=== PATIENT | male | born 1975 | race Caucasian/White ===

== ENCOUNTER 2025-01-28 15:33 | Outpatient (AMB) | payer MEDICAID, SELFPAY ==
--- NOTE | 2025-01-28 15:44 | MHC.OFFVIS ---
Intake Visit Reasons: MEMORY/GAIT ISSUES Allergies venom-honey bee Allergy (Unknown, Verified 01/27/25 10:24) Unknown Medication List - Last Reconciled 01/28/25 by Carmelita Capone MD atorvastatin (Lipitor) 20 mg PO DAILY ergocalciferol (vitamin D2) 1,250 mcg PO QWEEK gabapentin 300 mg PO TID lactulose 30 mL PO BID venlafaxine ER 75 mg PO BEDTIME HPI Comments Details: This is a 49-year-old man with a history of hyperlipidemia pancreatitis and chronic alcohol abuse with heavy drinking for more than 10 years who quit alcohol about a year ago. Since then he has noted significant memory problems that short-term memory. He is also treated for depression and has chronic neck and shoulder pain from arthritis. [facility] Medical History (Updated 01/28/25 @ 15:55 by Carmelita Capone MD) Impaired memory Review of Systems Const Reports headache(s) and Reports weight loss Eyes Reports diplopia ENT Details: Decreased hearing Reports dizziness, Reports headache(s) and Reports sinus pressure Card Reports dyspnea Resp Reports dyspnea Details: Urinary frequency Reports erectile dysfunction Musc Reports numbness and Reports tingling Neuro Reports dizziness, Reports headache(s), Reports memory loss, Reports numbness, Reports tingling and Reports tremor(s) Psych Reports anxiety, Reports depression and Reports memory loss Physical Exam Neuro Other: ?Mini Mental Status Exam Level of Consciousness:?Alert.? Orientation:?Knows correct year, month, date, day and season.?Knows correct city, county and state. Knows correct location and floor.? Registration:?Able to register 3 objects.? Attention:?Serial 7's performed accurately.? Recall:?Able to recall 3 out of 3 objects.? Language:?Normal spontaneous speech, fluency, repetition, naming, comprehension, reading, and writing.? Total Score:?30/30.? Neurological Abnormal neurological findings:??Hyperreflexia 3+ in the upper and lower extremities except for diminished ankle reflexes. Mental Status:?Alert and oriented X 3.?Normal attention, orientation, memory, and affect.? Cranial Nerves:?Pupils are equal, round and reactive to light. Fundoscopy shows normal disc bilaterally. External occular muscles are intact. Visual guevara are full, no ptosis. Face is symmetrical, no facial weakness or droop. Facial sensations are normal. Tongue protrudes in midline. Palate elevates symmetrically. Shoulder shrugging is normal.? Motor Examination:?Normal muscle tone, bulk and strength.?No atrophy or fasciculations.?No drift of the extended upper extremities.?Deep tendon reflexes are 3+ right more than left with diminished ankle reflexes.?Plantars are equivocal.? Motor Strength:? Proximal Muscles (out of 5):?5 Distal Muscles (out of 5):?5 Neck Flexors (out of 5):?5 Neck Extensors (out of 5):?5 Deltoid (out of 5):?5 Biceps (out of 5):?5 Triceps (out of 5):?5 Serratus Anterior (out of 5):?5 Wrist Extensors (out of 5):?5 APB (out of 5):?5 Finger Spread (out of 5):?5 Ileopsoas (out of 5):?5 Quadriceps (out of 5):?5 Hamstrings (out of 5):?5 Tibialis Anterior (out of 5):?5 Peronei (out of 5):?5 EDB (out of 5):?5 Gastrocnemius (out of 5):?5 Straight Leg Raising:?90 degrees.? Sensory Exam:?Normal light touch, temperature, pinprick, vibration and joint-position sensations.?Rhomberg sign is absent.? Coordination:?No ataxia,?no titubation,?puiees-qo-qrxt, cgru-klen-cahd test, and rapid alternating movements were normal.? Gait Exam:?Within normal limits.? Cerebellar Signs:?Xuiwag-lb-nedj and rkbx-yg-hymz is normal.?No dysdiadochokinesia.? Extrapyramidal System:?No tremor or?rigidity, normal facial expressions.?No bradykinesia. No bradyphrenia. Normal arm swing and posture. No propulsion or retropulsion.? Speech:?Normal,?no dysphasia or dysarthria.? General Examination GENERAL APPEARANCE:??normal,?in no acute distress?,?normal,?in no acute distress.? HEAD:??normocephalic,?atraumatic.? EYES:??sclera non-icteric,?conjunctiva clear.? EARS:??auditory canal clear,?tympanic membrane intact, clear.? NOSE:??no lesions.? ORAL CAVITY:??gums normal,?mucosa moist,?no lesions.? THROAT:??clear.? NECK/THYROID:??no cervical lymphadenopathy,?thyroid normal,?neck supple, full range of motion,?no carotid bruit.? SKIN:??no rashes,?no significant birthmarks.? HEART:??S1, S2 normal,?no murmurs?,?S1, S2 normal,?no murmurs.? LUNGS:??clear anteriorly and posteriorly?,?clear anteriorly and posteriorly.? CHEST:??no gross rib deformity,?clear to auscultation.? BACK:??normal exam of spine.? MUSCULOSKELETAL:??normal.? EXTREMITIES:??no edema?,?no edema.? PERIPHERAL PULSES:??normal.? PSYCH:??alert, oriented,?cognitive function intact,?cooperative with exam?,?alert, oriented,?cognitive function intact,?cooperative with exam.? Assessment & Plan Assessment & Plan (1) Memory loss: Code(s): R41.3 - Other amnesia Category: Medical (2) Cervical myelopathy: Code(s): G95.9 - Disease of spinal cord, unspecified Category: Medical (3) Peripheral neuropathy: Code(s): G62.9 - Polyneuropathy, unspecified Category: Medical Plan Labs for treatable causes of memory loss. MRI brain and EEG for evaluation of memory loss. MRI cervical spine for evaluation of cervical myelopathy rule out cord compression. Nerve conduction EMG study lower extremities for pain and numbness in the feet to rule out peripheral neuropathy Orders: Orders TSH reflex Free T4 Today R41.3 - Other amnesia Vitamin B12 and Folate Today G62.9 - Polyneuropathy, unspecified, R41.3 - Other amnesia Vitamin B1 Today R41.3 - Other amnesia NE nerve conduction velocity Today G62.9 - Polyneuropathy, unspecified EEG Routine Today R41.3 - Other amnesia MR head/brain wo con 6 Weeks R41.3 - Other amnesia MR cervical spine wo con Today G95.9 - Disease of spinal cord, unspecified NE electromyogram (EMG) Today G62.9 - Polyneuropathy, unspecified Coding Level of Care Code New Pt Level 5 (16277) Diagnoses Memory loss R41.3 Cervical myelopathy G95.9 Peripheral neuropathy G62.9
--- OUTSIDE RECORDS SUMMARY | 2025-01-29 04:07 | XMS_ITS | Encounter Summary ---
Author Organization [facility] Address [address] [place] [id number] Phone Care Team Providers Care Endoscopy Rn Name Role Phone Rajesh Phillips NP Primary Care Provide r Encounter Details Date Type Department Care Team (Late st Contact Info) Description 10/22/2024 Procedure Pass [facility], Ct Scan - [address] [id number] Social History Tobacco Use Types Packs/Day Years Used Date Smoking Tobacco: Every Day Cigarettes 1 26 Started: 01/31/1999 Smokeless Tobacco: Never Alcohol Use Standard Drinks/Week Comments Not Currently 21 (1 standard drink = 0.6 oz pure alcohol) 3 per day - stopped 02/19/24 Education Answer Date Recorded Are you interested in more education? Not on yocasta e 07/07/2022 Are you concerned about learning? Not on file 07/07/2022 No 07/07/2022 No 07/07/2022 Food Answer Date Recorded Within the past 6 months we worried whether our food would run out before we got money to buy more. Never True 10/22/2024 Within the past 6 months the food we bought just didn't last and we didn't have enough money to get more. Never True Residential Stability Answer Date Recor ded What is your housing situation today? I have lonny sing 10/22/2024 How many times have you move d in the past 12 months? Zero (I did not move) 10/22/2024 Paying for Meds Answer Date Recorded Do you have trouble paying for medicines? No 10/22/2024 Paying Utility Bills Answer Date Record ed Do you have trouble paying your heating or elect ricity bill? No 10/22/2024 Transportation Answer Date Recorded Has the lack of transportati on kept you from medical appointments or from getting medications? Yes 10/22/2024 Digital Access Answer Date Recorded No 10/22/2024 Yes 10/22/2024 Do you have reliable internet access at home? Ye s 10/22/2024 Do you have a device (e.g., phone, tablet, computer) with a working camera? Yes 10/22/2024 Intimate Partner Violence Answer Date R ecorded Are you denied basic needs s uch as food, clothing, or medical care? No 10/22/2024 In the past 12 months have y ou been in a relationship with a person who hurts, threatens, or tries to control you? No 10/22/2024 Are you denied basic needs s uch as food, clothing, or medical care? No 10/22/2024 In the past 12 months have y ou been in a relationship with a person who hurts, threatens, or tries to control you? No 10/22/2024 Sex and Gender Information Value Date Recorded Sex Assigned at Male 10/07/2019 7:57 AM EDT Legal Sex Male 9:27 PM EDT Gender Identity Male 10/07/2019 7:57 AM EDT Sexual Orientation Straight 10/07/2019 7: 57 AM EDT documented as of this encounter Functional Status * Calculated C-SSRS Risk Score (Lifetime/Recent) Answer Date of Assessment Author No Risk Indicated 10/22/2024 10:44 AM EDT Tyra Richard RN * Mineral Suicide Severity Rating Scale (Screener/Recent Self-Report) Question Answer Date of Assessment Author 1. Wish to be (Past 1 Month) No 025 10:44 AM KATIET Tyra Rebolledo, RN 2. Non-Specific Active Suici casey Thoughts (Past 1 Month) No 10/22/2024 10:44 AM KATIET Cuauhtemoc Rebolledo RN 6. Suicidal Behavior (Lifetime) No 10:44 AM KATIET Tyra Rebolledo, RN documented as of this encounter Plan of Treatment Not on file documented as of this encounter Visit Diagnoses Not on filedocumented in this encounter Care Teams Endoscopy Rn Relationship Specialty Start Date End Date Rajesh Phillips NP PCP - General Nurse Practitioner 02/27/23 documented as of this encounter Additional Source Comments The information contained in this document represents components of the legal health record. It is not the complete legal health record.[facility]
--- OUTSIDE RECORDS SUMMARY | 2025-01-29 04:07 | XMS_ITS | Encounter Summary ---
Author Organization [facility] Address [address] [place] [address] Phone Care Team Providers Care Milk Truck Driver Name Role Phone Rajesh Phillips POLE MAKER Primary Care Provide r Encounter Details Date Type Department Care Team (Latest Contact Info) Description 10/25/2023 Transcribe Orders Virtual Department [address] [place] [address] Rajesh Phillips, DRE [address] [place] [address] Back pain with radiculopathy (Primary Dx) Social History Tobacco Use Types Packs/Day Years Used Date Smoking Tobacco: Every Day Cigarettes 1 26 Started: 01/31/1999 Smokeless Tobacco: Never Alcohol Use Standard Drinks/Week Comments Not Currently 21 (1 standard drink = 0.6 oz pu re alcohol) 3 per day Education Answer Date Recorded Are you interested in more education? Not on yocasta e 07/07/2022 Are you concerned about learning? Not on file 07/07/2022 No 07/07/2022 No 07/07/2022 Digital Access Answer Date Recorded No 08/04/2022 No 08/04/2022 Reliable internet access at home? Not on file 08/04/2022 Device with a working camera? Not on file Intimate Partner Violence Answer Date R ecorded Are you denied basic needs s uch as food, clothing, or medical care? No 02/27/2023 In the past 12 months have y ou been in a relationship with a person who hurts, threatens, or tries to control you? No 02/27/2023 Are you denied basic needs s uch as food, clothing, or medical care? No 02/27/2023 In the past 12 months have y ou been in a relationship with a person who hurts, threatens, or tries to control you? No 02/27/2023 Sex and Gender Information Value Date Recorded Sex Assigned at Male 10/07/2019 7:57 AM EDT Legal Sex Male 9:27 PM EDT Gender Identity Male 10/07/2019 7:57 AM EDT Sexual Orientation Straight 10/07/2019 7: 57 AM EDT documented as of this encounter Plan of Treatment Not on file documented as of this encounter Results * XR LUMBOSACRAL SPINE 2-3 VIEWS (10/27/2023 8:47 AM EDT) Anatomical Region Laterality Modality L-spine Computed Radiogr aphy 10/29/2023 12:1 2 PM EDT Impressions 10/29/2023 12:14 PM EDT No evidence of acute fracture or malalignment. Lower lumbar facet arthropathy. Narrative 10/29/2023 12:14 PM EDT XR LUMBOSACRAL SPINE 2-3 VIEWS 10/27/2023 8:31 AM Referring clinician's provided indication for this examination in Epic: Outside Radiology Order; back pain COMPARISON: CT abdomen and pelvis 09/16/2021 FINDINGS: There is no evidence of acute fracture, subluxation, or dislocation. Vertebral body height and sagittal alignment are preserved. There is no significant anterior degenerative endplate marginal osteophytosis or loss of disc space height. There is mild degenerative change of the lower lumbar facet joints. The sacroiliac joints are congruent. Procedure Note Hannah Pittman MD - 10/29/2023 XR LUMBOSACRAL SPINE 2-3 VIEWS 10/27/2023 8:31 AM Referring clinician's provided indication for this examination in Epic:Outside Radiology Order; back pain COMPARISON: CT abdomen and pelvis 09/16/2021 FINDINGS: There is no evidence of acute fracture, subluxation, or dislocation.Vertebral body height and sagittal alignment are preserved. There is nosignificant anterior degenerative endplate marginal osteophytosis or lossof disc space height. There is mild degenerative change of the lowerlumbar facet joints. The sacroiliac joints are congruent. IMPRESSION: No evidence of acute fracture or malalignment. Lower lumbar facetarthropathy. Rajesh Phillips NP IMG XR SPINE Final Result documented in this encounter Visit Diagnoses Diagnosis Back pain with radiculopathy- Primary Back pain with radiculopathy documented in this encounter Care Teams Milk Truck Driver Relationship Specialty Start Date End Date Rajesh Phillips, DRE PCP - General Nurse Practitioner 02/27/23 documented as of this encounter Additional Source Comments The information contained in this document represents components of the legal health record. It is not the complete legal health record.[facility]
--- OUTSIDE RECORDS SUMMARY | 2025-01-29 04:07 | XMS_ITS | Clinical Summary ---
Author Organization [facility] Address [address] [place] [phone] Phone Care Team Providers Care Multimedia Producer Name Role Phone Rajesh Phillips NP Primary Care Provide r Allergies Active Allergy Reactions Criticality Noted Date Comments Allergen Usn-Mksfg-Yjncy Bee 025 Hornet Venom 10/07/2019 Mushroom 12/01/2024 From testing Venom-Yellow Jacket 10/07/2019 Wasp Venom 12/01/2024 Medications * This document contains information received from the source organization and may not represent a complete record from that organization. diphenhydrAMINE (BENADRYL) 25 mg capsule Take 25 mg by mouth 2 (two) times a day as needed. Active atorvastatin (LIPITOR) 20 MG tablet Take 20 mg by mouth daily. 2 Active escitalopram oxalate (LEXAPRO) 5 MG tablet Take 5 mg by mouth daily. 2 Active bisacodyl (GENTLE LAXATIVE, BISACODYL,) 5 mg EC tablet TAKE 4 TABLETS BY MOUTH NEEDED 3 Active venlafaxine (EFFEXOR-XR) 75 MG 24 hr capsule TAKE 1 CAPSULE BY MOUTH IN THE MORNING WITH FOOD 3 Active ergocalciferol (DRISDOL) 50,000 unit capsule Take 50,000 Units by mouth once a week. Active acetaminophen (TYLENOL) 650 MG CR tablet Take 650 mg by mouth every 8 (eight) hours as needed. Active betamethasone dipropionate 0.05 % cream Active EPINEPHrine 0.3 mg/0.3 mL auto-injector Active gabapentin (NEURONTIN) 300 MG capsule Take 300 mg by mouth 3 (three) times a day. Active sildenafiL (VIAGRA) 100 mg tablet Take 100 mg by mouth as needed. 4 Active polycarbophil (FIBERCON) 625 mg tablet Take 625 mg by mouth. 5 Active celecoxib (CELEBREX) 200 MG capsule Take 200 mg by mouth 2 (two) times a day. Active lactulose (CONSTULOSE) 10 gram/15 mL solution TAKE 15 ML BY MOUTH ONCE DAILY Active docusate sodium (COLACE) 100 MG capsule Take 1 capsule (100 mg total) by mouth 2 (two) times a day. 60 capsule 6 5 Active oxyCODONE 5 MG immediate release tablet Take 1 tablet (5 mg total) by mouth every 4 (four) hours as needed for pain (specific location in comments). Partial fill ok 20 tablet 5 01/03/20 25 Discontinu ed(No longer taking) Active Problems Problem Noted Date Diagnosed Date S/P bilateral inguinal hernia repair 01/02/2025 Acute pancreatitis 09/16/2021 Assessment & Plan (09/19/2021 1:04 PM EDT): Probably due to alcohol use-states he drinks 4 beers per day. Triglycerides were normal. Lipase peaked at 1600, down to 480 today. Abdominal pain essentially resolved. CT of the abdomen shows acute interstitial pancreatitis, no enhancing area at the uncinate process that could represent developing necrosis without abscess, tiny hypodensity at the posterior wall of the gallbladder representing a micro calculus or polyp. MRCP revealed findings consistent with acute pancreatitis. Small amount of fluid signal intensity intimately associated with the posterior uncinate process-head of the pancreas may correlate with CT finding. No definite mass or pancreatic necrosis. The finding can be followed by CT. No evidence of biliary ductal dilatation. Probable tiny calculus in the dependent portion of gallbladder. Fatty infiltration of the liver. Appreciate GI and surgical consults -No need to pursue ERCP -advance diet today -DC LR -repeat labs in the morning -if donavan regular diet, home in am 12 -has follow up with new pcp at [facility] -alcohol abstinence counseled Alcohol abuse 09/16/2021 Assessment & Plan (09/19/2021 1:04 PM EDT): Patient admits to 4 drinks per day, states he has never had DTs seizures or shakiness from alcohol withdrawal. No evidence of YOANA. Continue multivitamin thiamine folate while hospitalized [place] [facility] Acute alcoholic pancreatitis 09/16/2021 Resolved Problems Problem Noted Date Diagnosed Date Resolved Date Non-recurrent bilateral ingu inal hernia without obstruction or gangrene 11/18/2024 01/03/20 25 Assessment & Plan (11/18/2024 2:35 PM EDT): This is a 48-year-old gentleman who had 1 episode of suprapubic pain and was seen in the emergency department and diagnosed with bilateral inguinal hernias that were small fat-containing. The patient is interested in having these hernias repaired although he has not had any further evidence of pain in his groin. There is no palpable inguinal hernia on physical examination. I have discussed laparoscopic and open approach of bilateral inguinal hernia with mesh. The patient has opted for the laparoscopic approach. Patient is a smoker and does have a cough so his risk of infection and recurrence are increased and the patient understands this risk. He was told he must avoid all heavy lifting greater than 5 to 10 pounds for the first 2 weeks after surgery and greater than 15 pounds for another 2 weeks to equal 4 weeks of lifting restrictions. I have answered all the patient's questions to his satisfaction. We will schedule this for sometime in the near future. The patient was told he must hold his Celebrex for 1 week prior to surgery to decrease risk of bleeding. Encounters Date Type Department Care Team Description 01/02/2025 1:00 PM EDT Office Visit [facility] [address] [place] [address] [place] [address] Brandon Joe CNP Post-operative state (Primary Dx); S/P bilateral inguinal hernia repair 12/12/2024 Telephone [facility] [address] [place] [address] Mae Casey MD Post-op 12/11/2024 1:12 PM EDT - 12/11/2024 2:59 PM EDT Surgery OR Admitting Dept - Virtual Department [address] [place] [id number] Mae Casey MD LAPAROSCOPIC REPAIR BILATERAL HERNIA INGUINAL with mesh 12/11/2024 12:29 PM EDT Anesthesia Event OR Admitting Dept - Virtual Department [address] [place] [phone] Rei Irving MD 12/11/2024 11:18 AM EDT - 12/11/2024 4:29 PM EDT Hospital Encounter OR Admitting Dept - Virtual Department [address] [place] [id number] Mae Casey MD Discharge Disposition: Home or Self Care 12/11/2024 Procedure Pass OR Admitting Dept - Virtual Department [address] [place] [phone] 12/10/2024 8:30 AM EDT Pre-Admission Testing Pre Procedure Evaluation [address] [place] [phone] Mae Casey MD 12/01/2024 Telephone [facility] [address] [place] [address] [place] [address] Mae Casey MD Post-op 11/18/2024 2:15 PM EDT Office Visit [facility] [address] [place] [phone] Mae Casey MD Non-recurrent bilateral inguinal hernia without obstruction or gangrene (Primary Dx) from Last 3 Months Family History Medical History Relation Comments Diabetes Brother 1 Heart attack Father Diabetes Maternal Grandfather Diabetes type II Maternal Uncle COPD Mother Alzheimer's disease Paternal Grandmother Relation Status Comments Brother 1 Alive Brother 2 Alive Father Maternal Grandfather Maternal Uncle Alive Mother Alive Paternal Grandmother Sister Alive Social History Tobacco Use Types Packs/Day Years Used Date Smoking Tobacco: Every Day Cigarettes 1 Started: 01/31/1999 Smokeless Tobacco: Never Tobacco Cessation:Ready to Q uit: Not Asked; Counseling Given: Not Answered Comments:Quit 11/14/2024 Alcohol Use Standard Drinks/Week Comments Never 0 (1 standard drink = 0.6 oz pur e alcohol) sober 2023 Education Answer Date Recorded Are you interested [...] as food, clothing, or medical care? No 12/11/2024 In the past 12 months have y ou been in a relationship with a person who hurts, threatens, or tries to control you? No 12/11/2024 Are you denied basic needs s uch as food, clothing, or medical care? No 12/11/2024 In the past 12 months have y ou been in a relationship with a person who hurts, threatens, or tries to control you? No 12/11/2024 Sex and Gender Information Value Date Recorded Sex Assigned at Male 10/07/2019 7:57 AM EDT Legal Sex Male 9:27 PM EDT Gender Identity Male 10/07/2019 7:57 AM EDT Sexual Orientation Straight 10/07/2019 7: 57 AM EDT Occupation Industry Job Start Date Job End Date unemployed Not on file Not on file Not on file Last Filed Vital Signs Vital Sign Reading Time Taken Comments Blood Pressure 104/76 01/02/2025 12:55 PM EDT Pulse 106 01/02/2025 12:55 PM EDT Temperature 36.3 C (97.3 F) 01/02/2025 12:55 PM EDT Respiratory Rate 17 12/11/2024 1:50 PM EDT Oxygen Saturation 98% 01/02/2025 12:55 PM EDT Inhaled Oxygen Concentration - - Weight 83.5 kg (184 lb) 12/11/2024 11:32 AM EDT Height 167.6 cm (5' 6 ) 12/11/2024 11:32 AM EDT Body Mass Index 29.7 12/11/2024 11:32 AM EDT Plan of Treatment Health Maintenance Due Date Last Done Comments DEPRESSION SCREENING 1987 HIV ONE-TIME SCREENING (18-6 5 YEARS) 12/02/1993 PNEUMOCOCCAL VACCINES (0-49 years) (1 of 2 - PCV) 12/02/1994 COLOGUARD 12/02/2020 FIT TEST 12/02/2020 FOBT 12/02/2020 SIGMOIDOSCOPY 12/02/2020 VIRTUAL COLONOSCOPY 12/02/2020 INFLUENZA VACCINE (#1) 2024 , 12/30/2021 COVID-19 VACCINE (4 - 2024-2 6 season) 2024 01/05/2023, 09/30/2020, 09/06/2020 SMOKING Hx and SMOKELESS TOBACCO SCREENING 01/02/2026 01/02/2025 SCREENING FOR DIABETES 10/23/2027 10/22/2024 LIPID PANEL 01/11/2028 01/10/2023, 09/17/2021 COLONOSCOPY 02/28/2029 02/28/2024, 12/16/2021 COLORECTAL CANCER SCREENING 02/28/2029 Adult Td,Tdap Booster 10/22/2031 10/21/2021 , 01/01/2004 HEPATITIS C SCREENING Completed 09/16/2021 , 09/16/2021 HEPATITIS A VACCINES Aged Out 06/02/2024, 10/25/2023 No longer eligible based on patient's age to complete this topic HIB VACCINES Aged Out No longer eligi ble based on patient's age to complete this topic MENINGOCOCCAL VACCINES (ACWY) Aged Out No longer eligible based on patient's age to complete this topic MENINGOCOCCAL VACCINES (B) Aged Out N o longer eligible based on patient's age to complete this topic Medical Devices Implanted Type Area Sawmill Worker Device Identifier Shelf Expiration Date Model / Serial / Lot Graft Mesh 10.5cm 16cm 3dmax Polypropylene Monofilament Patch Laparoscopy Hernia Repair Right Cs/1ea - [id number] Implanted:Qty: 1 on 12/11/2024 by Mae Casey MD at [facility] STANDARD Right: Groin [employer] 03/08/2029 [id number] / / [id number] Left Wrist Graft Mesh 10.5cm 16cm 3dmax Polypropylene Monofilament Patch Laparoscopy Hernia Repair Left Cs/1ea - [id number] Implanted:Qty: 1 on 12/11/2024 by Mae Casey MD at [facility] Left: Groin [employer] 03/08/2029 [id number] / / [id number] Procedures Procedure Name Priority Date/Time Associated Diagnosis Comments AIRWAY PLACEMENT Routine 12/11/2024 12:3 3 PM EDT PA LAP,INGUINAL HERNIA REPR,INITIAL 12/11/2024 12:28 PM EDT Non-recurrent bilateral inguinal hernia without obstruction or gangrene ENDOSCOPY, COLON 02/28/2024 11:0 3 AM EST LIPID PANEL Routine 09/17/2021 6:26 AM EDT HEPATITIS C ANTIBODY, QUALITATIVE Routine 09/16/2021 7:41 PM EDT from Last 3 Months or Most Recently Relevant to Health Maintenance Results * ANES ETT DOUBLE LUMEN - AIRWAY LDA (12/11/2024 12:33 PM EDT) Narrative Sloane Muhammad CRNA - 12/11/2024 12:33 PM EDT Sloane Muhammad CRNA 12/11/2024 12:52 PM Airway Placement Procedure Note: Patient was not difficult to intubate. Procedure performed by: fellow/resident/HARDBOARD PANEL PRINTER Anesthesiologist: Rei Irving MD Fellow/Resident/HARDBOARD PANEL PRINTER: Sloane Muhammad CRNA Airway procedure initiated at:12/11/2024 12:33 PM and ended at. Personal Protective Equipment: Mask: surgical mask Eye Protection: eye shield Gloves: gloves Gown: no gown Mask Ventilation: Quality: easy Airway Placement: Technique: direct laryngoscopy Rapid sequence induction: no Details: Blade type: Mac Blade size: 3 Direct view: grade 1 Number of attempts: 1 ETT type: cuffed ETT size: 7.0 ETT depth at teeth: 20 ETT cuff inflation volume: 8 Tube position confirmed by: bilateral breath sounds and EtCO2 Outcomes: Evidence of dental injury? yes Complications observed? no us Rei Irving MD PA ANESTHESIA Final Result * ENDOSCOPY, COLON (02/28/2024 11:03 AM EST) Narrative Transcriptions Dave Clay MD - 02/28/2024 11:03 AM EST [facility] Patient Name: Bryson Henry Attending MD:: DAVE CLAY MD, Procedure Date: 02/28/2024 11:03AM Date of : 1975 Age: 48 Admit Type: Outpatient Gender: Male Room: [place] [address] Referring MD: Rajesh Tillman Exam Type: Colonoscopy Indications: Last colonoscopy: December 2021, Anal bleeding, Personal history of colonic polyps Medications: Propofol per Anesthesia Procedure: Informed consent was obtained from the patientafter discussion of the indications, limitations, alternatives, benefits, and risks of the procedure. Risks specifically discussed include but are not limited to medication reactions, missed lesions, bleeding, perforation, or the need for emergent surgery. Throughout the procedure, the patient's blood pressure, pulse, end-tidal CO2, and oxygensaturations were monitored continuously. The Olympus adult variable colonoscope [id number] #5 was introduced through the anus and advanced to the cecum, identified by appendiceal orifice andileocecal valve. The ileocecal valve, appendiceal orifice,and rectum were photographed. The colonoscopy was performed without difficulty. The patient tolerated the procedure well. The quality of the bowel preparation was excellent. The bowel preparationused was GoLYTELY via split dose instruction. Complications: No immediate complications. Estimated blood loss:None. Findings: The digital rectal exam was normal. Pertinent negatives include normal prostate (size, shape, and consistency). Thrombosed external and internal hemorrhoids were found during retroflexion and during perianal exam. The hemorrhoids were small. Not obvious on initial perianal exam, but prominant hemorrhoid with thrombosis just below dentate line. Very small internal ones. A few small-mouthed diverticula were found in the sigmoid colon. The exam was otherwise without abnormality. Retroflexion in the right colon was performed. Two sessile polyps were found in the recto-sigmoid colon. The polyps were small in size. These polyps were removed with a cold snare. Resection and retrieval were complete. A 6 mm polyp was found in the mid rectum. The polyp was sessile. The polyp was removed with a coldsnare. Resection and retrieval were complete. Impression: - Thrombosed external and internal hemorrhoids. - Diverticulosis in the sigmoid colon. - The examination was otherwise normal. - No specimens collected. small polyps, rectum and rectosigmoid, removed Recommendation: - Repeat colonoscopy in 5 years for surveillance. DAVE CLAY MD 02/28/2024 11:49:40 AM This report has been signed electronically. Number of Addenda: 0 Note Initiated On: 02/28/2024 11:03 AM Procedure Code(s): --- Professional --- 57669, Colonoscopy, flexible; with removal of tumor(s), polyp(s), or other lesion(s) by snare technique --- Technical --- 68272, Colonoscopy, flexible; with removal of tumor(s), polyp(s), or other lesion(s) by snare technique Diagnosis Code(s): --- Professional --- K64.5, Perianal venous thrombosis K62.5, Hemorrhage of anus and rectum Z86.010, Personal history of colonic polyps K57.30, Diverticulosis of large intestine without perforation or abscess without bleeding --- Technical --- K64.5, Perianal venous thrombosis K62.5, Hemorrhage of anus and rectum Z86.010, Personal history of colonic polyps K57.30, Diverticulosis of large intestine without perforation or abscess without bleeding CPT copyright 2021 [employer]. All rights reserved. The codes documented in this report are preliminary and upon performing arts road manager reviewmay be revised to meet current compliance requirements. Procedure Date: 02/28/2024 11:03:[address] [place] [id number] Rajesh Tillman MD GI PROCEDURE ORDERA BLES Final Result * (ABNORMAL) Lipid panel (09/17/2021 6:26 AM EDT) HDL 28 mg/dL [facility] Comment: Interpretation <40 mg/dL: Low HDL cholesterol (major risk factor for CHD) Greater than or equal to 60 mg/dL: High HDL cholesterol ( negative risk factor for CHD) HDL - cholesterol is affected by a number of factors, e.g. smoking, excerise, hormones, sex and age. CHOLESTEROL 191 0 - 240 mg/dL [facility] TRIGLYCERIDES 135 30 - 160 mg/dL [facility] LDL 136(H) 50 - 129 mg/dL [facility] Comment: LDL levels in terms of risk for coronary heart disease: <100 mg/dL: Optimal 100-129 mg/dL: Near or above optimal 130-159 mg/dL: Borderline high 160-189 mg/dL: High >190 mg/dL: Very High CARDIAC RISK RATIO 6.8(H) 3.4 - 5.0 C [facility] Blood 09/17/2021 6:26 AM EDT 09/17/2021 7:48 AM EDT us Kimmy Zimmerance [employer] LAB BLOOD BKR ORDERABLE S Final Result [address] [id number] * Hepatitis C antibody, qualitative (09/16/2021 7:41 PM EDT) HCV NON-REACTIV E NON-REACTI VE [facility] Blood 09/16/2021 7:41 PM EDT 09/16/2021 7:51 PM EDT us Kimmy Pandyaperance [employer] LAB BLOOD BKR ORDERABLE S Final Result Performing Organization Address City/[facility]/ZIP Co de Phone Number [address] [address] from Last 3 Months or Most Recently Relevant to Health Maintenance Insurance C3 ACO C3 ACO C3 ACO C3 ACO C3 ACO C3 ACO C3 ACO C3 ACO [facility] C3 ACO Advance Directives For more information, please contact: [phone] (9AM - 5PM [facility], Sunday-Sunday) Documents on File Type Date Recorded 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 Healthcare Proxy 09/21/2021 3:14 PM * Full Code (Latest Code Status on File) Date Activated Date Inactivated Comments 12/11/2024 11:28 AM Question Answer Comments Code Status Confirmed With: Patient * Full Code Date Activated Date Inactivated Comments 09/16/2021 7:23 PM 12/11/2024 11:28 AM Question Answer Comments Code Status Confirmed With: Patient Care Teams Multimedia Producer Relationship Specialty Start Date End Date Rajesh Phillips NP PCP - General Nurse Practitioner 02/27/23 Additional Source Comments The information contained in this document represents components of the legal health record. It is not the complete legal health record.[facility]
--- OUTSIDE RECORDS SUMMARY | 2025-01-29 04:07 | XMS_ITS | Encounter Summary ---
Author Organization [facility] Address [address] [place] [phone] Phone Care Team Providers Care Derrick Barge Operator Name Role Phone Pcp, Unknown Primary Care Provider Rajesh Butterfield LEAD PRESSMAN [employer]OTO GRAVURE PRINTING Primary Care Provide r Rajesh Phillips LEAD PRESSMAN [employer] GRAVURE PRINTING Primary Care Provide r Encounter Details Date Type Department Care Team (Late st Contact Info) Description 11/30/2022 Transcribe Orders Virtual Department [address] [place] [address] Rajesh Phillips, DRE [address] [place] [address] Injury of shoulder, right, sequela (Primary Dx) Social History Tobacco Use Types [...] with a working camera? Not on file Sex and Gender Information Value Date Recorded Sex Assigned at Male 10/07/2019 7:57 AM EDT Legal Sex Male 9:27 PM EDT Gender Identity Male 10/07/2019 7:57 AM EDT Sexual Orientation Straight 10/07/2019 7: 57 AM EDT documented as of this encounter Plan of Treatment Not on file documented as of this encounter Results * XR SHOULDER 2 VIEWS (RIGHT) (12/15/2022 11:31 AM EDT) Anatomical Region Laterality Modality Shoulder Right Computed Radiogr aphy 12/20/2022 11:0 2 AM EDT Impressions 12/20/2022 11:03 AM EDT No acute osseous abnormality. Eccentrically positioned sclerotic lesion in the humeral metadiaphysis, likely a healed fibro-osseous lesion. Narrative 12/20/2022 11:03 AM EDT XR SHOULDER 2 OR MORE VIEWS (RIGHT) COMPARISON: None FINDINGS: Normal glenohumeral joint space. Moderate to severe acromioclavicular degenerative changes. No acute fracture or dislocation. There is an eccentrically positioned sclerotic lesion in the humeral metadiaphysis. Procedure Note Mary Ann Hernandez MD - 12/20/2022 XR SHOULDER 2 OR MORE VIEWS (RIGHT) COMPARISON: None FINDINGS: Normal glenohumeral joint space. Moderate to severe acromioclaviculardegenerative changes. No acute fracture or dislocation. There is aneccentrically positioned sclerotic lesion in the humeral metadiaphysis. IMPRESSION: No acute osseous abnormality. Eccentrically positioned sclerotic lesion in the humeral metadiaphysis,likely a healed fibro-osseous lesion. Rajesh Phillips NP IMG XR UPPER EXTREMIT Y Final Result documented in this encounter Visit Diagnoses Diagnosis Injury of shoulder, right, sequela- Primary Injury of shoulder, right, sequela documented in this encounter Care Teams Derrick Barge Operator Relationship Specialty Start Date End Date Pcp, Unknown PCP - General 09/16/21 12/14/22 Rajesh Phillips NP PCP - General Nurse Practitioner 12/15/22 02/26/23 Rajesh Phillips NP PCP - General Nurse Practitioner 02/27/23 documented as of this encounter Additional Source Comments The information contained in this document represents components of the legal health record. It is not the complete legal health record.[facility]
--- OUTSIDE RECORDS SUMMARY | 2025-01-29 04:07 | XMS_ITS | Encounter Summary ---
Author Organization [facility] Address [address] [place] [phone] Phone Care Team Providers Care Client Associate Name Role Phone Pcp, Unknown Primary Care Provider Rajesh Butterfield HARDWOOD FLOOR INSTALLER Primary Care Provide r Rajesh Phillips HARDWOOD FLOOR INSTALLER Primary Care Provide r Encounter Details Date Type Department Care Team (Late st Contact Info) Description 12/16/2021 Procedure Pass [facility] Endoscopy Admitting Dept Virtual Department [address] [place] [address] Social History Tobacco Use Types Packs/Day Years Used Date Smoking Tobacco: Every Day Cigarettes 1 26 Started: 01/31/1999 Smokeless Tobacco: Never Alcohol Use Standard Drinks/Week Comments Not Currently 21 (1 standard drink = 0.6 oz pu re alcohol) 3 per day Sex and Gender Information Value Date Recorded Sex Assigned at Male 10/07/2019 7:57 AM EDT Legal Sex Male 9:27 PM EDT Gender Identity Male 10/07/2019 7:57 AM EDT Sexual Orientation Straight 10/07/2019 7: 57 AM EDT documented as of this encounter Plan of Treatment Not on file documented as of this encounter Visit Diagnoses Not on filedocumented in this encounter Care Teams Client Associate Relationship Specialty Start Date End Date Pcp, Unknown PCP - General 09/16/21 12/14/22 Rajesh Phillips NP PCP - General Nurse Practitioner 12/15/22 02/26/23 Rajesh Phillips NP PCP - General Nurse Practitioner 02/27/23 documented as of this encounter Additional Source Comments The information contained in this document represents components of the legal health record. It is not the complete legal health record.[facility]
--- OUTSIDE RECORDS SUMMARY | 2025-01-29 04:07 | XMS_ITS | Encounter Summary ---
Author Organization [employer] [facility] Address [address] [place] [address] [address] [address] Care Team Providers Care Parking Enforcement Technician Name Role Phone Kelby Mcconnell Unavailable Unavailable Rajesh Phillips NP Primary Care Provider [phone] Reason for Visit * Reason Comments Med Refill Encounter Details Date Type Department Care Team (Late st Contact Info) Description 07/20/2022 Refill [facility] MEDICAL [address] [place] [address] Josy Alejo PA-C Social History Tobacco Use Types Packs/Day Years Used Date Smoking Tobacco: Every Day Cigarettes 1 15 Alcohol Use Standard Drinks/Week Comments Yes 8 (1 standard drink = 0.6 oz pur e alcohol) Sex and Gender Information Value Date Recorded Sex Assigned at Male 03/16/2022 8:45 AM EST Legal Sex Male 8:39 PM EDT Gender Identity Male 03/16/2022 8:45 AM EST Sexual Orientation Don't know 04/26/2022 8: 31 AM EST documented as of this encounter Plan of Treatment Upcoming Encounters Date Type Department Care Team (Late st Contact Info) Description 02/09/2025 2:00 PM EST Office Visit [facility] MEDICAL [address] [place] [address] Rajesh Phillips NP [address] [place] [address] documented as of this encounter Visit Diagnoses Not on filedocumented in this encounter Care Teams Parking Enforcement Technician Relationship Specialty Start Date End Date Rajesh Phillips NP [address] [place] [address] PCP - General Internal Medicine 11/30/22 Kelby Mcconnell Community Health Worker Case Management 10/19/22 documented as of this encounter
--- OUTSIDE RECORDS SUMMARY | 2025-01-29 04:07 | XMS_ITS | Encounter Summary ---
Author Organization [employer] Address [address] [facility] 7t [place] [address] Care Team Providers Care Reed Fixer Name Role Phone Kelby Mcconnell Unavailable Unavailable Rajesh Phillips NP Primary Care Provider [phone] Encounter Details Date Type Department Care Team (Late st Contact Info) Description 03/03/2024 Orders Only [facility] [address] [place] [address] Rajesh Phillips NP [address] [place] [address] Social History Tobacco Use Types Packs/Day Years Used Date Smoking Tobacco: Every Day Cigarettes 1 15 Smokeless Tobacco: Never Alcohol Use Standard Drinks/Week Comments Yes 8 (1 standard drink = 0.6 oz pur e alcohol) Depression Answer Date Recorded Patient Health Questionnaire-9 Score 8 02/14/2023 Patient Health Questionnaire-9 Score 8 02/14/2023 Last PHQ-9: Questionnaire Data Not on file 1 04/17/2022 Housing Stability Answer Date Recorded What is your housing situation today? I have lonny sibley 10/25/[address] you li ve. Do you have problems with any of the following? None of the above 10/25/2023 Food Insecurity Answer Date Recorded Within the past 12 months, y ou worried that your food would run out before you got money to buy more: Never True 10/25/2023 Within the past 12 months,th e food you bought just didn't last and you didn't have enough money to get more: Never True Transportation Answer Date Recorded In the past 12 months, has l ack of transportation kept you from medical appts, meetings, work or from getting things needed for daily living? No 10/25/2023 Utilities Answer Date Recorded In the past 12 months, has t he electric, gas, oil or water company threatened to shut off services in your home? No 10/25/2023 Depression Answer Date Recorded Patient Health Questionnaire-2 Score 2 10/25/2023 Internet Access Answer Date Recorded Internet Access Q1 Yes 11/09/2023 Internet Access Q2 Not on file 11/09/2023 Sex and Gender Information Value Date Recorded Sex Assigned at Male 03/16/2022 8:45 AM EST Legal Sex Male 8:39 PM EDT Gender Identity Male 03/16/2022 8:45 AM EST Sexual Orientation Don't know 04/26/2022 8: 31 AM EST documented as of this encounter Plan of Treatment Upcoming Encounters Date Type Department Care Team (Late st Contact Info) Description 02/09/2025 2:00 PM EST Office Visit [facility] MEDICAL [address] [place] [address] Rajesh Phillips NP [address] [place] [address] documented as of this encounter Procedures Procedure Name Priority Date/Time Associated Diagnosis Comments PATHOLOGY REPORT (HISTOPATHOLOGY) Routine 02/28/2024 4:18 PM EST documented in this encounter Results * Pathology Report (Histopathology) (02/28/2024 4:18 PM EST) Tissue Rajesh Phillips NP LAB PATHOLOGY ORDERABLES Fin al Result documented in this encounter Visit Diagnoses Not on filedocumented in this encounter Additional Health Concerns Assessment Noted Time PHQ-9 Depression Total Score: 8 02/15/20 23 3:56 PM EST documented as of this encounter Care Teams Reed Fixer Relationship Specialty Start Date End Date Rajesh Phillips NP [address] [place] [address] PCP - General Internal Medicine 11/30/22 Kelby Mcconnell Community Health Worker Case Management 10/19/22 documented as of this encounter
--- OUTSIDE RECORDS SUMMARY | 2025-01-29 04:07 | XMS_ITS | Encounter Summary ---
Author Organization [employer] Address 75 [facility] 7t [place] [address] Care Team Providers Care Extractor Loader And Unloader Name Role Phone Kelby Mcconnell Unavailable Unavailable Rajesh Phillips NP Primary Care Provider [phone] Reason for Visit * Reason Comments Med Refill Encounter Details Date Type Department Care Team (Late st Contact Info) Description 01/19/2024 Refill [facility] MEDICAL [address] [place] [address] Rajesh Phillips NP [address] [place] [address] Erectile dysfunction, unspecified erectile dysfunction type Social History Tobacco Use Types Packs/Day Years [...] AM EST documented as of this encounter Miscellaneous Notes * Telephone Encounter - Temo Zavala CMA - 01/21/2024 9:57 AM EST Duplicate request documented in this encounter Plan of Treatment Upcoming Encounters Date Type Department Care Team (Late st Contact Info) Description 02/09/2025 2:00 PM EST Office Visit [place] [facility] MEDICAL [address] [place] [address] Rajesh Phillips NP [address] [place] [address] documented as of this encounter Visit Diagnoses Diagnosis Erectile dysfunction, unspecified erectile dysfunction type documented in this encounter Additional Health Concerns Assessment Noted Time PHQ-9 Depression Total Score: 8 02/15/20 23 3:56 PM EST documented as of this encounter Care Teams Extractor Loader And Unloader Relationship Specialty Start Date End Date Rajesh Phillips NP [address] [place] [address] PCP - General Internal Medicine 11/30/22 Kelby Mcconnell Community Health Worker Case Management 10/19/22 documented as of this encounter
--- OUTSIDE RECORDS SUMMARY | 2025-01-29 04:07 | XMS_ITS | Encounter Summary ---
Author Organization [facility] Address [address] [place] [address] Phone Care Team Providers Care Client Partner Name Role Phone Pcp, Unknown Primary Care Provider Rajesh Butterfield NP Primary Care Provide r Rajesh Phillips MANUFACTURING CHIEF ENGINEER Primary Care Provide r Encounter Details Date Type Department Care Team (Late st Contact Info) Description 09/16/2021 Procedure Pass [facility], [facility] Scan - [facility] [address] [place] [address] Social History Tobacco Use Types Packs/Day Years Used Date Smoking Tobacco: Every Day Cigarettes 1 26 Started: 01/31/1999 Smokeless Tobacco: Never Alcohol Use Standard Drinks/Week Comments Yes 8 (1 standard drink = 0.6 oz pur e alcohol) 8 per week Sex and Gender Information Value Date Recorded Sex Assigned at Male 10/07/2019 7:57 AM EDT Legal Sex Male 9:27 PM EDT Gender Identity Male 10/07/2019 7:57 AM EDT Sexual Orientation Straight 10/07/2019 7: 57 AM EDT documented as of this encounter Functional Status * Calculated C-SSRS Risk Score (Lifetime/Recent) Answer Date of Assessment Author No Risk Indicated 09/16/2021 12:26 PM EDT Daisy Farias RN * [place] Suicide Severity Rating Scale (Screener/Recent Self-Report) Question Answer Date of Assessment Author 1. Wish to be (Past 1 Month) No 09/16/2021 12:26 PM EDT Daisy Farias RN 2. Non-Specific Active Suicidal Thoughts (Past 1 Month) No 09/16/2021 12:26 PM EDT Daisy Farias RN 6. Suicidal Behavior (Lifetime) No 09/16/2021 12:26 PM EDT Daisy Farias RN documented as of this encounter Plan of Treatment Not on file documented as of this encounter Visit Diagnoses Not on filedocumented in this encounter Care Teams Client Partner Relationship Specialty Start Date End Date Pcp, Unknown PCP - General 09/16/21 12/14/22 Rajesh Phillips NP PCP - General Nurse Practitioner 12/15/22 02/26/23 Rajesh Phillips NP PCP - General Nurse Practitioner 02/27/23 documented as of this encounter Additional Source Comments The information contained in this document represents components of the legal health record. It is not the complete legal health record.[facility]
--- OUTSIDE RECORDS SUMMARY | 2025-01-29 04:07 | XMS_ITS | Encounter Summary ---
Author Organization [facility] Address [address] [facility] [address] [place] [phone] Phone Care Team Providers Care Credit Verification Clerk Name Role Phone Unknown, Unknown Primary Care Provider Lalo Burt NP Primary Care Provider [phone] Pcp, Unknown Primary Care Provider Rajesh Butterfield NP Primary Care Provide r Rajesh Phillips NP Primary Care Provide r Encounter Details Date Type Department Care Team (Latest Contact Info) Description 08/11/2019 Transcribe Orders Virtual Department [address] [place] [address] Lalo Lozano, DRE [address] [place] [address] [email or web address] Smoker (Primary Dx) Social History Tobacco Use Types [...] as of this encounter Visit Diagnoses Diagnosis Smoker- Primary Tobacco use disorder documented in this encounter Additional Health Concerns Infection Onset Date Last Indicated Resolved Time CoV-Risk 11/10/2020 11/10/2020 11/20/2020 1:24 AM EDT documented as of this encounter Care Teams Credit Verification Clerk Relationship Specialty Start Date End Date Unknown, Unknown, PCP - General 01/01/19 10/06/19 Lalo Lozano NP [address] [place] [address] [email or web address] PCP - General Family Medicine 10/07/19 11/09/20 Pcp, Unknown PCP - General 09/16/21 12/14/22 Rajesh Phillips NP PCP - General Nurse Practitioner 12/15/22 02/26/23 Rajesh Phillips NP PCP - General Nurse Practitioner 02/27/23 documented as of this encounter Additional Source Comments The information contained in this document represents components of the legal health record. It is not the complete legal health record.[facility]
--- OUTSIDE RECORDS SUMMARY | 2025-01-29 04:07 | XMS_ITS | Encounter Summary ---
Author Organization [employer] Address 75 [facility] 7t [place] [address] Care Team Providers Care Corrective And Manual Arts Therapist Name Role Phone Kelby Mcconnell Unavailable Unavailable Rajesh Phillips NP Primary Care Provider Encounter Details Date Type Department Care Team (Late st Contact Info) Description 03/18/2024 Orders Only [facility] [address] [place] [address] Rajesh Phillips NP [address] [place] [address] Social History Tobacco Use Types Packs/Day Years [...] 02/09/2025 2:00 PM EST Office Visit [facility] MED[facility] [address] [place] [address] Rajesh Phillips NP [address] [place] [address] documented as of this encounter Procedures Procedure Name Priority Date/Time Associated Diagnosis Comments EGD Routine 02/28/2024 11:07 AM EST documented in this encounter Results * EGD (02/28/2024 11:07 AM EST) Anatomical Region Laterality Modality Endoscopy Rajesh Phillips NP ENDOSCOPY PROCEDURE ORDERABL ES Final Result documented in this encounter Visit Diagnoses Not on filedocumented in this encounter Additional Health Concerns Assessment Noted Time PHQ-9 Depression Total Score: 8 02/15/20 23 3:56 PM EST documented as of this encounter Care Teams Corrective And Manual Arts Therapist Relationship Specialty Start Date End Date Rajesh Phillips NP [address] [place] [address] PCP - General Internal Medicine 11/30/22 Kelby Mcconnell Community Health Worker Case Management 10/19/22 documented as of this encounter
--- OUTSIDE RECORDS SUMMARY | 2025-01-29 04:07 | XMS_ITS | Encounter Summary ---
Author Organization [employer] Address [address] [facility] 7t [place] [address] Care Team Providers Care Customs Manager Name Role Phone Kelby Mcconnell Unavailable Unavailable Rajesh Phillips NP Primary Care Provider [phone] Reason for Visit * Reason Comments Med Refill Encounter Details Date Type Department Care Team (Late st Contact Info) Description 12/18/2023 Refill [facility] MEDICAL [address] [place] [address] Rajesh Phillips NP [address] [place] [address] Alcoholism (CMS/HCC); Vitamin D deficiency Social History Tobacco Use Types Packs/Day Years [...] encounter Miscellaneous Notes * Telephone Encounter - SHAMEKA Roche - 12/18/2023 2:59 PM EDT Already queued up documented in this encounter Plan of Treatment Upcoming Encounters Date Type Department Care Team (Late st Contact Info) Description 02/09/2025 2:00 PM EST Office Visit [facility] MED[facility] [address] [place] [address] Rajesh Phillips NP [address] [place] [address] documented as of this encounter Visit Diagnoses Diagnosis Alcoholism (CMS/HCC) (HCC) Other and unspecified alcohol dependence, unspecified drinking behavior Vitamin D deficiency documented in this encounter Additional Health Concerns Assessment Noted Time PHQ-9 Depression Total Score: 8 02/15/20 23 3:56 PM EST documented as of this encounter Care Teams Customs Manager Relationship Specialty Start Date End Date Rajesh Phillips NP [address] [place] [address] PCP - General Internal Medicine 11/30/22 Kelby Mcconnell Community Health Worker Case Management 10/19/22 documented as of this encounter
--- OUTSIDE RECORDS SUMMARY | 2025-01-29 04:07 | XMS_ITS | Encounter Summary ---
Author Organization [facility] Address [address] [facility] [address] [place] [phone] Phone Care Team Providers Care Market Director Name Role Phone Pcp, Unknown Primary Care Provider Rajesh Butterfield CHURN OPERATOR MARGARINE Primary Care Provide r Rajesh Phillips CHURN OPERATOR MARGARINE Primary Care Provide r Encounter Details Date Type Department Care Team (Late st Contact Info) Description 09/17/2021 Procedure Pass [facility], [address] [address] Social History Tobacco Use Types Packs/Day Years [...] on filedocumented in this encounter Care Teams Market Director Relationship Specialty Start Date End Date Pcp, Unknown PCP - General 09/16/21 12/14/22 Rajesh Phillips NP PCP - General Nurse Practitioner 12/15/22 02/26/23 Rajesh Phillips NP PCP - General Nurse Practitioner 02/27/23 documented as of this encounter Additional Source Comments The information contained in this document represents components of the legal health record. It is not the complete legal health record.[facility]
--- OUTSIDE RECORDS SUMMARY | 2025-01-29 04:07 | XMS_ITS | Encounter Summary ---
Author Organization [facility] Address [address] [facility] [address] [place] [phone] Phone Care Team Providers Care Transit Planning Director Name Role Phone Pcp, Unknown Primary Care Provider Rajesh Butterfield NP Primary Care Provide r Rajesh Phillips [employer] PARALEGAL Primary Care Provide r Encounter Details Date Type Department Care Team (Latest Contact Info) Description 02/14/2022 Transcribe Orders [facility] [address] [address] Irina Mcneil NP [address] [place] [address] Alcohol-induced acute pancreatitis, unspecified complication status (Primary Dx); Alcohol abuse Social History Tobacco Use Types Packs/Day Years [...] documented as of this encounter Results * Iron and iron binding capacity (02/14/2022 3:18 PM EST) IRON 121 45 - 160 ug/dL [facility] IRON BINDING CAPACITY 369 228 - 428 ug/dL [facility] TRANSFERRIN SATURAT. 33 20 - 55 % [facility] Blood 02/14/2022 3:18 PM EST 02/14/2022 3:21 PM EST Irina Mcneil NP LAB BLOOD BKR ORDERABLES Final Result Performing Organization Address City/[facility] [address]/ZIP Co de Phone Number [address] [phone] * C-Reactive Protein (02/14/2022 3:18 PM EST) C REACTIVE PROTEIN <3.0 0.0 - 4.0 mg/L [facility] Blood 02/14/2022 3:18 PM EST 02/14/2022 3:21 PM EST Irina Mcneil NP LAB BLOOD BKR ORDERABLES Final Result Performing Organization Address [facility] [address]/[facility] Co de Phone Number [address] [address] * (ABNORMAL) Comprehensive metabolic panel (02/14/2022 3:18 PM EST) SODIUM 139 133 - 146 mmol/L [facility] POTASSIUM 3.8 3.3 - 5.1 mmol/L [facility] CHLORIDE 102 96 - 108 mmol/L [facility] CO2 23 21 - 35 mmol/L [facility] BUN 5(L) 6 - 19 mg/dL [facility] CREATININE 0.60 0.5 - 1.5 mg/dL [facility] GLUCOSE 135(H) 70 - 99 mg/dL [facility] ALBUMIN 4.2 3.9 - 4.8 g/dL [facility] TOTAL PROTEIN 7.4 6.5 - 8.0 g/dL [facility] CALCIUM 9.1 8.4 - 10.3 mg/dL [facility] ALKALINE PHOSPHATASE 117 39 - 117 U/L [facility] TOTAL BILIRUBIN 0.4 0.0 - 1.2 mg/dL [facility] AST 62(H) 0 - 37 U/L [facility] ALT 39 0 - 40 U/L [facility] GLOBULIN 3.2 1 - 4.8 g/dL [facility] EGFR >120 >59 mL/min/1.7 3m2 [facility] Comment:Estimated glomerular filtration rate calculated using the CKD-EPI refit equation. ANION GAP 18 10 - 20 mmol/L [facility] Blood 02/14/2022 3:18 PM EST 02/14/2022 3:21 PM EST Irina Mcneil NP LAB BLOOD BKR ORDERABLES Final Result Performing Organization Address City/[facility] [address]/ZIP Co de Phone Number [address] [address] * CBC (02/14/2022 3:18 PM EST) WBC 7.05 4.00 - 11.00 K/uL [facility] RBC 5.06 4.23 - 5.82 M/uL [facility] HGB 15.9 13.4 - 17.5 g/dL [facility] HCT 45.3 37.0 - 51.0 % [facility] PLT 244 140 - 430 K/uL [facility] MCV 89.5 78.0 - 97.0 fL [facility] MCH 31.4 25.0 - 33.0 pg [facility] MCHC 35.1 32.0 - 36.0 g/dL [facility] RDW 14.6 11.0 - 15.0 % [facility] MPV 9.7 8.4 - 12.8 fl [facility] Blood 02/14/2022 3:18 PM EST 02/14/2022 3:21 PM EST Irina Mcneil NP LAB BLOOD BKR ORDERABLES Final Result Performing Organization Address City/[facility] [address]/ZIP Co de Phone Number [address] [address] documented in this encounter Visit Diagnoses Diagnosis Alcohol-induced acute pancreatitis, unspecified complication status- Primary Alcohol abuse Nondependent alcohol abuse, unspecified drinking behavior documented in this encounter Care Teams Transit Planning Director Relationship Specialty Start Date End Date Pcp, Unknown PCP - General 09/16/21 12/14/22 Rajesh Phillips NP PCP - General Nurse Practitioner 12/15/22 02/26/23 Rajesh Phillips NP PCP - General Nurse Practitioner 02/27/23 documented as of this encounter Additional Source Comments The information contained in this document represents components of the legal health record. It is not the complete legal health record.[facility]
--- OUTSIDE RECORDS SUMMARY | 2025-01-29 04:07 | XMS_ITS | Clinical Summary ---
Author Organization [employer] Address [address] [facility] 7t [place] [address] Care Team Providers Care Produce Department Manager Name Role Phone Isaiah Mcconnelldulce Unavailable Unavailable Rajesh Phillips NP Primary Care Provider Allergies Active Allergy Reactions Criticality Noted Date Comments Beeswax Unknown 03/17/2022 Hornet Venom 10/07/2019 Medications * This document contains information received from the source organization and may not represent a complete record from that organization. EPINEPHrine (Epipen) 0.3 MG/0.3ML injection syringeIndication s:Allergy to bee sting Inject 0.3 mL (0.3 mg) as directed if needed for anaphylaxis (allergic reaction to insect sting). Call 911 after use. 2 each 1 024 Active sildenafil (Viagra) 100 MG tabletIndications :Erectile dysfunction, unspecified erectile dysfunction type Take 0.5 tablets (50 mg) by mouth if needed each day for erectile dysfunction. /30 days 6 tablet 3 024 Active polycarbophil (FiberCon) 625 MG tabletIndications :Constipation, unspecified constipation type Take 1 tablet (625 mg) by mouth Once per day. 90 tablet 1 025 Active hydrocortisone (Anusol-HC) 25 MG suppositoryIndica tions:Rectal bleeding Insert 1 suppository (25 mg) into the rectum if needed in the morning and at bedtime for hemorrhoids. Use for 7 days. Repeat as needed 14 suppository 1 025 Active betamethasone dipropionate 0.05 % creamIndications: Rash Apply topically if needed in the morning and at bedtime for irritation or rash. 15 g 025 Active atorvastatin (Lipitor) 20 MG tabletIndications :Mixed hyperlipidemia TAKE 1 TABLET BY MOUTH IN THE MORNING 90 tablet 3 Active bisacodyl (Dulcolax) 5 MG EC tablet TAKE 4 TABLETS BY MOUTH NEEDED 30 tablet 1 Active lactulose (Chronulac) 10 GM/15ML solutionIndicatio ns:Constipation, unspecified constipation type Take 15 mL (10 g) by mouth Once per day. 480 mL 5 025 2025 Active gabapentin (Neurontin) 300 MG capsuleIndication s:Alcoholism (CMS/HCC) ([facility]) Take 1 capsule (300 mg) by mouth 3 times daily. 90 capsule 1 025 Active diphenhydrAMINE (BENADryl) 25 MG capsuleIndication s:Insomnia, unspecified type TAKE 1 CAPSULE BY MOUTH IN THE MORNING AND 1 CAPSULE AT BEDTIME NEEDED FOR ALLERGIES 180 capsule Active celecoxib (CeleBREX) 200 MG capsuleIndication s:Arthritis of right shoulder region,Chronic left shoulder pain Take 1 capsule by mouth twice daily 60 capsule Active venlafaxine XR (Effexor XR) 75 MG 24 hr capsuleIndication s:Moderate episode of recurrent major depressive disorder (CMS/HCC) ([facility]) Take 1 capsule (75 mg) by mouth Once per day. 90 capsule 2 025 2025 Active ergocalciferol (Vitamin D2) 1.25 MG (14234 UT) capsuleIndication s:Vitamin D deficiency Take 1 capsule (1.25 mg) by mouth every 7 (seven) days. 12 capsule 2 025 2025 Active acetaminophen (EQ 8HR Arthritis Pain Relief) 650 MG ER tabletIndications :Chronic midline low back pain without sciatica Take 1 tablet (650 mg) by mouth every 8 (eight) hours if needed for mild pain. 270 tablet 2 025 2025 Active venlafaxine XR (Effexor XR) 75 MG 24 hr capsuleIndication s:Moderate episode of recurrent major depressive disorder (CMS/HCC) ([facility]) Take 1 capsule (75 mg) by mouth Once per day. Do not crush or chew. 90 capsule 1 024 2024 Discontinued acetaminophen (EQ 8HR Arthritis Pain Relief) 650 MG ER tabletIndications :Chronic midline low back pain without sciatica Take 1 tablet (650 mg) by mouth every 8 (eight) hours if needed for mild pain. Do not crush, chew, or split. 180 tablet 025 2024 Discontinued ergocalciferol (Vitamin D2) 1.25 MG (86290 UT) capsuleIndication s:Vitamin D deficiency Take 1 capsule by mouth once a week 12 capsule 025 2024 Discontinued celecoxib (CeleBREX) 200 MG capsuleIndication s:Arthritis of right shoulder region,Chronic left shoulder pain Take 1 capsule by mouth twice daily 60 capsule 025 2024 Discontinued Active Problems Problem Noted Date Diagnosed Date Rotator cuff tear, right 10/09/2024 Tick bite of left back wall of thorax 07/16/2024 Rash 07/16/2024 Chronic midline low back pain without sciatica 0 05/01/2024 Vitamin D deficiency 05/01/2024 Allergies 12/11/2023 Assessment & Plan (12/11/2023 9:04 PM EDT): Pt reports NO current respiratory or other symptoms consistent with mold exposure/allergies but does have other significant allergies such as insect venom and 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 Encouraged to have home area inspected for presence of mold and remediation methods - give lack of any severe current mold allergy symptoms being reported after reported 8 years in the home, explained best to address the environment at the same time having his allergies evaluated. Bryson agrees to plan and will discuss with oliving machine operator of the home/his girlfriend. No other questions or concerns at visit conclusion. Allergy to bee sting 11/07/2023 Alcohol use 03/17/2022 Overview (03/17/2022): 4 drinks per day, mix of beer and shots. Not interested in MAT. Encouraged to quit. History of pancreatitis r/t EtoH 03/14/2022 Overview (03/14/2022): Followed by GI Smoker 03/01/2022 Overview (03/17/2022): Smoked 1ppd for 30 years, now reduced to 5 cigs per day. Encouraged to quit. Moderate episode of recurren t major depressive disorder (CMS/HCC) 03/01/2022 Overview (07/31/2022): Since he had no improvement on laxapro he was started on wellbutrin. 06/2022 wellbutrin was discontinued due to negative side effects and pt was started on venlafaxine. He declines referral. Denies manic sx. Per pt has good support system. Not working currently. Recommended engaging in enjoyable activities, reduce stress, exercise. Mixed hyperlipidemia 03/01/2022 Overview (03/14/2022): Lipid panel 10/2021 tot chol 257, trig 177, LDL 184, HDL 38. ASCD risk 9.4% and recommended to be on statin. Started on atorvastatin. No results found for: CHOL No results found for: HDL No results found for: LDLCALC No results found for: TRIG No results found for: CHOLHDL Fatty liver 03/01/2022 Overview (04/27/2022): Slight elevation in LFTs 03/2022. UL consistent with fatty infiltrate. Recommended reducing alcohol use and limit fatty foods Decreased hearing of both ears 03/01/2022 Encounters Date Type Department Care Team Description 01/15/2025 Refill [facility] [address] [address] Lillian Guzman MD Vitamin D deficiency (Primary Dx) 01/15/2025 Refill [facility] [address] [address] Rajesh Phillips NP Moderate episode of recurrent major depressive disorder (CMS/HCC) (HCC) (Primary Dx); Chronic midline low back pain without sciatica 01/12/2025 Refill [facility] [address] [address] Siomara Philip FNP Arthritis of right shoulder region; Chronic left shoulder pain 12/24/2024 Refill [facility] [address] [address] Rajesh Phillips NP Insomnia, unspecified type 12/18/[address] [address] Rajesh Phillips NP Arthritis of right shoulder region; Chronic left shoulder pain 11/27/[address] [address] Rajesh Phillips NP Chronic left shoulder pain (Primary Dx); Arthritis of right shoulder region 11/25/2024 11:00 AM EDT Office Visit [address] [address] Rajesh Phillips NP Bilateral inguinal hernia without obstruction or gangrene, recurrence not specified (Primary Dx); Urinary frequency; Fatty liver; Smoker; Exercise intolerance 11/24/2024 Telephone [facility] [address] [place] [address] Rajesh Phillips NP additional family history 11/24/2024 Telephone [facility] [address] [place] [address] Rajesh Phillips NP PT-1 11/20/[address] [address] Rajesh Phillips NP Arthritis of right shoulder region; Chronic left shoulder pain 11/18/[address] [address] Rajesh Phillips NP Alcoholism ([facility]) (Primary Dx) 11/11/[address] [address] Rajesh Phillips NP Vitamin D deficiency (Primary Dx) 11/04/2024 Telephone [facility] [address] [place] [address] Rajesh Phillips NP PT1 10/30/2024 Telephone [facility] [address] [place] [address] Rajesh Phillips NP review medications for possible surgery 10/29/2024 Telephone [facility] [address] [place] [address] Rajesh Phillips NP PT-1 [facility] Care from Last 3 Months Immunizations Immunization Administration Dates Next Due Hep A, Adult 06/02/2024,10/25/2023 Hep B, adult 06/02/2024,11/22/2023,10/25/2023 INFLUENZA INJECTABLE QUADRIV ALANT CCIIV4 MDCK Multi-dose vial 01/05/2023 Influenza, IIV3, injectable 12/30/2021 Moderna Covid-19 Vaccine 12+ 01/05/2023 Pfizer Covid-19 Vaccine + 09/30/2020 TD (adult), 2 Lf tetanus tox oid, preservative free, adsorbed 01/01/2004 Tdap 10/21/2021 Family History Medical History Relation Name Comments CKD on dialysis Brother Diabetes Brother Vasculitis Brother Alcohol abuse Father Heart attack Father Diabetes Maternal Grandfather Breast cancer Mother COPD Mother Diabetes Son Relation Name Status Comments Brother Father Dad at age 62 form [place]. He was an overweight smoker Maternal Grandfather Mother Alive Son Social History Tobacco Use Types Packs/Day Years Used Date Smoking Tobacco: Every Day Cigarettes 1 15 Passive Smoke Exposure: Current Smokeless Tobacco: Never Tobacco Cessation:Ready to Q uit: No; Counseling Given: Not Answered Alcohol Use Standard Drinks/Week Comments Not Currently 8 (1 standard drink = 0.6 oz pur e alcohol) Not since February Alcohol Answer Date Recorded How often do you have a drink containing alcohol ? 0 09/23/2024 How many drinks containing a lcohol do you have on a typical day when you are drinking? 0 09/23/2024 How often do you have six or more drinks on one occasion? 0 09/23/2024 Depression Answer Date Recorded Patient Health Questionnaire-9 Score 8 02/14/2023 Patient Health Questionnaire-9 Score 8 02/14/2023 Last PHQ-9: Questionnaire Data Not on file 1 04/17/2022 Housing Stability Answer Date Recorded What is your housing situation today? I have lonny sibley 07/16/[address] you li ve. Do you have problems with any of the following? None of the above 07/16/2024 Food Insecurity Answer Date Recorded Within the past 12 months, y ou worried that your food would run out before you got money to buy more: Never True 07/16/2024 Within the past 12 months,th e food you bought just didn't last and you didn't have enough money to get more: Never True 09/2024 Transportation Answer Date Recorded In the past 12 months, has l ack of transportation kept you from medical appts, meetings, work or from getting things needed for daily living? No 07/16/2024 Utilities Answer Date Recorded In the past 12 months, has t he electric, gas, oil or water company threatened to shut off services in your home? No 10/25/2023 Depression Answer Date Recorded Patient Health Questionnaire-2 Score 1 09/23/2024 Internet Access Answer Date Recorded Internet Access Q1 Yes 11/09/2023 Internet Access Q2 Not on file 11/09/2023 Education Answer Date Recorded What is the highest level of school you have completed or the highest degree you have received? GED or equivalent 09/2024 Sex and Gender Information Value Date Recorded Sex Assigned at Male 03/16/2022 8:45 AM EST Legal Sex Male 8:39 PM EDT Gender Identity Male 03/16/2022 8:45 AM EST Sexual Orientation Don't know 04/26/2022 8: 31 AM EST Last Filed Vital Signs Vital Sign Reading Time Taken Comments Blood Pressure 138/86 11/25/2024 10:35 AM EDT Pulse 86 11/25/2024 10:35 AM EDT Temperature 37.1 C (98.7 F) 11/25/2024 10:35 AM EDT Respiratory Rate 20 05/01/2024 2:28 PM EST Oxygen Saturation 99% 11/25/2024 10:35 AM EDT Inhaled Oxygen Concentration - - Weight 83.5 kg (184 lb) 11/25/2024 10:35 AM EDT Height 167.6 cm (5' 6 ) 07/16/2024 2:42 PM EDT Body Mass Index 29.7 07/16/2024 2:42 PM EDT Plan of Treatment Upcoming Encounters Date Type Department Care Team (Late st Contact Info) Description 02/09/2025 2:00 PM EST Office Visit [facility] [address] [place] [address] Rajesh Phillips NP [address] [place] [address] Health Maintenance Due Date Last Done Comments CT Colonography 1975 FIT DNA/Cologuard 1975 FIT 1975 FOBT 1975 Sigmoidoscopy 1975 Pneumococcal Vaccine: Pediatrics (0 to 5 Years) and At-Risk Patients (6 to 49) Years (1 of 2 - PCV) 12/02/1994 COVID-19 Vaccine ( - 2024-2 6 season) 2024 01/05/2023, 09/30/2020, 09/06/2020 Influenza Vaccine (#1) 2024 , 12/30/2021 Disability Screening 01/30/2025 01/31/2024 Family Planning (PISQ) 07/16/2025 07/16/2024 SDOH Screening 07/16/2025 07/16/2024 Alcohol/Substance Use Screening 09/23/2025 09/23/2024 Depression Screening 09/23/2025 09/23/2024, 02/14/2023 Tobacco Screening 09/23/2025 09/23/2024 Zoster Vaccines (1 of 2) 12/02/2025 Lipid Panel 01/11/2028 01/10/2023, 03/17/2022, 10/28/2021 DTaP/Tdap/Td Vaccines (2 - T d or Tdap) 10/22/2031 10/21/2021, 01/01/2004 Colonoscopy 02/27/2034 02/28/2024 Colorectal Cancer Screening 02/27/2034 RSV Patients and Patients Aged 60 years or older (1 - 1-dose 75+ series) 12/02/2050 HIV Screening Completed 03/17/2022 Hepatitis C Screening Completed 03/17/2022 Hepatitis A Vaccines Completed 06/02/2024, 10/25/2023 Hepatitis B Vaccines Completed 06/02/2024, 11/22/2023, 10/25/2023 HIB Vaccines Aged Out No longer eligi ble based on patient's age to complete this topic HPV Vaccines Aged Out No longer eligi ble based on patient's age to complete this topic IPV Vaccines Aged Out No longer eligi ble based on patient's age to complete this topic Meningococcal B Vaccine Aged Out No l onger eligible based on patient's age to complete this topic Meningococcal Vaccine Aged Out No juan piedad eligible based on patient's age to complete this topic RSV under 20 months Aged Out No longe r eligible based on patient's age to complete this topic Rotavirus Vaccines Aged Out No longer eligible based on patient's age to complete this topic Procedures Procedure Name Priority Date/Time Associated Diagnosis Comments AMB REFERRAL TO GENERAL SURGERY Routine 11/18/2024 Bilateral inguinal hernia without obstruction or gangrene, recurrence not specified HM COLONOSCOPY Routine 02/28/2024 10:48 AM EST LIPID PANEL, STANDARD Routine 01/10/2023 9:06 AM EDT Mixed hyperlipidemia HEPATITIS C AB W/REFLEX TO HCV QUANT NAAT IF POSITIVE Routine 03/17/2022 9:32 AM EST HIV ANTIBODY/ANTIGEN, 4TH GENERATION Routine 03/17/2022 9:32 AM EST from Last 3 Months or Most Recently Relevant to Health Maintenance Results * Referral to General Surgery (11/18/2024) us Rajesh Phillips NP OUTPATIENT REFERRAL ORDERABL ES Final Result * Colonoscopy (02/28/2024 10:48 AM EST) us Rajesh Phillips NP HEALTH MAINTENANCE Final Res ult * (ABNORMAL) Lipid panel (01/10/2023 9:06 AM EDT) Cholesterol, Total 161 (<200) MG/DL [facility] Triglyceride (mg/dL) in Serum/Plasma 222(H) (<150) MG/DL [facility] Comment:Fasting HDL Cholesterol 28(L) (>39) MG/DL [facility] LDL Cholesterol, Calculated 89 (0-130) MG/DL [facility] Non HDL Chol. (LDL+VLDL) 133 (<160) MG/DL [facility] Comment: Testing performed or reported by [facility], a Service of [facility], [address] [place] [address] Krishan Millan MD, Luggage Liner NAKIA# [id number] Blood Venous blood specimen / Unknown 01/10/2023 9:06 AM EDT 01/10/2023 9:08 AM EDT Rajesh Phillpis [employer]EROCK TOWER LOADER LAB BLOOD ORDERABLES Final R esult Performing Organization Address [facility] Co de Phone Number [address] [address] * HIV ANTIBODY/ANTIGEN, 4TH GENERATION (03/17/2022 9:32 AM EST) Result 4th Gen HIV Antibody Antigen NEGATIVE (NEG) [facility] Comment: Negative for antibodies to HIV 1 and HIV 2 and P24 antigen. Reference range: Negative Additional note: Written patient authorization is required for each separate release of this test result. This test was performed on the [employer] Car Changer immunoassay system. Testing performed or reported by [facility], a Service of [facility], [address] [place] [id number] Krishan Millan MD, Luggage Liner MIRI# [id number] 03/17/2022 9:32 AM EST 03/17/2022 9:33 AM EST Josy Alejo PA-C LAB BLOOD ORDERABLES Final Result Performing Organization Address [facility] Co de Phone Number [facility] [address] [address] * Hepatitis C Antibody w/Reflex HCV Quant PCR (03/17/2022 9:32 AM EST) Hepatitis C Virus Ab, Serum NEGATIVE (NEG) [facility] Comment: Reference range: Negative This test was performed on the Sch[employer]acher Car Changer immunoassay system. Testing performed or reported by [facility], a Service of [facility], [address] [place] [address] Krishan Millan MD, Luggage Liner [facility]# [id number] 03/17/2022 9:32 AM EST 03/17/2022 9:33 AM EST us Josy Alejo PA-C LAB BLOOD ORDERABLES Final Result [facility] [address] [place] [address] from Last 3 Months or Most Recently Relevant to Health Maintenance Insurance [address] [facility] C[facility] * Guarantor: Bryson Henry Account Type Relation to Patient Date of Phone Billing Address Personal/Family Self [address] * Guarantor: Bryson Henry Account Type Relation to Patient Date of Phone Billing Address Personal/Family Self [address] * Guarantor: Bryson Henry Account Type Relation to Patient Date of Phone Billing Address Personal/Family Self [address] Care Teams Produce Department Manager Relationship Specialty Start Date End Date Rajesh Phillips NP [address] [place] [address] PCP - General Internal Medicine 11/30/22 Kelby Mcconnell Community Health Worker Case Management 10/19/22
--- OUTSIDE RECORDS SUMMARY | 2025-01-29 04:07 | XMS_ITS | Encounter Summary ---
Author Organization [facility] Address [address] [place] [address] Phone Care Team Providers Care Solar Installation Supervisor Name Role Phone Rajesh Phillips NP Primary Care Provide r Encounter Details Date Type Department Care Team (Late st Contact Info) Description 03/23/2023 Procedure Pass [facility], [address] [address] Social History Tobacco Use Types Packs/Day Years [...] on filedocumented in this encounter Care Teams Solar Installation Supervisor Relationship Specialty Start Date End Date Rajesh Phillips NP PCP - General Nurse Practitioner 02/27/23 documented as of this encounter Additional Source Comments The information contained in this document represents components of the legal health record. It is not the complete legal health record.[facility]
--- OUTSIDE RECORDS SUMMARY | 2025-01-29 04:07 | XMS_ITS | Encounter Summary ---
Author Organization [facility] Address [address] [facility] [address] [place] [phone] Phone Care Team Providers Care Transportation Inspector Name Role Phone Rajesh Phillips AUTO AIR CONDITIONING APPRENTICE Primary Care Provide r Rajesh Phillips AUTO AIR CONDITIONING APPRENTICE Primary Care Provide r Encounter Details Date Type Department Care Team (Late st Contact Info) Description 01/30/2023 Procedure Pass [facility], [address] [address] Social History Tobacco Use Types Packs/Day Years [...] on filedocumented in this encounter Care Teams Transportation Inspector Relationship Specialty Start Date End Date Rajesh Phillips NP PCP - General Nurse Practitioner 12/15/22 02/26/23 Rajesh Phillips NP PCP - General Nurse Practitioner 02/27/23 documented as of this encounter Additional Source Comments The information contained in this document represents components of the legal health record. It is not the complete legal health record.[facility]
--- OUTSIDE RECORDS SUMMARY | 2025-01-29 04:07 | XMS_ITS | Encounter Summary ---
Author Organization [employer] Address [address] [facility] [address] [place] [address] Care Team Providers Care Software Design Manager Name Role Phone Isaiah Mcconnelldulce Unavailable Unavailable Rajesh Phillips NP Primary Care Provider [phone] Reason for Visit * Reason Comments Med Refill Encounter Details Date Type Department Care Team (Late st Contact Info) Description 11/27/2024 Refill [facility] [address] [place] [address] Rajesh Phillips NP [address] [place] [address] Chronic left shoulder pain (Primary Dx); Arthritis of right shoulder region Social History Tobacco Use Types Packs/Day Years Used Date Smoking Tobacco: Every Day Cigarettes 1 15 Passive Smoke Exposure: Current Smokeless Tobacco: Never Alcohol Use Standard Drinks/Week [...] Description 02/09/2025 2:00 PM EST Office Visit [facility] [address] [place] [address] Rajesh Phillips NP [address] [place] [address] documented as of this encounter Visit Diagnoses Diagnosis Chronic left shoulder pain- Primary Pain in joint, shoulder region Arthritis of right shoulder region documented in this encounter Additional Health Concerns Assessment Noted Time PHQ-9 Depression Total Score: 8 02/15/20 23 3:56 PM EST documented as of this encounter Care Teams Software Design Manager Relationship Specialty Start Date End Date Rajesh Phillips NP [address] [place] [address] PCP - General Internal Medicine 11/30/22 Kelby Mcconnell Community Health Worker Case Management 10/19/22 documented as of this encounter
--- OUTSIDE RECORDS SUMMARY | 2025-01-29 04:07 | XMS_ITS | Encounter Summary ---
Author Organization [facility] Address [address] [facility] [address] [place] [address] Phone Care Team Providers Care Screw Machine Hand Name Role Phone Rajesh Phillips NP Primary Care Provide r Rajesh Phillips NP Primary Care Provide r Reason for Referral * MRI/CAT Scan - Closed Specialty Diagnoses / Procedures Referred By Kailash salcido Referred To Contact Radiology Diagnoses History of traumatic head injury Cognitive impairment Procedures MRI Brain Rajesh Phillips NP Phone: tel: fax: Referral ID Status Reason Start Date Expiration Date Visits Re quested Visits Authorized [id number] Closed 01/30/2023 1 1 Encounter Details Date Type Department Care Team (Late st Contact Info) Description 01/30/2023 Transcribe Orders Virtual Department 30 [place] [address] Rajesh Phillips NP 70 [place] [address] History of traumatic head injury (Primary Dx); Cognitive impairment Social History Tobacco Use Types Packs/Day Years [...] documented as of this encounter Results * MRI BRAIN WITHOUT CONTRAST (02/22/2023 2:10 PM EST) Anatomical Region Laterality Modality Head Magnetic Resonan ce 02/23/2023 6:00 AM EST Impressions 02/25/2023 7:00 AM EST No intracranial cause for the reported symptoms identified. No MRI evidence of prior traumatic brain injury. Narrative 02/25/2023 7:00 AM EST MRI BRAIN WITHOUT CONTRAST Referring clinician's provided indication for this examination in [facility]: Outside Radiology Order; History of traumatic head injury/ Cognitive impairment TECHNIQUE: MRI BRAIN WITHOUT CONTRAST Multi-sequence, multi-planar MRI of the brain was performed without intravenous contrast. COMPARISON: None FINDINGS: Brain Parenchyma: Normal. No evidence of acute infarct, mass lesion, or hemorrhage. Ventricular System and Extra-Axial Spaces: Normal. No evidence of midline shift or hydrocephalus. Extracranial Structures: Arterial flow voids in the skull base are present. Procedure Note Edgardo Jaeger MD - 02/25/2023 MRI BRAIN WITHOUT CONTRAST Referring clinician's provided indication for this examination in [facility]:Outside Radiology Order; History of traumatic head injury/ Cognitiveimpairment TECHNIQUE: MRI BRAIN WITHOUT CONTRAST Multi-sequence, multi-planar MRI of the brain was performed withoutintravenous contrast. COMPARISON: None FINDINGS: Brain Parenchyma: Normal. No evidence of acute infarct, mass lesion, orhemorrhage. Ventricular System and Extra-Axial Spaces: Normal. No evidence of midlineshift or hydrocephalus. Extracranial Structures: Arterial flow voids in the skull base arepresent. IMPRESSION: No intracranial cause for the reported symptoms identified. No MRIevidence of prior traumatic brain injury. Rajesh Phillips VIRTUALIZATION ARCHITECT IMG MR HEAD/NECK Natalee l Result documented in this encounter Visit Diagnoses Diagnosis History of traumatic head injury- Primary Cognitive impairment Unspecified persistent mental disorders due to conditions classified elsewhere History of traumatic head injury Cognitive impairment Unspecified persistent mental disorders due to conditions classified elsewhere documented in this encounter Care Teams Screw Machine Hand Relationship Specialty Start Date End Date Rajesh Phillips NP PCP - General Nurse Practitioner 12/15/22 02/26/23 Rajesh Phillips NP PCP - General Nurse Practitioner 02/27/23 documented as of this encounter Additional Source Comments The information contained in this document represents components of the legal health record. It is not the complete legal health record.[facility]
--- OUTSIDE RECORDS SUMMARY | 2025-01-29 04:07 | XMS_ITS | Encounter Summary ---
Author Organization [employer] Address [address] [place] [address] 7t [place] [address] Care Team Providers Care Choir Member Name Role Phone Kelby Mcconnell Unavailable Unavailable Rajesh Phillips NP Primary Care Provider [phone] Reason for Visit * Reason Onset Date Comments Med Refill 02/04/2024 Encounter Details Date Type Department Care Team (Late st Contact Info) Description 02/04/2024 Refill Katharine [facility] [address] [place] [address] Rajesh Phillips, DRE [address] [place] [address] Social History Tobacco Use Types Packs/Day Years [...] 02/09/2025 2:00 PM EST Office Visit Katharine [facility] [address] [place] [address] Rajesh Phillips NP 70 [place] [address] documented as of this encounter Visit Diagnoses Not on filedocumented in this encounter Additional Health Concerns Assessment Noted Time PHQ-9 Depression Total Score: 8 02/15/20 23 3:56 PM EST documented as of this encounter Care Teams Choir Member Relationship Specialty Start Date End Date Rajesh Phillips NP 70 [place] [address] PCP - General Internal Medicine 11/30/22 Kelby Mcconnell Community Health Worker Case Management 10/19/22 documented as of this encounter
--- OUTSIDE RECORDS SUMMARY | 2025-01-29 04:07 | XMS_ITS | Encounter Summary ---
Author Organization [employer] Address [address] [facility] 7t [place] [address] Care Team Providers Care Treatment Specialist Name Role Phone Enedina Jarvischrisdulce Unavailable Unavailable Rajesh Phillips NP Primary Care Provider [phone] Reason for Visit * Reason Onset Date Comments PT-1 12/19/2023 Encounter Details Date Type Department Care Team (Late st Contact Info) Description 12/19/2023 Telephone [facility] [address] [place] [address] Rajesh Phillips NP 70 [place] [address] PT-1 Social History Tobacco Use Types Packs/Day Years [...] * Telephone Encounter - SHAMEKA Roche - 12/20/2023 3:58 PM EDT PT-1 request is submitted- [facility] Request Number [id number] is Authorized PT-1 request is submitted- [facility] PT-1 Request Number [id number] is Authorized PT-1 request is submitted- [facility]-1 Request Number [id number] is Authorized Pt already has an active PT-[address] that I processed on 12/18/23. Exp 12/17/2024. * Telephone Encounter - Sasha Jones - 12/19/2023 11:09 AM EDT 1-5 Pt-1 Request/Renewal: Letter from [employer] Name of Treating Provider/Treating Facility: [facility] Address of Treating Facility: [address] [place] [id number] Number of Visits Requested: N/A Patient's Physical Address: [address] [place] [address]. [place] [address] Date of Expiration: 2-5 Pt-1 Request/Renewal: Letter from [facility] Name of Treating Provider/Treating Facility: [facility] Address of Treating Facility: [address] [place] [address] Number of Visits Requested: N/A Patient's Physical Address: [address] [place] Date of Expiration: 01/10/2024 3-5 Pt-1 Request/Renewal: Letter from [facility] Name of Treating Provider/Treating Facility: [facility] Address of Treating Facility: [address] [place] [address] Number of Visits Requested: N/A Patient's Physical Address: [address] [place] Date of Expiration: 01/10/2024 4-5 Pt-1 Request/Renewal: Letter from [facility] Name of Treating Provider/Treating Facility: [facility] Address of Treating Facility: [address] [place] [address] Number of Visits Requested: N/A Patient's Physical Address: [address] [place] Date of Expiration: 01/10/2024 5-5 Pt-1 Request/Renewal: Letter from [facility] Name of Treating Provider/Treating Facility: [facility] Address of Treating Facility: [address] [place] [address] Number of Visits Requested: N/A Patient's Physical Address: [address] [place], [place] Date of Expiration: 01/10/2024 documented in this encounter Plan of Treatment Upcoming Encounters Date Type Department Care Team (Late st Contact Info) Description 02/09/2025 2:00 PM EST Office Visit [facility]arine [facility] [address] [place] [address] Rajesh Phillips NP 70 [facility] [place] [address] documented as of this encounter Visit Diagnoses Not on filedocumented in this encounter Additional Health Concerns Assessment Noted Time PHQ-9 Depression Total Score: 8 02/15/20 23 3:56 PM EST documented as of this encounter Care Teams Treatment Specialist Relationship Specialty Start Date End Date Rajesh Phillips NP [address] [place] [address] PCP - General Internal Medicine 11/30/22 Kelby Mcconnell Community Health Worker Case Management 10/19/22 documented as of this encounter
--- OUTSIDE RECORDS SUMMARY | 2025-01-29 04:07 | XMS_ITS | Encounter Summary ---
Author Organization [employer] Address [address] [place] [address] 7t [place] [address] Care Team Providers Care International Trade Manager Name Role Phone Kelby Mcconnell Unavailable Unavailable Rajesh Phillips NP Primary Care Provider [phone] Reason for Visit * Reason Onset Date Comments Med Refill 01/20/2024 Encounter Details Date Type Department Care Team (Late st Contact Info) Description 01/20/2024 Refill Katharine [facility] [address] [place] [address] Rajesh Phillips NP [address] [place] [address] Erectile dysfunction, unspecified erectile dysfunction type Social [...] encounter Miscellaneous Notes * Telephone Encounter - Rika Urena MD - 01/21/2024 1:33 PM EST Approving, but needs appt for additional refills. * Telephone Encounter - Temo Zavala CMA - 01/21/2024 9:51 AM EST Last o/v: 12/11/2023 Next o/v: 3 mo. F/u recommended from o/v with [facility] 2023, will be due 03/03/2024 Assigned to covering provider for approval and sending. documented in this encounter Plan of Treatment Upcoming Encounters Date Type Department Care Team (Late st Contact Info) Description 02/09/2025 2:00 PM EST Office Visit [facility] [address] [place] [address] Rajesh Phillips NP [address] [place] [address] documented as of this encounter Visit Diagnoses Diagnosis Erectile dysfunction, unspecified erectile dysfunction type documented in this encounter Additional Health Concerns Assessment Noted Time PHQ-9 Depression Total Score: 8 02/15/20 23 3:56 PM EST documented as of this encounter Care Teams International Trade Manager Relationship Specialty Start Date End Date Rajesh Phillips NP [address] [place] [address] PCP - General Internal Medicine 11/30/22 Kelby cMconnell Community Health Worker Case Management 10/19/22 documented as of this encounter
--- OUTSIDE RECORDS SUMMARY | 2025-01-29 04:07 | XMS_ITS | Encounter Summary ---
Author Organization [employer] Address [address] [facility] 7t [place] [address] Care Team Providers Care Medical And Scientific Illustrator Name Role Phone Enedina Jarvischrisdulce Unavailable Unavailable Rajesh Phillips NP Primary Care Provider Reason for Visit * Reason Onset Date Comments Sanjeev Fernandez 12/05/2023 Request For Order(s) 12/05/2023 Encounter Details Date Type Department Care Team (Late st Contact Info) Description 12/05/2023 Telephone [facility] [address] [place] [address] Rajesh Phillips, DRE [address] [place] [address] Sanjeev Fernandez; Request For Order(s) Social History Tobacco Use Types Packs/Day Years [...] is your housing situation today? I have lonnyoctavia sibley 10/25/[address] you [...] encounter Miscellaneous Notes * Telephone Encounter - Sonal Rios LPN - 12/05/2023 12:41 PM EDT Telehealth scheduled to discuss black mold and possible testing. Pt also reports he had blood drawn yesterday at [facility]. Pt does not think that they had all the ordersthat JL placed. Call placed to [facility] outpatient lab. Spoke with Cindi. She reports the only order they have in their system ist he PSA. Call placed to pt. He will go to the lab at [place] this afternoon to have the rest of the labs drawn. * Telephone Encounter - Valencia Molina - 12/05/2023 12:26 PM EDT Patient called please call back * Telephone Encounter - Madelin Hagen LPN - 12/05/2023 12:20 PM EDT Call placed to patient. LMOM to return call. * Telephone Encounter - Sasha Jones - 12/05/2023 11:54 AM EDT Patient calling with concerns about black mold, stating it is in the house they are living in and is unsure if they need a blood test of some kind. documented in this encounter Plan of Treatment Upcoming Encounters Date Type Department Care Team (Late st Contact Info) Description 02/09/2025 2:00 PM EST Office Visit Katharine [facility] [address] [place] [address] Rajesh Phillips NP 70 [facility] [place] [address] documented as of this encounter Visit Diagnoses Not on filedocumented in this encounter Additional Health Concerns Assessment Noted Time PHQ-9 Depression Total Score: 8 02/15/20 23 3:56 PM EST documented as of this encounter Care Teams Medical And Scientific Illustrator Relationship Specialty Start Date End Date Rajesh Phillips NP 70 [facility] [place] [address] PCP - General Internal Medicine 11/30/22 Kelby Mcconnell Community Health Worker Case Management 10/19/22 documented as of this encounter
--- OUTSIDE RECORDS SUMMARY | 2025-01-29 04:08 | XMS_ITS | Encounter Summary ---
Author Organization [employer] Address [address] [place] [address] 7t [place] [address] Care Team Providers Care Solid Center Winder Name Role Phone Kelby Mcconnell Unavailable Unavailable Rajesh Phillips NP Primary Care Provider Encounter Details Date Type Department Care Team (Late st Contact Info) Description 02/27/2023 Orders Only [facility] [address] [place] [address] Rajesh Phillips NP [address] [place] [address] Social History Tobacco Use Types Packs/Day Years Used Date Smoking Tobacco: Every Day Cigarettes 1 15 Alcohol Use Standard Drinks/Week Comments Yes 8 (1 standard drink = 0.6 oz pur e alcohol) Depression Answer Date Recorded Patient Health Questionnaire-9 Score 8 02/14/2023 Patient Health Questionnaire-9 Score 8 02/14/2023 Last PHQ-9: Questionnaire Data Not on file 1 04/17/2022 Depression Answer Date Recorded Patient Health Questionnaire-2 Score 4 02/14/2023 Sex and Gender Information Value Date Recorded Sex Assigned at Male 03/16/2022 8:45 AM EST Legal Sex Male 8:39 PM EDT Gender Identity Male 03/16/2022 8:45 AM EST Sexual Orientation Don't know 04/26/2022 8: 31 AM EST documented as of this encounter Plan of Treatment Upcoming Encounters Date Type Department Care Team (Late st Contact Info) Description 02/09/2025 2:00 PM EST Office Visit [place] [facility] [address] [place] [address] Rajesh Phillips NP [address] [place] [address] documented as of this encounter Procedures Procedure Name Priority Date/Time Associated Diagnosis Comments CBC WITH AUTO DIFFERENTIAL Routine 02/27/2023 documented in this encounter Results * CBC auto differential (02/27/2023) Blood Venous blood specimen / Unknown Rajesh Phillips NP LAB BLOOD ORDERABLES Edited Result - Final documented in this encounter Visit Diagnoses Not on filedocumented in this encounter Additional Health Concerns Assessment Noted Time PHQ-9 Depression Total Score: 8 02/15/20 23 3:56 PM EST documented as of this encounter Care Teams Solid Center Winder Relationship Specialty Start Date End Date Rajesh Phillips NP [address] [place] [address] PCP - General Internal Medicine 11/30/22 Kelby Mcconnell Community Health Worker Case Management 10/19/22 documented as of this encounter
--- OUTSIDE RECORDS SUMMARY | 2025-01-29 04:08 | XMS_ITS | Encounter Summary ---
Author Organization [facility] Address [address] [place] [address] Phone Care Team Providers Care Senior Commercial Loan Officer Name Role Phone Rajesh Phillips NP Primary Care Provide r Encounter Details Date Type Department Care Team ([facility] st Contact Info) Description 02/28/2024 Procedure Pass [facility] Admitting Dept Virtual Department [address] [place] [address] Social History Tobacco Use Types Packs/Day Years [...] as food, clothing, or medical care? No 02/28/2024 In the past 12 months have y ou been in a relationship with a person who hurts, threatens, or tries to control you? No 02/28/2024 Are you denied basic needs s uch as food, clothing, or medical care? No 02/28/2024 In the past 12 months have y ou been in a relationship with a person who hurts, threatens, or tries to control you? No 02/28/2024 Sex and Gender Information Value Date Recorded Sex Assigned at Male 10/07/2019 7:57 AM EDT Legal Sex Male 9:27 PM EDT Gender Identity Male 10/07/2019 7:57 AM EDT Sexual Orientation Straight 10/07/2019 7: 57 AM EDT documented as of this encounter Plan of Treatment Not on file documented as of this encounter Visit Diagnoses Not on filedocumented in this encounter Care Teams Senior Commercial Loan Officer Relationship Specialty Start Date End Date Rajesh Phillips NP PCP - General Nurse Practitioner 02/27/23 documented as of this encounter Additional Source Comments The information contained in this document represents components of the legal health record. It is not the complete legal health record.[facility]
--- OUTSIDE RECORDS SUMMARY | 2025-01-29 04:08 | XMS_ITS | Encounter Summary ---
Author Organization [facility] Address [address] [place] [address] Phone Care Team Providers Care Radial Saw Operator Name Role Phone Rajesh Phillips NP Primary Care Provide r Encounter Details Date Type Department Care Team ([facility] st Contact Info) Description 12/11/2024 Procedure Pass [place] Admitting Dept - Virtual Department [address] [place] [address] Social History Tobacco Use Types Packs/Day Years Used Date Smoking Tobacco: Every Day Cigarettes 1 26 Started: 01/31/1999 Smokeless Tobacco: Never Comments:Quit 11/14/2024 Alcohol Use Standard Drinks/Week Comments [...] file Not on file Not on file documented as of this encounter Plan of Treatment Not on file documented as of this encounter Visit Diagnoses Not on filedocumented in this encounter Care Teams Radial Saw Operator Relationship Specialty Start Date End Date Rajesh Phillips NP PCP - General Nurse Practitioner 02/27/23 documented as of this encounter Additional Source Comments The information contained in this document represents components of the legal health record. It is not the complete legal health record.[facility]
== END 2025-01-28 16:07 | disposition home or self-care (01) ==
LOC: HO.HSM 15:33
PROVIDERS: PCP Nurse Practitioner Community Health; Visit Provider Psychiatry & Neurology Neurology
DX: R41.3 Other amnesia (principal); G95.9 Disease of spinal cord, unspecified; G62.9 Polyneuropathy, unspecified
CPT/HCPCS: 99204

== ENCOUNTER → 2025-01-28 15:33 | Outpatient (BNVA) | payer MEDICAID, SELFPAY | PROVIDERS: PCP Nurse Practitioner Community Health; Visit Provider Psychiatry & Neurology Neurology | DX: G62.9 Polyneuropathy, unspecified (principal); G95.9 Disease of spinal cord, unspecified; R41.3 Other amnesia | CPT/HCPCS: 99202 ==

== ENCOUNTER 2025-02-25 08:43 | Outpatient (REF) | payer MEDICARE, MEDICAID, SELFPAY ==
--- OUTSIDE RECORDS SUMMARY | 2025-02-25 09:12 | XMS_ITS | Encounter Summary ---
Author Organization [employer] Address [address] [facility] 7t [place] [address] Care Team Providers Care Honey Processor Name Role Phone Enedina Jarvischrisdulce Unavailable Unavailable Rajesh Phillips NP Primary Care Provider [phone] Reason for Visit * Reason Onset Date Comments Sanjeev Fernandez 12/05/2023 Request For Order(s) 12/05/2023 Encounter Details Date Type Department Care Team (Late st Contact Info) Description 12/05/2023 Telephone [facility] [address] [place] [address] Rajesh Phillips, DRE [address] [place] [address] Sanjeev Fernandez; Request For Order(s) Social History [...] reports he had blood drawn yesterday at [facility]. Pt does not think that they had all the ordersthat JL placed. Call placed to [facility] outpatient lab. Spoke with Cindi. She reports the only order they have in their system ist he PSA. Call placed to pt. He will go to the lab at [place] this afternoon to have the rest of [...] documented in this encounter Plan of Treatment Not on file documented as of this encounter Visit Diagnoses Not on filedocumented in this encounter Additional Health Concerns Assessment Noted Time PHQ-9 Depression Total Score: 8 02/15/20 23 3:56 PM EST documented as of this encounter Care Teams Honey Processor Relationship Specialty Start Date End Date Rajesh Phillips NP 70 [facility] [place] [address] PCP - General Internal Medicine 11/30/22 Kelby Mcconnell Community Health Worker Case Management 10/19/22 documented as of this encounter
--- OUTSIDE RECORDS SUMMARY | 2025-02-25 09:12 | XMS_ITS | Encounter Summary ---
Author Organization [employer] Address [address] [facility] 7t [place] [address] Care Team Providers Care Concrete Form Setter Name Role Phone Kelby Mcconnell Unavailable Unavailable Rajesh Phillips NP Primary Care Provider [phone] Reason for Visit * Reason Comments Med Refill Encounter Details Date Type Department Care Team (Late st Contact Info) Description 12/18/2023 Refill Katharine [facility] [address] [place] [address] Rajesh Phillips NP [address] [place] [address] Alcoholism (CMS/HCC); Vitamin D deficiency Social History [...] documented as of this encounter Care Teams Concrete Form Setter Relationship Specialty Start Date End Date Rajesh Phillips NP [address] [place] [address] PCP - General Internal Medicine 11/30/22 Kelby Mcconnell Community Health Worker Case Management 10/19/22 documented as of this encounter
--- OUTSIDE RECORDS SUMMARY | 2025-02-25 09:13 | XMS_ITS | Encounter Summary ---
Author Organization [facility] Address [address] [place] [address] Phone Care Team Providers Care Patient Registrar Name Role Phone Rajesh Phillips SCREENER AND BLENDER Primary Care Provide r Rajesh Phillips SCREENER AND BLENDER Primary Care Provide r Encounter Details Date Type Department Care Team ([facility] Contact Info) Description 01/30/2023 Procedure Pass [facility], [address] [address] Social History Tobacco Use Types Packs/Day Years Used Date Smoking Tobacco: Every Day Cigarettes 1 26.1 Started: 01/31/1999 Smokeless Tobacco: Never Alcohol Use [...] Upcoming Encounters Date Type Department Care Team ([facility] st Contact Info) Description 07/23/2025 9:30 AM EDT Office Visit [facility] [address] [facility] 3rd Floor, [address] [place] [address] Yong Peralta MD [address] [facility], [address] [place] [address] [email or web address] documented as of this encounter Visit Diagnoses Not on filedocumented in this encounter Care Teams Patient Registrar Relationship Specialty Start Date End Date Rajesh Phillips NP PCP - General Nurse Practitioner 12/15/22 02/26/23 Rajesh Phillips NP PCP - General Nurse Practitioner 02/27/23 documented as of this encounter Additional Source Comments The information contained in this document represents components of the legal health record. It is not the complete legal health record.[facility]
--- OUTSIDE RECORDS SUMMARY | 2025-02-25 09:13 | XMS_ITS | Encounter Summary ---
Author Organization [employer] Address [address] [place] [address] 7t [place] [address] Care Team Providers Care Pillowcase Cutter Name Role Phone Kelby Mcconnell Unavailable Unavailable Rajesh Phillips NP Primary Care Provider [phone] Reason for Visit * Reason Onset Date Comments Med Refill 01/20/2024 Encounter Details Date Type Department Care Team (Late st Contact Info) Description 01/20/2024 Refill Katharine [facility] [address] [place] [address] Rajesh Phillips NP [address] [place] [address] Erectile dysfunction, unspecified erectile dysfunction type Social [...] Time PHQ-9 Depression Total Score: 8 02/15/20 3:56 PM EST documented as of this encounter Care Teams Pillowcase Cutter Relationship Specialty Start Date End Date Rajesh Phillips NP [address] [place] [address] PCP - General Internal Medicine 11/30/22 Kelby Mcconnell Community Health Worker Case Management 10/19/22 documented as of this encounter
--- OUTSIDE RECORDS SUMMARY | 2025-02-25 09:13 | XMS_ITS | Encounter Summary ---
Author Organization [employer] Address [address] [facility] 7t [place] [address] Care Team Providers Care Sales Support Coordinator Name Role Phone Kelby Mcconnell Unavailable Unavailable Rajesh Phillips NP Primary Care Provider [phone] Reason for Visit * Reason Comments Med Refill Encounter Details Date Type Department Care Team (Late st Contact Info) Description 01/19/2024 Refill Katharine [facility] MED[facility] [address] [place] [address] Rajesh Phillips NP 70 [place] [address] Erectile dysfunction, unspecified erectile dysfunction type Social [...] documented as of this encounter Care Teams Sales Support Coordinator Relationship Specialty Start Date End Date Rajesh Phillips NP 70 [place] [address] PCP - General Internal Medicine 11/30/22 Kelby Mcconnell Community Health Worker Case Management 10/19/22 documented as of this encounter
--- OUTSIDE RECORDS SUMMARY | 2025-02-25 09:13 | XMS_ITS | Encounter Summary ---
Author Organization [employer] Address [address] [facility] 7t [place] [address] Care Team Providers Care Dermatology Specialist Name Role Phone Kelby Mcconnell Unavailable Unavailable Rajesh Phillips NP Primary Care Provider Encounter Details Date Type Department Care Team (Late st Contact Info) Description 03/03/2024 Orders Only [facility] [address] [place] [address] Rajesh Phillips NP 70 [place] [address] Social History Tobacco Use Types Packs/Day Years [...] on file documented as of this encounter Procedures Procedure [...] documented as of this encounter Care Teams Dermatology Specialist Relationship Specialty Start Date End Date Rajesh Phillips NP 70 [place] [address] PCP - General Internal Medicine 11/30/22 Kelby Mcconnell Community Health Worker Case Management 10/19/22 documented as of this encounter
--- OUTSIDE RECORDS SUMMARY | 2025-02-25 09:13 | XMS_ITS | Encounter Summary ---
Author Organization [employer] Address 75 [facility] 7t [place] [address] Care Team Providers Care Blood Typer Name Role Phone Kelby Mcconnell Unavailable Unavailable Rajesh Phillips NP Primary Care Provider Encounter Details Date Type Department Care Team (Late st Contact Info) Description 03/18/2024 Orders Only [facility] [address] [place] [address] Rajesh Phillips NP 70 [place] [address] Social History Tobacco Use Types Packs/Day Years [...] documented as of this encounter Care Teams Blood Typer Relationship Specialty Start Date End Date Rajesh Phillips NP 70 [place] [address] PCP - General Internal Medicine 11/30/22 Kelby Mcconnell Community Health Worker Case Management 10/19/22 documented as of this encounter
--- OUTSIDE RECORDS SUMMARY | 2025-02-25 09:13 | XMS_ITS | Encounter Summary ---
Author Organization [facility] Address [address] [place] [address] Phone Care Team Providers Care Performing Artist Name Role Phone Rajesh Phillips THERMOSTATIC CONTROLS SUPERVISOR Primary Care Provide r Encounter Details Date Type Department Care Team (Latest Contact Info) Description 10/25/2023 Transcribe Orders Virtual Department 30 [place] [address] Rajesh Phillips, DRE [address] [place] [address] Back pain with radiculopathy (Primary Dx) Social [...] Care Team (Late st Contact Info) Description 07/23/2025 9:30 AM EDT Office Visit [facility] [address] [place] [address] 3rd Floor, [address] [place] [address] Yong Peralta MD [address] [place] [address] [email or web address] documented as of this encounter Results * [...] or malalignment. Lower lumbar facetarthropathy. Rajesh Phillips THERMOSTATIC CONTROLS SUPERVISOR IMG XR SPINE Final Result documented in this encounter Visit Diagnoses Diagnosis Back pain with radiculopathy- Primary Back pain with radiculopathy documented in this encounter Care Teams Performing Artist Relationship Specialty Start Date End Date Rajesh Phillips NP PCP - General Nurse Practitioner 02/27/23 documented as of this encounter Additional Source Comments The information contained in this document represents components of the legal health record. It is not the complete legal health record.[facility]
--- OUTSIDE RECORDS SUMMARY | 2025-02-25 09:13 | XMS_ITS | Encounter Summary ---
Author Organization [employer] Address 75 [facility] 7t [place] [address] Care Team Providers Care Rock Splitter Name Role Phone Enedina Jarvischrisdulce Unavailable Unavailable Rajesh Phillips NP Primary Care Provider [phone] Reason for Visit * Reason Onset Date Comments PT-1 12/19/2023 Encounter Details Date Type Department Care Team (Late st Contact Info) Description 12/19/[address] [facility] MEDICAL [address] [place] [address] Rajesh Phillips NP 70 [place] [address] PT-1 Social History Tobacco Use Types Packs/Day [...] [facility] PT-1 Request Number [id number] is Authorized PT-1 request is submitted- [facility] PT-1 Request Number [id number] is Authorized PT-1 request is submitted- [facility] PT-1 Request Number [id number] is Authorized Pt already has an active PT-[address] that I processed on 12/18/23. Exp 12/17/2024. * Telephone Encounter - Sasha Jones - 12/19/2023 11:09 AM EDT 1-5 Pt-1 Request/Renewal: Letter from [employer] Name of Treating Provider/Treating Facility: [facility] Address of Treating Facility: [address] [place] [address] Number of Visits Requested: N/A Patient's Physical Address: [address] [place] [address]. [place] [address] Date of Expiration: 2-5 Pt-1 Request/Renewal: Letter from [facility] Name of Treating Provider/Treating Facility: [facility] Address of Treating Facility: [address] [place] [address] Number of Visits Requested: N/A Patient's Physical Address: [address] [place] Date of Expiration: 01/10/2024 3-5 Pt-1 Request/Renewal: Letter from [facility] Name of Treating Provider/Treating Facility: [facility] Address of Treating Facility: [address] [place] [phone] Number of Visits Requested: N/A Patient's Physical Address: [address] [place] Date of Expiration: 01/10/2024 4-5 Pt-1 Request/Renewal: Letter from [facility] Name of Treating Provider/Treating Facility: [facility] Address of Treating Facility: [address] [place] [address] Number of Visits Requested: N/A Patient's Physical Address: [address] [place], [place] Date of Expiration: 01/10/2024 5-5 Pt-1 Request/Renewal: Letter from [facility] Name of Treating Provider/Treating Facility: [facility] Address of Treating Facility: [address] [place] [address] Number of Visits Requested: N/A Patient's Physical Address: [address] [place], [place] Date of Expiration: 01/10/2024 documented in this encounter Plan of Treatment Not on file documented as of this encounter Visit Diagnoses Not on filedocumented in this encounter Additional Health Concerns Assessment Noted Time PHQ-9 Depression Total Score: 8 02/15/20 23 3:56 PM EST documented as of this encounter Care Teams Rock Splitter Relationship Specialty Start Date End Date Rajesh Phillips NP [address] [facility] [place] [address] PCP - General Internal Medicine 11/30/22 Kelby Mcconnell Community Health Worker Case Management 10/19/22 documented as of this encounter
--- OUTSIDE RECORDS SUMMARY | 2025-02-25 09:13 | XMS_ITS | Encounter Summary ---
Author Organization [employer] Address [address] [place] [address] 7t [place] [address] Care Team Providers Care Information Systems Operator Name Role Phone Kelby Mcconnell Unavailable Unavailable Rajesh Phillips NP Primary Care Provider [phone] Reason for Visit * Reason Onset Date Comments Med Refill 02/04/2024 Encounter Details Date Type Department Care Team (Late st Contact Info) Description 02/04/2024 Refill Katharine [facility] MEDICAL 70 [place] [address] Rajesh Phillips, DRE [address] [place] [address] Social History Tobacco Use Types Packs/Day Years [...] documented as of this encounter Care Teams Information Systems Operator Relationship Specialty Start Date End Date Rajesh Phillips NP 70 [place] [address] PCP - General Internal Medicine 11/30/22 Kelby Mcconnell Community Health Worker Case Management 10/19/22 documented as of this encounter
--- OUTSIDE RECORDS SUMMARY | 2025-02-25 09:13 | XMS_ITS | Encounter Summary ---
Author Organization [facility] Address [address] [place] [address] Phone Care Team Providers Care Cosmetic Dentist Name Role Phone Rajesh Phillips NP Primary Care Provide r Encounter Details Date Type Department Care Team (Late st Contact Info) Description 03/23/2023 Procedure Pass [facility], [address] [address] Social History Tobacco Use Types Packs/Day Years [...] Description 07/23/2025 9:30 AM EDT Office Visit [facility] [address] [place] [address] 3rd Floor, [address] [place] [address] Yong Peralta MD 22 [facility], [address] [place] [address] [email or web address] documented as of this encounter Visit Diagnoses Not on filedocumented in this encounter Care Teams Cosmetic Dentist Relationship Specialty Start Date End Date Rajesh Phillips NP PCP - General Nurse Practitioner 02/27/23 documented as of this encounter Additional Source Comments The information contained in this document represents components of the legal health record. It is not the complete legal health record.[facility]
--- OUTSIDE RECORDS SUMMARY | 2025-02-25 09:14 | XMS_ITS | Encounter Summary ---
Author Organization [facility] Address [address] [place] [address] Phone Care Team Providers Care Monotype Caster Name Role Phone Pcp, Unknown Primary Care Provider Rajesh Butterfield NP Primary Care Provide r Rajesh Phillips DAIRY MANAGEMENT SPECIALIST Primary Care Provide r Encounter Details Date Type Department Care Team (Late st Contact Info) Description 09/16/2021 Procedure Pass [facility], Ct Scan - [facility] 30 [place] [address] Social History Tobacco Use Types Packs/Day Years [...] 12:26 PM EDT Daisy Farias RN * [place] Suicide Severity Rating Scale (Screener/Recent Self-Report) Question [...] Description 07/23/2025 9:30 AM EDT Office Visit [facility] [address] [place] [address] 3rd Floor, [address] [place] [address] Yong Peralta MD 22 [facility], [address] [place] [address] [email or web address] documented as of this encounter Visit Diagnoses Not on filedocumented in this encounter Care Teams Monotype Caster Relationship Specialty Start Date End Date Pcp, Unknown PCP - General 09/16/21 12/14/22 Rajesh Phillips NP PCP - General Nurse Practitioner 12/15/22 02/26/23 Rajesh Phillips NP PCP - General Nurse Practitioner 02/27/23 documented as of this encounter Additional Source Comments The information contained in this document represents components of the legal health record. It is not the complete legal health record.[facility]
--- OUTSIDE RECORDS SUMMARY | 2025-02-25 09:14 | XMS_ITS | Encounter Summary ---
Author Organization [facility] Address [address] [facility] [address] [place] [address] Phone Care Team Providers Care Solar Installation Helper Name Role Phone Pcp, Unknown Primary Care Provider Rajesh Butterfield NP Primary Care Provide r Rajesh Phillips DOMESTIC FREIGHT FORWARDER Primary Care Provide r Encounter Details Date Type Department Care Team (Latest Contact Info) Description 02/14/2022 Transcribe Orders [facility] 2nd [place] [address] Irina Mcneil NP 10 [place] [address] Alcohol-induced acute pancreatitis, unspecified complication status (Primary [...] Description 07/23/2025 9:30 AM EDT Office Visit [facility] [address] [facility] 3rd Floor, [address] [place] [address] Yong Peralta MD 22 [facility], [address] [place] [address] [email or web address] documented as of this encounter Results * Iron and iron binding capacity (02/14/2022 3:18 PM EST) Pathologist [facility] IRON 121 45 - 160 ug/dL [facility] IRON BINDING CAPACITY 369 228 - 428 ug/dL [facility] TRANSFERRIN SATURAT. 33 20 - 55 % [facility] Blood 02/14/2022 3:18 PM EST 02/14/2022 3:21 PM EST Irina Mcneil NP LAB BLOOD BKR ORDERABLES Final Result [address] [address] * C-Reactive Protein (02/14/2022 3:18 PM EST) Pathologist [facility] C REACTIVE PROTEIN <3.0 0.0 - 4.0 mg/L [facility] Blood 02/14/2022 3:18 PM EST 02/14/2022 3:21 PM EST Irina Mcneil NP LAB BLOOD BKR ORDERABLES Final Result [address] [address] * (ABNORMAL) Comprehensive metabolic panel (02/14/2022 3:18 PM EST) Pathologist [facility] SODIUM 139 133 - 146 mmol/L [facility] POTASSIUM 3.8 3.3 - 5.1 mmol/L [facility] CHLORIDE 102 96 - 108 mmol/L [facility] CO2 23 21 - 35 mmol/L [facility] BUN 5(L) 6 - 19 mg/dL [facility] CREATININE 0.60 0.5 - 1.5 mg/dL [facility] GLUCOSE 135(H) 70 - 99 mg/dL [facility] ALBUMIN 4.2 3.9 - 4.8 g/dL [facility] TOTAL PROTEIN 7.4 6.5 - 8.0 g/dL [facility] CALCIUM 9.1 8.4 - 10.3 mg/dL [facility] ALKALINE PHOSPHATASE 117 39 - 117 U/L [facility] TOTAL BILIRUBIN 0.4 0.0 - 1.2 mg/dL [facility] AST 62(H) 0 - 37 U/L [facility] ALT 39 0 - 40 U/L [facility] GLOBULIN 3.2 1 - 4.8 g/dL [facility] EGFR >120 >59 mL/min/1.7 3m2 [facility] Comment:Estimated glomerular filtration rate calculated using the CKD-EPI refit equation. ANION GAP 18 10 - 20 mmol/L [facility] Blood 02/14/2022 3:18 PM EST 02/14/2022 3:21 PM EST us Irina Mcneil NP LAB BLOOD BKR ORDERABLES Final Result [facility] 30 [place] [address] * CBC (02/14/2022 3:18 PM EST) WBC 7.05 4.00 - 11.00 K/uL [facility] RBC 5.06 4.23 - 5.82 M/uL [facility] HGB 15.9 13.4 - 17.5 g/dL [facility] HCT 45.3 37.0 - 51.0 % [facility] PLT 244 140 - 430 K/uL [facility] MCV 89.5 78.0 - 97.0 fL [facility] MCH 31.4 25.0 - 33.0 pg [facility] MCHC 35.1 32.0 - 36.0 g/dL [facility] RDW 14.6 11.0 - 15.0 % [facility] MPV 9.7 8.4 - 12.8 fl [facility] Blood 02/14/2022 3:18 PM EST 02/14/2022 3:21 PM EST us Irina Anai Mcneil DOMESTIC FREIGHT FORWARDER LAB BLOOD BKR ORDERABLES Final Result [address] [address] documented in this encounter Visit Diagnoses Diagnosis Alcohol-induced acute pancreatitis, unspecified complication status- Primary Alcohol abuse Nondependent alcohol abuse, unspecified drinking behavior documented in this encounter Care Teams Solar Installation Helper Relationship Specialty Start Date End Date Pcp, Unknown PCP - General 09/16/21 12/14/22 Rajesh Phillips NP PCP - General Nurse Practitioner 12/15/22 02/26/23 Rajesh Phillips NP PCP - General Nurse Practitioner 02/27/23 documented as of this encounter Additional Source Comments The information contained in this document represents components of the legal health record. It is not the complete legal health record.[facility]
--- OUTSIDE RECORDS SUMMARY | 2025-02-25 09:14 | XMS_ITS | Encounter Summary ---
Author Organization [facility] Address [address] [facility] [address] [place] [address] Phone Care Team Providers Care Coil Former Name Role Phone Unknown, Unknown Primary Care Provider Lalo Burt NP Primary Care Provider [phone] Pcp, Unknown Primary Care Provider Rajesh Butterfield NP Primary Care Provide r Rajesh Phillips NP Primary Care Provide r Encounter Details Date Type Department Care Team (Latest Contact Info) Description 08/11/2019 Transcribe Orders Virtual Department 30 [place] [address] Lalo Lozano NP [address] [place] [address] [email or web address] Smoker (Primary Dx) Social History Tobacco [...] Description 07/23/2025 9:30 AM EDT Office Visit [facility] [address] [facility] 3rd Floor, [address] [place] [address] Yong Peralta MD 22 [facility], [address] [place] [address] [email or web address] documented as of this encounter Visit Diagnoses Diagnosis Smoker- Primary Tobacco use disorder documented in this encounter Additional Health Concerns Infection Onset Date Last Indicated Resolved Time CoV-Risk 11/10/2020 11/10/2020 11/20/2020 1:24 AM EDT documented as of this encounter Care Teams Coil Former Relationship Specialty Start Date End Date Unknown, Unknown, PCP - General 01/01/19 10/06/19 Lalo Lozano NP [address] [place] [address] [email or web address] PCP - General Family Medicine 10/07/19 11/09/20 Pcp, Unknown PCP - General 09/16/21 12/14/22 Rajesh Phillips NP PCP - General Nurse Practitioner 12/15/22 02/26/23 Rajesh Phillips NP PCP - General Nurse Practitioner 02/27/23 documented as of this encounter Additional Source Comments The information contained in this document represents components of the legal health record. It is not the complete legal health record.[facility]
--- OUTSIDE RECORDS SUMMARY | 2025-02-25 09:14 | XMS_ITS | Encounter Summary ---
Author Organization [employer] Address [address] [facility] 7t [place] [address] Care Team Providers Care Sheet Pile Hammer Operator Name Role Phone Isaiah Mcconnelldulce Unavailable Unavailable Rajesh Phillips NP Primary Care Provider [phone] Reason for Visit * Reason Comments Med Refill Encounter Details Date Type Department Care Team (Late st Contact Info) Description 11/27/2024 Refill Katharine [facility] MED[facility] [address] [place] [address] Rajesh Phillips NP 70 [place] [address] Chronic left shoulder pain (Primary Dx); Arthritis [...] documented as of this encounter Care Teams Sheet Pile Hammer Operator Relationship Specialty Start Date End Date Rajesh Phillips NP 70 [place] [address] PCP - General Internal Medicine 11/30/22 Kelby Mcconnell Community Health Worker Case Management 10/19/22 documented as of this encounter
--- OUTSIDE RECORDS SUMMARY | 2025-02-25 09:14 | XMS_ITS | Encounter Summary ---
Author Organization [facility] Address [address] [place] [address] Phone Care Team Providers Care Composer Teaching Artist Name Role Phone Pcp, Unknown Primary Care Provider Rajesh Butterfield NP Primary Care Provide r Rajesh Phillips FIELD INTERVIEWER Primary Care Provide r Encounter Details Date Type Department Care Team (Late st Contact Info) Description 09/17/2021 Procedure Pass [address] [address] Social History Tobacco Use Types Packs/Day Years [...] Description 07/23/2025 9:30 AM EDT Office Visit [facility] [address] [place] [address] 3rd Floor, [address] [place] [address] Yong Peralta MD 22 [facility], [address] [place] [address] [email or web address] documented as of this encounter Visit Diagnoses Not on filedocumented in this encounter Care Teams Composer Teaching Artist Relationship Specialty Start Date End Date Pcp, Unknown PCP - General 09/16/21 12/14/22 Rajesh Phillips NP PCP - General Nurse Practitioner 12/15/22 02/26/23 Rajesh Phillips NP PCP - General Nurse Practitioner 02/27/23 documented as of this encounter Additional Source Comments The information contained in this document represents components of the legal health record. It is not the complete legal health record.[facility]
--- OUTSIDE RECORDS SUMMARY | 2025-02-25 09:14 | XMS_ITS | Encounter Summary ---
Author Organization [facility] Address [address] [employer] [facility] [address] [place] [address] Phone Care Team Providers Care Family Medicine Physician Assistant Name Role Phone Pcp, Unknown Primary Care Provider Rajesh Butterfield NP Primary Care Provide r Rajesh Phillips PAINTER PLATE Primary Care Provide r Encounter Details Date Type Department Care Team (Late st Contact Info) Description 12/16/2021 Procedure Pass [facility] Admitting Dept Virtual Department [address] [place] [address] Social History Tobacco Use Types Packs/Day Years [...] Description 07/23/2025 9:30 AM EDT Office Visit [facility] [address] [place] [address] 3rd Floor, [address] [place] [address] Yong Peralta MD 22 [facility], [address] [place] [address] [email or web address] documented as of this encounter Visit Diagnoses Not on filedocumented in this encounter Care Teams Family Medicine Physician Assistant Relationship Specialty Start Date End Date Pcp, Unknown PCP - General 09/16/21 12/14/22 Rajesh Phillips NP PCP - General Nurse Practitioner 12/15/22 02/26/23 Rajesh Phillips NP PCP - General Nurse Practitioner 02/27/23 documented as of this encounter Additional Source Comments The information contained in this document represents components of the legal health record. It is not the complete legal health record.[facility]
--- OUTSIDE RECORDS SUMMARY | 2025-02-25 09:14 | XMS_ITS | Clinical Summary ---
Author Organization [employer] Address [address] [facility] 7t [place] [address] Care Team Providers Care Liquor Commissioner Name Role Phone Isaiah Mcconnelldulce Unavailable Unavailable [...] per day. 90 tablet 1 025 Active Additional Information Patient not taking.Reported on 02/09/2025 hydrocortisone (Anusol-HC) 25 MG suppositoryIndica tions:Rectal bleeding [...] MOUTH IN THE MORNING 90 tablet 3 025 Active bisacodyl (Dulcolax) 5 MG EC tablet TAKE 4 TABLETS BY MOUTH NEEDED 30 tablet 1 025 Active lactulose (Chronulac) 10 GM/15ML solutionIndicatio ns:Constipation, unspecified constipation type Take 15 mL (10 g) by mouth Once per day. 480 mL 5 025 2025 Active gabapentin (Neurontin) 300 MG capsuleIndication s:Alcoholism (CMS/HCC) ([facility]) Take 1 capsule (300 mg) by mouth 3 times daily. 90 capsule 1 025 Active diphenhydrAMINE (BENADryl) 25 MG capsuleIndication s:Insomnia, unspecified type TAKE 1 CAPSULE BY MOUTH IN THE MORNING AND 1 CAPSULE AT BEDTIME NEEDED FOR ALLERGIES 180 capsule Active venlafaxine XR (Effexor XR) 75 MG 24 hr capsuleIndication s:Moderate episode of recurrent major depressive disorder (CMS/HCC) ([facility]) Take 1 capsule (75 mg) by mouth Once per day. 90 capsule 2 025 2025 Active ergocalciferol (Vitamin D2) 1.25 MG (71130 UT) capsuleIndication s:Vitamin D deficiency Take 1 capsule (1.25 mg) by mouth every 7 (seven) days. 12 capsule 2 025 2025 Active acetaminophen (EQ 8HR Arthritis Pain Relief) 650 MG ER tabletIndications :Chronic midline low back pain without sciatica Take 1 tablet (650 mg) by mouth every 8 (eight) hours if needed for mild pain. 270 tablet 2 025 2025 Active celecoxib (CeleBREX) 200 MG capsuleIndication s:Arthritis of right shoulder region,Chronic left shoulder pain Take 1 capsule by mouth twice daily 60 capsule Active celecoxib (CeleBREX) 200 MG capsuleIndication [...] agrees to plan and will discuss with analysis engineer of the home/his girlfriend. No other questions [...] Encounters Date Type Department Care Team Description 02/13/[address] [address] Rajesh Phillips NP Arthritis of right shoulder region; Chronic left shoulder pain 02/09/2025 2:00 PM EST Office Visit [address] [address] Rajesh Phillips NP Smoker (Primary Dx); Dyspnea, unspecified type; Impaired memory 02/06/2025 Telephone [facility] [address] [place] [address] Rajesh Phillips NP transportation paperwork 01/15/[address] [address] Lillian Guzman MD Vitamin D deficiency (Primary Dx) 01/15/[address] [address] Rajesh Phillips NP Moderate episode of recurrent major depressive disorder (CMS/HCC) (HCC) (Primary Dx); Chronic midline low back pain without sciatica 01/12/[address] [address] Siomara Philip FNP Arthritis of right shoulder region; Chronic left shoulder pain 12/24/[address] [address] Rajesh Phillips NP Insomnia, unspecified type 12/18/2024 Refill [facility] [address] [place] [address] Rajesh Phillips NP Arthritis of right shoulder region; Chronic left shoulder pain 11/27/2024 Refill [facility] [address] [place] [address] Rajesh Phillips NP Chronic left shoulder pain (Primary Dx); Arthritis of right shoulder region from Last 3 Months Immunizations Immunization Administration Dates Next Due Hep A, Adult 06/02/2024,10/25/2023 Hep B, adult 06/02/2024,11/22/2023,10/25/2023 INFLUENZA INJECTABLE QUADRIV ALANT CCIIV4 MDCK Multi-dose vial 01/05/2023 Influenza, IIV3, injectable 12/30/2021 Moderna Covid-19 Vaccine 12+ 01/05/2023 Pfizer Covid-19 Vaccine 12+ 09/30/2020 TD (adult), 2 Lf tetanus tox oid, preservative free, adsorbed 01/01/2004 Tdap 10/21/2021 Family History Medical History Relation Name Comments CKD on dialysis Brother Diabetes Brother Vasculitis Brother Alcohol abuse Father Heart attack Father Diabetes Maternal Grandfather Breast cancer Mother COPD Mother Diabetes Son Relation Name Status Comments Brother Father Dad at age 62 form MD. He was an overweight smoker Maternal Grandfather [...] Sign Reading Time Taken Comments Blood Pressure 134/88 02/09/2025 2:03 PM EST Pulse 93 02/09/2025 2:03 PM EST Temperature 36.8 C (98.2 F) 02/09/2025 2:03 PM EST Respiratory Rate 20 05/01/2024 2:28 PM EST Oxygen Saturation 99% 11/25/2024 10:35 AM EDT Inhaled Oxygen Concentration - - Weight 83.5 kg (184 lb) 02/09/2025 2:03 PM EST Height 167.6 cm (5' 6 ) 02/09/2025 2:03 PM EST Body Mass Index 29.7 02/09/2025 2:03 PM EST Plan of Treatment Health Maintenance Due Date Last Done Comments CT Colonography 1975 FIT DNA/Cologuard 1975 FIT 1975 FOBT 1975 Sigmoidoscopy 1975 Disability Screening 1975 Pneumococcal Vaccine: Pediatrics (0 to 5 Years) and At-Risk Patients (6 to 49) Years (1 of 2 - PCV) 12/02/1994 COVID-19 Vaccine (4 - 2024-2 6 season) 2024 01/05/2023, 09/30/2020, 09/06/2020 Influenza Vaccine (#1) 2024 , 12/30/2021 Family Planning (PISQ) 07/16/2025 07/16/2024 SDOH Screening [...] Date/Time Associated Diagnosis Comments AMB REFERRAL TO NEUROLOGY Routine 01/28/2025 Impaired memory HM COLONOSCOPY Routine 02/28/2024 10:48 AM EST LIPID PANEL, STANDARD Routine 01/10/2023 9:06 AM EDT Mixed hyperlipidemia HEPATITIS C AB W/REFLEX TO HCV QUANT NAAT IF POSITIVE Routine 03/17/2022 9:32 AM EST HIV ANTIBODY/ANTIGEN, 4TH GENERATION Routine 03/17/2022 9:32 AM EST from Last 3 Months or Most Recently Relevant to Health Maintenance Results * Referral to Neurology (01/28/2025) us Rajesh Phillips NP OUTPATIENT REFERRAL ORDERABL ES Final Result * Hm Colonoscopy (02/28/2024 10:48 AM EST) us Rajesh Phillips NP HEALTH MAINTENANCE Final Res ult * (ABNORMAL) Lipid panel (01/10/2023 9:06 AM EDT) Cholesterol, Total 161 (<200) MG/DL [facility] Triglyceride (mg/dL) in Serum/Plasma 222(H) (<150) MG/DL [facility] Comment:Fasting HDL Cholesterol 28(L) (>39) MG/DL [facility] LDL Cholesterol, Calculated 89 (0-130) MG/DL [facility] Non HDL Chol. (LDL+VLDL) 133 (<160) MG/DL [facility] Comment: Testing performed or reported by [facility], a Service of [facility], [address] [place] [address] Krishan Millan MD, Product Development Scientist [facility]# [id number] Blood Venous blood specimen / Unknown 01/10/2023 9:06 AM EDT 01/10/2023 9:08 AM EDT Rajesh Phillips UROLOGY NURSE LAB BLOOD ORDERABLES Final R esult Performing Organization Address [facility] Co de Phone Number [facility] [address] [place] [address] * HIV ANTIBODY/ANTIGEN, 4TH GENERATION (03/17/2022 9:32 AM EST) Result 4th Gen HIV Antibody Antigen NEGATIVE (NEG) [facility] Comment: Negative for antibodies to HIV 1 and HIV 2 and P24 antigen. Reference range: Negative Additional note: Written patient authorization is required for each separate release of this test result. This test was performed on the Schumacher Migrant Leader immunoassay system. Testing performed or reported by [facility], a Service of [facility], [address] [place] [address] Krishan Millan MD, Product Development Scientist CLIA# [id number] 03/17/2022 9:32 AM EST 03/17/2022 9:[address] [facility] Josy Alejo PA-C LAB BLOOD ORDERABLES Final Result Performing Organization Address [facility] Co de Phone Number [facility] [address] [place] [address] * Hepatitis C Antibody w/Reflex HCV Quant PCR (03/17/2022 9:32 AM EST) Hepatitis C Virus Ab, Serum NEGATIVE (NEG) [facility] Comment: Reference range: Negative This test was performed on the Schumacher Migrant Leader immunoassay system. Testing performed or reported by [facility], a Service of [facility], [address] [place] [address] Krishan Millan MD, Product Development Scientist CLIA# [id number] 03/17/2022 9:32 AM EST 03/17/2022 9:[address] [facility] Jsoy Alejo PA-C LAB BLOOD ORDERABLES Final Result [facility] [address] [place] [address] from Last 3 Months or Most Recently Relevant to Health Maintenance Insurance MEDICARE [facility] * Guarantor: Bryson Henry Account Type Relation to Patient Date of Phone Billing Address Personal/Family Self [address] * Guarantor: Bryson Henry Account Type Relation to Patient Date of Phone Billing Address Personal/Family Self [address] * Guarantor: Bryson Henry Account Type Relation to Patient Date of Phone Billing Address Personal/Family Self [address] Care Teams Liquor Commissioner Relationship Specialty Start Date End Date Rajesh Phillips NP [address] [place] [address] PCP - General Internal Medicine 11/30/22 Kelby Mcconnell Community Health Worker Case Management 10/19/22
--- OUTSIDE RECORDS SUMMARY | 2025-02-25 09:14 | XMS_ITS | Encounter Summary ---
Author Organization [facility] Address [address] [place] [address] Phone Care Team Providers Care Heel Lining Paster Name Role Phone Pcp, Unknown Primary Care Provider Rajesh Butterfield CATERING COOK Primary Care Provide r Rajesh Phillips CATERING COOK Primary Care Provide r Encounter Details Date Type Department Care Team (Late st Contact Info) Description 11/30/2022 Transcribe Orders Virtual Department [address] [place] [address] Rajesh Phillips, DRE [address] [place] [address] Injury of shoulder, right, sequela (Primary Dx) [...] Description 07/23/2025 9:30 AM EDT Office Visit [facility] [address] [facility] 3rd Floor, [address] [place] [address] Yong Peralta MD [address] [facility], [address] [place] [address] documented as of this encounter Results * [...] metadiaphysis,likely a healed fibro-osseous lesion. Rajesh Phillips CATERING COOK IMG XR UPPER EXTREMIT Y Final Result documented in this encounter Visit Diagnoses Diagnosis Injury of shoulder, right, sequela- Primary Injury of shoulder, right, sequela documented in this encounter Care Teams Heel Lining Paster Relationship Specialty Start Date End Date Pcp, Unknown PCP - General 09/16/21 12/14/22 Rajesh Phillips NP PCP - General Nurse Practitioner 12/15/22 02/26/23 Rajesh Phillips NP PCP - General Nurse Practitioner 02/27/23 documented as of this encounter Additional Source Comments The information contained in this document represents components of the legal health record. It is not the complete legal health record.[facility]
--- OUTSIDE RECORDS SUMMARY | 2025-02-25 09:14 | XMS_ITS | Encounter Summary ---
Author Organization [employer] Address [address] [facility] 7t [place] [address] Care Team Providers Care Asic Verification Engineer Name Role Phone EnedinaJarvischrisdulce Unavailable Unavailable Rajesh Phillips NP Primary Care Provider [phone] Reason for Visit * Reason Onset Date Comments transportation paperwork 02/06/2025 Encounter Details Date Type Department Care Team (Late st Contact Info) Description 02/06/2025 Telephone [facility] [address] [place] [address] Rajesh Phillips NP [address] [place] [address] transportation paperwork Social History Tobacco Use Types Packs/Day Years [...] encounter Miscellaneous Notes * Telephone Encounter - Alta Encarnacion [place] - 02/10/2025 12:45 PM EST Patient came to appointment 02/09 with no paperwork. * Telephone Encounter - Pura Pace - 02/06/2025 4:05 PM EST Patient called stating he would like NARGIS to fill out paperwork for transportation assistance with [facility] with [facility]. Patient states he doesn't have the paperwork but wanted to get the process started. Patient confirmed appointment with NARGIS on 02/09/25. documented in this encounter Plan of Treatment Not on file documented as of this encounter Visit Diagnoses Not on filedocumented in this encounter Additional Health Concerns Assessment Noted Time PHQ-9 Depression Total Score: 8 02/15/20 23 3:56 PM EST documented as of this encounter Care Teams Asic Verification Engineer Relationship Specialty Start Date End Date Rajesh Phillips NP [address] [place] [address] PCP - General Internal Medicine 11/30/22 Kelby Mcconnell Community Health Worker Case Management 10/19/22 documented as of this encounter
--- OUTSIDE RECORDS SUMMARY | 2025-02-25 09:15 | XMS_ITS | Encounter Summary ---
Author Organization [facility] Address [address] [place] [address] Phone Care Team Providers Care Medical Equipment Repair Technician Name Role Phone Rajesh Phillips NP Primary Care Provide r Encounter Details Date Type Department Care Team ([facility] st Contact Info) Description 12/11/2024 Procedure Pass OR Admitting Dept - Virtual Department [address] [place] [address] Social History Tobacco Use Types Packs/Day Years Used Date Smoking Tobacco: Every Day Cigarettes 1 26.1 Started: 01/31/1999 Smokeless Tobacco: Never Comments:Quit 11/14/2024 [...] Description 07/23/2025 9:30 AM EDT Office Visit [facility] [address] [place] [address] 3rd Floor, [address] [place] [address] Yong Peralta MD [address] [facility], [address] [place] [address] documented as of this encounter Visit Diagnoses Not on filedocumented in this encounter Care Teams Medical Equipment Repair Technician Relationship Specialty Start Date End Date Rajesh Phillips NP PCP - General Nurse Practitioner 02/27/23 documented as of this encounter Additional Source Comments The information contained in this document represents components of the legal health record. It is not the complete legal health record.[facility]
--- OUTSIDE RECORDS SUMMARY | 2025-02-25 09:15 | XMS_ITS | Encounter Summary ---
Author Organization [facility] Address [address] [place] [address] 7 [place] [address] Care Team Providers Care Industrial Maintenance Mechanic Name Role Phone Kelby Mcconnell Unavailable Unavailable Rajesh Phillips NP Primary Care Provider [phone] Reason for Visit * Reason Comments Med Refill Encounter Details Date Type Department Care Team (Late st Contact Info) Description 07/20/2022 Refill [facility] [address] [place] [address] Josy Alejo PA-C Social History Tobacco Use [...] on filedocumented in this encounter Care Teams Industrial Maintenance Mechanic Relationship Specialty Start Date End Date Rajesh Phillips NP [address] [place] [address] PCP - General Internal Medicine 11/30/22 Kelby Mcconnell Community Health Worker Case Management 10/19/22 documented as of this encounter
--- OUTSIDE RECORDS SUMMARY | 2025-02-25 09:15 | XMS_ITS | Clinical Summary ---
Author Organization [facility] Address [address] [place] [address] Phone Care Team Providers Care Nuisance Animal Damage Control Agent Name Role Phone Rajesh Phillips NP Primary Care Provide r Allergies Active Allergy Reactions Criticality Noted Date Comments Allergen Zdq-Chydp-Wrlmz Bee 025 [place]et Venom 10/07/2019 Mushroom 12/01/2024 [...] a day. 60 capsule 6 5 Active Active Problems Problem Noted Date Diagnosed Date [...] -has follow up with new pcp at [facility] -alcohol abstinence counseled Alcohol abuse 09/16/2021 Assessment & Plan (09/19/2021 1:04 PM EDT): Patient admits to 4 drinks per day, states he has never had DTs seizures or shakiness from alcohol withdrawal. No evidence of YOANA. Continue multivitamin thiamine folate while hospitalized [facility] Acute alcoholic pancreatitis 09/16/2021 Resolved Problems Problem [...] Encounters Date Type Department Care Team Description 02/10/2025 Transcribe Orders [facility] [address] [facility] 3rd Floor, [address] [place] [address] Laura Thompson Dyspnea, unspecified type (Primary Dx) 01/02/2025 1:00 PM EDT Office Visit [facility] [address] [place] [address] Brandon Joe CNP Post-operative state (Primary Dx); S/P bilateral inguinal hernia repair 12/12/2024 Telephone [facility] Surgery [place] [address] [place] [address] Mae Casey MD Post-op 12/11/2024 1:12 PM EDT - 12/11/2024 2:59 PM EDT Surgery OR Admitting Dept - [facility] Department [address] [place] [address] Mae Casey MD LAPAROSCOPIC REPAIR BILATERAL HERNIA INGUINAL with mesh 12/11/2024 12:29 PM EDT Anesthesia Event OR Admitting Dept - Virtual Department [address] [place] [address] Rei Irving MD 12/11/2024 11:18 AM EDT - 12/11/2024 4:29 PM EDT Hospital Encounter OR Admitting Dept - Virtual Department [address] [place] [address] Mae Casey MD Discharge Disposition: Home or Self Care 12/11/2024 Procedure Pass OR Admitting Dept - Virtual Department [address] [place] [address] 12/10/2024 8:30 AM EDT Pre-Admission Testing Pre Procedure Evaluation [address] [place] [address] Mae Casey MD 12/01/2024 Telephone [facility] [address] [place] [address] Mae Casey MD Post-op from Last 3 Months Family History Medical [...] 1 26.1 Started: 01/31/1999 Smokeless Tobacco: Never Tobacco Cessation:Ready [...] housing situation today? I have lonny sibley 10/22/2024 How many times have you move [...] 12/11/2024 11:32 AM EDT Plan of Treatment Upcoming Encounters Date Type Department Care Team (Late st Contact Info) Description 07/23/2025 9:30 AM EDT Office Visit [facility] [address] [place] [address] 3rd Floor, [address] [place] [address] Yong Peralta MD [address] [facility], [address] [place] [id number] Health Maintenance Due Date Last Done Comments [...] this topic Medical Devices Implanted Type Area Hazardous Waste Technician Device Identifier Shelf Expiration Date Model / Serial / Lot Graft Mesh 10.5cm 16cm 3dmax Polypropylene Monofilament Patch Laparoscopy Hernia Repair Right Cs/1ea - [id number] Implanted:Qty: 1 on 12/11/2024 by Mae Casey MD at [facility] STANDARD Right: Groin [employer] 03/08/2029 [id number] / / [id number] Left Wrist Graft Mesh 10.5cm 16cm 3dmax Polypropylene Monofilament Patch Laparoscopy Hernia Repair Left Cs/1ea - [id number] Implanted:Qty: 1 on 12/11/2024 by Mae Casey MD at [facility] Left: Groin [employer] 03/08/2029 [id number] / / [id number] Procedures Procedure Name Priority Date/Time Associated Diagnosis Comments AIRWAY PLACEMENT Routine 12/11/2024 12:3 3 PM EDT MN LAP,INGUINAL HERNIA REPR,INITIAL 12/11/2024 12:28 PM EDT Non-recurrent bilateral inguinal hernia without obstruction or gangrene ENDOSCOPY, COLON 02/28/2024 11:0 3 AM EST LIPID PANEL Routine 09/17/2021 6:26 AM EDT HEPATITIS C ANTIBODY, QUALITATIVE Routine 09/16/2021 7:41 PM EDT from Last 3 Months or Most Recently Relevant to Health Maintenance Results * ANES ETT DOUBLE LUMEN - AIRWAY LDA (12/11/2024 12:33 PM EDT) Narrative JbSloane lo SHOE REPAIRER APPRENTICE - 12/11/2024 12:33 PM EDT JbSloane lo SHOE REPAIRER APPRENTICE 12/11/2024 12:52 PM Airway Placement Procedure Note: Patient was not difficult to intubate. Procedure performed by: fellow/resident/SHOE REPAIRER APPRENTICE Anesthesiologist: Rei Irving MD Fellow/Resident/SHOE REPAIRER APPRENTICE: Sloane Muhammad CRNA Airway procedure initiated at:12/11/2024 [...] Complications observed? no us Rei Irving MD [place] ANESTHESIA Final Result * ENDOSCOPY, COLON (02/28/2024 11:03 AM EST) Narrative Transcriptions Dave Anderson MD - 02/28/2024 11:03 AM EST [facility] Patient Name: Bryson Henry Attending MD:: DAVE ANDERSON MD, Procedure Date: 02/28/2024 11:03AM Date of : 1975 Age: 48 Admit Type: Outpatient Gender: Male Room: [place] [address] Referring MD: Rajesh Tillman Exam Type: Colonoscopy [...] monitored continuously. The Olympus adult variable colonoscope [id number] #5 was introduced through the anus and [...] colonoscopy in 5 years for surveillance. DAVE ANDERSON MD 02/28/2024 11:49:40 AM This report has been signed electronically. Number of Addenda: 0 Note Initiated On: 02/28/2024 11:03 AM Procedure Code(s): --- Professional --- 95160, Colonoscopy, flexible; with removal of tumor(s), polyp(s), or other lesion(s) by snare technique --- Technical --- 44483, Colonoscopy, flexible; with removal of tumor(s), polyp(s), [...] or abscess without bleeding CPT copyright 2021 [employer]. All rights reserved. The codes documented in this report are preliminary and upon physician primary care sports medicine reviewmay be revised to meet current compliance requirements. Procedure Date: 02/28/2024 11:03:57 AM [address] [place] [address] Rajesh Tillman MD GI PROCEDURE ORDERA BLES Final Result * (ABNORMAL) Lipid panel (09/17/2021 6:26 AM EDT) HDL 28 mg/dL [facility] Comment: Interpretation <40 mg/dL: Low HDL cholesterol (major risk factor for CHD) Greater than or equal to 60 mg/dL: High HDL cholesterol ( negative risk factor for CHD) HDL - cholesterol is affected by a number of factors, e.g. smoking, excerise, hormones, sex and age. CHOLESTEROL 191 0 - 240 mg/dL [facility] TRIGLYCERIDES 135 30 - 160 mg/dL [facility] LDL 136(H) 50 - 129 mg/dL [facility] Comment: LDL levels in terms of risk for coronary heart disease: <100 mg/dL: Optimal 100-129 mg/dL: Near or above optimal 130-159 mg/dL: Borderline high 160-189 mg/dL: High >190 mg/dL: Very High CARDIAC RISK RATIO 6.8(H) 3.4 - 5.0 C [facility] Blood 09/17/2021 6:26 AM EDT 09/17/2021 7:48 AM EDT us Kimmy Nickerson MASTER FIRE CONTROL TECHNICIAN LAB BLOOD BKR ORDERABLE S Final Result [address] [address] * Hepatitis C antibody, qualitative (09/16/2021 7:41 PM EDT) HCV NON-REACTIV E NON-REACTI VE [facility] Blood 09/16/2021 7:41 PM EDT 09/16/2021 7:51 PM EDT us Kimmy Nickerson MASTER FIRE CONTROL TECHNICIAN LAB BLOOD BKR ORDERABLE S Final Result Performing Organization Address City/[facility]/ZIP Co de Phone Number [address] [address] from Last 3 Months or Most Recently Relevant to Health Maintenance [place] [address] [place] [address] C3 ACO C3 ACO C3 ACO C3 ACO C3 ACO C3 ACO C3 ACO C3 ACO [place] [id number] [facility] [place] [address] Advance Directives For more information, please contact: [phone] (9AM - 5PM [facility], Sunday-Sunday) Documents on File Type Date Recorded Patient Cardiology Rn Expl anation Healthcare Proxy 09/21/2021 3:14 PM * Full Code (Latest Code Status on File) Date Activated Date Inactivated Comments 12/11/2024 11:28 AM Question Answer Comments Code Status Confirmed With: Patient * Full Code Date Activated Date Inactivated Comments 09/16/2021 7:23 PM 12/11/2024 11:28 AM Question Answer Comments Code Status Confirmed With: Patient Care Teams Nuisance Animal Damage Control Agent Relationship Specialty Start Date End Date Rajesh Phillips NP PCP - General Nurse Practitioner 02/27/23 Additional Source Comments The information contained in this document represents components of the legal health record. It is not the complete legal health record.[facility]
--- OUTSIDE RECORDS SUMMARY | 2025-02-25 09:15 | XMS_ITS | Encounter Summary ---
Author Organization [employer] Address [address] [facility] 7t [place] [address] Care Team Providers Care Clinical Immunologist Name Role Phone Isaiah Mcconnelldulce Unavailable Unavailable Rajesh Phillips NP Primary Care Provider Encounter Details Date Type Department Care Team (Late st Contact Info) Description 02/27/2023 Orders Only [facility] [address] [place] [address] Rajesh Phillips NP [address] [place] [address] Social History Tobacco Use Types Packs/Day Years [...] Venous blood specimen / Unknown Rajesh Phillips KNIFE OPERATOR LAB BLOOD ORDERABLES Edited Result - Final documented in this encounter Visit Diagnoses Not on filedocumented in this encounter Additional Health Concerns Assessment Noted Time PHQ-9 Depression Total Score: 8 02/15/20 23 3:56 PM EST documented as of this encounter Care Teams Clinical Immunologist Relationship Specialty Start Date End Date Rajesh Phillips, DRE [address] [place] [address] PCP - General Internal Medicine 11/30/22 Kelby Mcconnell Community Health Worker Case Management 10/19/22 documented as of this encounter
--- OUTSIDE RECORDS SUMMARY | 2025-02-25 09:15 | XMS_ITS | Encounter Summary ---
Author Organization [facility] Address [address] [place] [address] Phone Care Team Providers Care Developer Advocate Name Role Phone Rajesh Phillips NP Primary Care Provide r Encounter Details Date Type Department Care Team (Late st Contact Info) Description 10/22/2024 Procedure Pass [facility] [place], Ct Scan - [address] [address] Social History Tobacco Use Types Packs/Day Years [...] 10:44 AM EDT Tyra Richard RN * [place] Suicide Severity Rating Scale (Screener/Recent Self-Report) Question Answer Date of Assessment Author 1. Wish to be (Past 1 Month) No 025 10:44 AM EDT Tyra Rebolledo RN 2. Non-Specific Active Suici casey Thoughts (Past 1 Month) No 10/22/2024 10:44 AM KATIET Cuauhtemoc Rebolledo RN 6. Suicidal Behavior (Lifetime) No 10:44 AM KATIET Tyra Rebolledo RN documented as of this encounter Plan of Treatment Upcoming Encounters Date Type Department Care Team (Late st Contact Info) Description 07/23/2025 9:30 AM EDT Office Visit [facility] [address] [facility] 3rd Floor, [address] [place] [address] Yong Peralta MD 22 [facility], [address] [place] [address] [email or web address] documented as of this encounter Visit Diagnoses Not on filedocumented in this encounter Care Teams Developer Advocate Relationship Specialty Start Date End Date Rajesh Phillips NP PCP - General Nurse Practitioner 02/27/23 documented as of this encounter Additional Source Comments The information contained in this document represents components of the legal health record. It is not the complete legal health record.[facility]
--- OUTSIDE RECORDS SUMMARY | 2025-02-25 09:15 | XMS_ITS | Encounter Summary ---
Author Organization [facility] Address [address] [place] [address] Phone Care Team Providers Care Cement Sack Breaker Name Role Phone Rajesh Phillips NP Primary Care Provide r Encounter Details Date Type Department Care Team ([facility] st Contact Info) Description 02/28/2024 Procedure Pass [facility] Admitting Dept Virtual Department [address] [place] [address] Social History Tobacco Use Types Packs/Day Years [...] Description 07/23/2025 9:30 AM EDT Office Visit [facility] [address] [place] [address] 3rd Floor, [address] [place], [place] [id number] Yong Peralta MD 22 [facility], [address] [place] [address] [email or web address] documented as of this encounter Visit Diagnoses Not on filedocumented in this encounter Care Teams Cement Sack Breaker Relationship Specialty Start Date End Date Rajesh Phillips NP PCP - General Nurse Practitioner 02/27/23 documented as of this encounter Additional Source Comments The information contained in this document represents components of the legal health record. It is not the complete legal health record.[facility]
[2025-02-25 11:08] LABS: Folate 10.3 ng/mL (> or = 4.0); Vitamin B12 422 pg/mL (200-900)
--- NOTE | 2025-02-25 14:44 | EMG_ITS ---
Chief complaint: Bilateral leg pain, right leg worse Referred by: Caryl Capone MD Procedure done: NCS of bilateral lower extremity, EMG of right lower extremity [place] [address] [facility]
== END 2025-02-25 08:44 | disposition home or self-care (01) ==
LOC: HO.NEURO 08:43
PROVIDERS: PCP Nurse Practitioner Community Health; Visit Provider Psychiatry & Neurology Neurology
DX: R41.3 Other amnesia (principal); G62.9 Polyneuropathy, unspecified; M79.604 Pain in right leg; M79.605 Pain in left leg
CPT/HCPCS: 36415; 82607; 82746; 84425; 84443; 95886; 95913

== ENCOUNTER → 2025-02-25 14:44 | Outpatient (BNV) | payer MEDICARE, MEDICAID, SELFPAY | PROVIDERS: PCP Nurse Practitioner Community Health; Visit Provider Psychiatry & Neurology Neurology | DX: G62.9 Polyneuropathy, unspecified (principal) | CPT/HCPCS: 95886; 95912 ==

== ENCOUNTER 2025-03-10 12:42 | Outpatient (REF) | payer MEDICARE, MEDICAID, SELFPAY ==
--- NOTE | 2025-03-10 14:10 | EEG_ITS ---
History: 49 year old man with history of hyperlipidemia, pancreatitis and chronic alcohol abuse with heavy drinking for more than 10 years who quit about a year ago. Since then he has noted significant memory problems with short term. Medication: atorvastatin, Vit D2, gabapentin, lactulose, venlafaxine Technical Description Photic Stimulation: completed Hyperventilation: performed- good effort Behavioral State: pleasant State of Consciousness: awake and drowsy Skull Defect: none Sedation: none Handedness: right Duration: 32 min 28 sec Technology Integration Specialist Comments: Last Meal: 03/09/25 Time / date of last symptom: daily Description: MTDD
--- OUTSIDE RECORDS SUMMARY | 2025-03-10 16:37 | XMS_ITS | Encounter Summary ---
Author Organization [employer] Address 75 [facility] 7t [place] [address] Care Team Providers Care Cutter And Presser Name Role Phone Kelby Mcconnell Unavailable Unavailable Rajesh Phillips NP Primary Care Provider [phone] Reason for Visit * Reason Comments Med Refill Encounter Details Date Type Department Care Team (Late st Contact Info) Description 01/19/2024 Refill Katharine [facility] [address] [place] [address] Rajesh Phillips NP [address] [place] [address] Erectile dysfunction, unspecified erectile dysfunction type Social [...] Care Team (Late st Contact Info) Description 06/15/2025 10:30 AM EDT Office Visit Katharine [facility] [address] [place] [address] Rajesh Phillips NP [address] [place] [address] documented as of this encounter Visit Diagnoses Diagnosis Erectile dysfunction, unspecified erectile dysfunction type documented in this encounter Additional Health Concerns Assessment Noted Time PHQ-9 Depression Total Score: 8 02/15/20 23 3:56 PM EST documented as of this encounter Care Teams Cutter And Presser Relationship Specialty Start Date End Date Rajesh Phillips NP [address] [place] [address] PCP - General Internal Medicine 11/30/22 Kelby Mcconnell Community Health Worker Case Management 10/19/22 documented as of this encounter
--- OUTSIDE RECORDS SUMMARY | 2025-03-10 16:37 | XMS_ITS | Encounter Summary ---
Author Organization [employer] Address 75 [facility] 7t [place] [address] Care Team Providers Care Supervisor Metal Fabricating Name Role Phone Enedina Jarvischrisdulce Unavailable Unavailable Rajesh Phillips NP Primary Care Provider [phone] Reason for Visit * Reason Onset Date Comments PT-1 12/19/2023 Encounter Details Date Type Department Care Team (Late st Contact Info) Description 12/19/2023 Telephone [facility] MEDICAL [address] [place] [address] Rajesh Phillips NP 70 [place] [address] PT-1 Social History Tobacco Use Types Packs/Day [...] [facility]-1 Request Number [id number] is Authorized PT-1 request is submitted- [facility] PT-1 Request Number [id number] is Authorized PT-1 request is submitted- [facility] [place] [facility] and sports medicine PT-1 Request Number [id number] is Authorized Pt already has an active PT-[address] that I processed on 12/18/23. Exp 12/17/2024. * Telephone Encounter - Sasha Jones - 12/19/2023 11:09 AM EDT 1-5 Pt-1 Request/Renewal: Letter from [employer] Name of Treating Provider/Treating Facility: [facility] Address of Treating Facility: [address] [place] [address] Number of Visits Requested: N/A Patient's Physical Address: [address] [place] [address]. [place] [address] Date of Expiration: 2-5 Pt-1 Request/Renewal: Letter from [facility] Name of Treating Provider/Treating Facility[facility] Address of Treating Facility: [address] [place] [address] Number of Visits Requested: N/A Patient's Physical Address: [address] [place] Date of Expiration: 01/10/2024 3-5 Pt-1 Request/Renewal: Letter from [facility] Name of Treating Provider/Treating Facility: [facility] Address of Treating Facility: [address] [place] [address] Number of Visits Requested: N/A Patient's Physical Address: [address] [place] Date of Expiration: 01/10/2024 4-5 Pt-1 Request/Renewal: Letter from [facility] Name of Treating Provider/Treating Facility: [facility] Address of Treating Facility: [address] [place] [address] Number of Visits Requested: N/A Patient's Physical Address: [address] [place], [place] Date of Expiration: 01/10/2024 5-5 Pt-1 Request/Renewal: Letter from [facility] Name of Treating Provider/Treating Facility: [facility] Address of Treating Facility: [address] [place] [address] Number of Visits Requested: N/A Patient's Physical Address: [address] [place], [place] Date of Expiration: 01/10/2024 documented in this encounter Plan of Treatment Upcoming Encounters Date Type Department Care Team (Late st Contact Info) Description 06/15/2025 10:30 AM EDT Office Visit Katharine [facility] MED[facility] [address] [place] [address] Rajesh Phillips NP [address] [place] [address] documented as of this encounter Visit Diagnoses Not on filedocumented in this encounter Additional Health Concerns Assessment Noted Time PHQ-9 Depression Total Score: 8 02/15/20 23 3:56 PM EST documented as of this encounter Care Teams Supervisor Metal Fabricating Relationship Specialty Start Date End Date Rajesh Phillips NP [address] [place] [address] PCP - General Internal Medicine 11/30/22 Kelby Mcconnell Community Health Worker Case Management 10/19/22 documented as of this encounter
--- OUTSIDE RECORDS SUMMARY | 2025-03-10 16:37 | XMS_ITS | Encounter Summary ---
Author Organization [facility] Address [address] [facility] [address] [place] [address] Phone Care Team Providers Care Folder Machine Operator Name Role Phone Rajesh Phillips NP [...] Expiration Date Visits Re quested Visits Authorized [id number] Closed 01/30/2023 1 1 Encounter Details Date Type Department Care Team (Late st Contact Info) Description 01/30/2023 Transcribe Orders Virtual Department [address] [place] [address] Rajesh Phillips NP [address] [place] [address] History of traumatic head injury (Primary Dx); [...] Description 07/23/2025 9:30 AM EDT Office Visit [facility] [address] [place] [address] 3rd [facility], [address] [place] [address] Yong Peralta MD [address] [place] [address] [email or web address] documented as of this encounter Results * [...] clinician's provided indication for this examination in [facility]: Outside Radiology Order; History of traumatic head [...] clinician's provided indication for this examination in [facility]:Outside Radiology Order; History of traumatic head injury/ [...] of prior traumatic brain injury. Rajesh Phillips DIVER TENDER IMG MR HEAD/NECK Natalee l Result documented in this encounter Visit Diagnoses Diagnosis History of traumatic head injury- Primary Cognitive impairment Unspecified persistent mental disorders due to conditions classified elsewhere History of traumatic head injury Cognitive impairment Unspecified persistent mental disorders due to conditions classified elsewhere documented in this encounter Care Teams Folder Machine Operator Relationship Specialty Start Date End Date Rajesh Phillips NP PCP - General Nurse Practitioner 12/15/22 02/26/23 Rajesh Phillips NP PCP - General Nurse Practitioner 02/27/23 documented as of this encounter Additional Source Comments The information contained in this document represents components of the legal health record. It is not the complete legal health record.[facility]
--- OUTSIDE RECORDS SUMMARY | 2025-03-10 16:37 | XMS_ITS | Encounter Summary ---
Author Organization [facility] Address [address] [place] [address] Phone Care Team Providers Care Grinder Hand Name Role Phone Pcp, Unknown Primary Care Provider Rajesh Butterfield NP Primary Care Provide r Rajesh Phillips TIME STAMP ASSEMBLER Primary Care Provide r Encounter Details Date Type Department Care Team (Late st Contact Info) Description 09/16/2021 Procedure Pass [facility], Ct Scan - [address] [address] Social History Tobacco Use Types Packs/Day Years [...] Description 07/23/2025 9:30 AM EDT Office Visit [facility] [address] [place] [address] 3rd Floor, [address] [place] [address] Yong Peralta MD 22 [facility], [address] [place] [address] [email or web address] documented as of this encounter Visit Diagnoses Not on filedocumented in this encounter Care Teams Grinder Hand Relationship Specialty Start Date End Date Pcp, Unknown PCP - General 09/16/21 12/14/22 Rajesh Phillips NP PCP - General Nurse Practitioner 12/15/22 02/26/23 Rajesh Phillips NP PCP - General Nurse Practitioner 02/27/23 documented as of this encounter Additional Source Comments The information contained in this document represents components of the legal health record. It is not the complete legal health record.[facility]
--- OUTSIDE RECORDS SUMMARY | 2025-03-10 16:37 | XMS_ITS | Encounter Summary ---
Author Organization [facility] Address [address] [place] [address] Phone Care Team Providers Care Dairy Products Maker Name Role Phone Rajesh Phillips RETAIL SUPERVISOR Primary Care Provide r Encounter Details Date Type Department Care Team (Latest Contact Info) Description 10/25/2023 Transcribe Orders Virtual Department 30 [place] [address] Rajesh Phillips, DRE 70 [place] [address] Back pain with radiculopathy (Primary Dx) Social [...] Description 07/23/2025 9:30 AM EDT Office Visit [facility] [address] [place] [address] 3rd Floor, [address] [place] [address] Yong Peralta MD [address] [place] [address] [email or web address] documented as of this encounter Results * [...] or malalignment. Lower lumbar facetarthropathy. Rajesh Phillips RETAIL SUPERVISOR IMG XR SPINE Final Result documented in this encounter Visit Diagnoses Diagnosis Back pain with radiculopathy- Primary Back pain with radiculopathy documented in this encounter Care Teams Dairy Products Maker Relationship Specialty Start Date End Date Rajesh Phillips NP PCP - General Nurse Practitioner 02/27/23 documented as of this encounter Additional Source Comments The information contained in this document represents components of the legal health record. It is not the complete legal health record.[facility]
--- OUTSIDE RECORDS SUMMARY | 2025-03-10 16:37 | XMS_ITS | Encounter Summary ---
Author Organization [employer] Address [address] [place] [address] 7t [place] [address] Care Team Providers Care Ophthalmic Surgical Assistant Name Role Phone Kelby Mcconnell Unavailable Unavailable Rajesh Phillips NP Primary Care Provider [phone] Reason for Visit * Reason Onset Date Comments Med Refill 01/20/2024 Encounter Details Date Type Department Care Team (Late st Contact Info) Description 01/20/2024 Refill Katharine [facility] MED[facility] [address] [place] [address] Rajesh Phillips NP [address] [place] [address] Erectile dysfunction, unspecified erectile dysfunction type Social [...] 06/15/2025 10:30 AM EDT Office Visit Katharine [facility] MEDICAL [address] [place] [address] Rajesh Phillips NP [address] [place] [address] documented as of this encounter Visit Diagnoses Diagnosis Erectile dysfunction, unspecified erectile dysfunction type documented in this encounter Additional Health Concerns Assessment Noted Time PHQ-9 Depression Total Score: 8 02/15/20 23 3:56 PM EST documented as of this encounter Care Teams Ophthalmic Surgical Assistant Relationship Specialty Start Date End Date Rajesh Phillips NP [address] [place] [address] PCP - General Internal Medicine 11/30/22 Kelby Mcconnell Community Health Worker Case Management 10/19/22 documented as of this encounter
--- OUTSIDE RECORDS SUMMARY | 2025-03-10 16:37 | XMS_ITS | Encounter Summary ---
Author Organization [facility] Address [address] [place] [address] Phone Care Team Providers Care Help Desk Support Name Role Phone Rajesh Phillips NP Primary Care Provide r Encounter Details Date Type Department Care Team (Late st Contact Info) Description 03/23/2023 Procedure Pass [facility], [address] [address] Social History Tobacco Use Types Packs/Day Years [...] Description 07/23/2025 9:30 AM EDT Office Visit [facility] [address] [place] [address] 3rd Floor, [address] [place] [address] Yong Peralta MD 22 [facility], [address] [place] [address] [email or web address] documented as of this encounter Visit Diagnoses Not on filedocumented in this encounter Care Teams Help Desk Support Relationship Specialty Start Date End Date Rajesh Phillips NP PCP - General Nurse Practitioner 02/27/23 documented as of this encounter Additional Source Comments The information contained in this document represents components of the legal health record. It is not the complete legal health record.[facility]
--- OUTSIDE RECORDS SUMMARY | 2025-03-10 16:37 | XMS_ITS | Encounter Summary ---
Author Organization [employer] Address 75 [facility] 7t [place] [address] Care Team Providers Care Clerk Specialist Name Role Phone Enedina Jarvischrisdulce Unavailable Unavailable Rajesh Phillips NP Primary Care Provider Reason for Visit * Reason Onset Date Comments Sanjeev Fernandez 12/05/2023 Request For Order(s) 12/05/2023 Encounter Details Date Type Department Care Team (Late st Contact Info) Description 12/05/2023 Telephone [facility] MEDICAL [address] [place] [address] Rajesh Phillips, DRE [address] [place] [address] Sanjeev Fernandez; Request For Order(s) Social History [...] reports he had blood drawn yesterday at [facility]. Pt does not think that they had all the ordersthat JL placed. Call placed to [facility] outpatient lab. Spoke with Cindi. She reports the only order they have in their system ist he PSA. Call placed to pt. He will go to the lab at [place] this afternoon to have the rest of [...] 06/15/2025 10:30 AM EDT Office Visit Katharine [facility] MEDICAL [address] [place] [address] Rajesh Phillips NP 70 [facility] [place] [address] documented as of this encounter Visit Diagnoses Not on filedocumented in this encounter Additional Health Concerns Assessment Noted Time PHQ-9 Depression Total Score: 8 02/15/20 23 3:56 PM EST documented as of this encounter Care Teams Clerk Specialist Relationship Specialty Start Date End Date Rajesh Phillips NP 70 [facility] [place] [address] PCP - General Internal Medicine 11/30/22 Kelby Mcconnell Community Health Worker Case Management 10/19/22 documented as of this encounter
--- OUTSIDE RECORDS SUMMARY | 2025-03-10 16:37 | XMS_ITS | Encounter Summary ---
Author Organization [facility] Address 75 [facility] 7t [place] [address] Care Team Providers Care Electrical Laboratory Technician Name Role Phone Kelby Mcconnell Unavailable Unavailable Rajesh Phillips NP Primary Care Provider [phone] Encounter Details Date Type Department Care Team (Late st Contact Info) Description 03/18/2024 Orders Only [facility] [address] [place] [address] Rajesh Phillips NP [address] [place] [address] Social History Tobacco Use Types Packs/Day Years [...] 06/15/2025 10:30 AM EDT Office Visit Katharine [facility] MED[facility] [address] [place] [address] Rajesh Phillips NP [address] [place] [address] documented as of this encounter Procedures Procedure [...] documented as of this encounter Care Teams Electrical Laboratory Technician Relationship Specialty Start Date End Date Rajesh Phillips NP [address] [place] [address] PCP - General Internal Medicine 11/30/22 Kelby Mcconnell Community Health Worker Case Management 10/19/22 documented as of this encounter
--- OUTSIDE RECORDS SUMMARY | 2025-03-10 16:37 | XMS_ITS | Encounter Summary ---
Author Organization [email or web address] Address [address] [place] [address] 7t [place] [address] Care Team Providers Care Jewel Supervisor Name Role Phone Kelby Mcconnell Unavailable Unavailable Rajesh Phillips NP Primary Care Provider [phone] Reason for Visit * Reason Onset Date Comments Med Refill 02/04/2024 Encounter Details Date Type Department Care Team (Late st Contact Info) Description 02/04/2024 Refill Katharine [facility] MED[facility] [address] [place] [address] Rajesh Phillips, DRE [address] [place] [address] Social History Tobacco Use Types Packs/Day Years [...] 06/15/2025 10:30 AM EDT Office Visit Katharine [facility] [address] [place] [address] Rajesh Phillips NP [address] [place] [address] documented as of this encounter Visit Diagnoses Not on filedocumented in this encounter Additional Health Concerns Assessment Noted Time PHQ-9 Depression Total Score: 8 02/15/20 23 3:56 PM EST documented as of this encounter Care Teams Jewel Supervisor Relationship Specialty Start Date End Date Rajesh Phillips NP [address] [place] [address] PCP - General Internal Medicine 11/30/22 Kelby Mcconnell Community Health Worker Case Management 10/19/22 documented as of this encounter
--- OUTSIDE RECORDS SUMMARY | 2025-03-10 16:37 | XMS_ITS | Encounter Summary ---
Author Organization [facility] Address [address] [facility] [address] [place] [address] Phone Care Team Providers Care Geophysical Prospector Name Role Phone Unknown, Unknown Primary Care Provider Lalo Burt NP Primary Care Provider [phone] Pcp, Unknown Primary Care Provider Rajesh Butterfield NP Primary Care Provide r Rajesh Phillips NP Primary Care Provide r Encounter Details Date Type Department Care Team (Latest Contact Info) Description 08/11/2019 Transcribe Orders Virtual Department [address] [place] [address] Lalo Lozano NP [address] [place] [address] [email or web address] Smoker (Primary Dx) Social History Tobacco [...] 07/23/2025 9:30 AM EDT Office Visit [facility] [address] [facility] 3rd Floor, [address] [place] [address] Yong Peralta MD [address] [facility], [address] [place] [address] [email or web address] documented as of this encounter Visit Diagnoses Diagnosis Smoker- Primary Tobacco use disorder documented in this encounter Additional Health Concerns Infection Onset Date Last Indicated Resolved Time CoV-Risk 11/10/2020 11/10/2020 11/20/2020 1:24 AM EDT documented as of this encounter Care Teams Geophysical Prospector Relationship Specialty Start Date End Date Unknown, Unknown, PCP - General 01/01/19 10/06/19 Lalo Lozano NP [address] [place] [address] [email or web address] PCP - General Family Medicine 10/07/19 11/09/20 Pcp, Unknown PCP - General 09/16/21 12/14/22 Rajesh Phillips NP PCP - General Nurse Practitioner 12/15/22 02/26/23 Rajesh Phillips NP PCP - General Nurse Practitioner 02/27/23 documented as of this encounter Additional Source Comments The information contained in this document represents components of the legal health record. It is not the complete legal health record.[facility]
--- OUTSIDE RECORDS SUMMARY | 2025-03-10 16:37 | XMS_ITS | Encounter Summary ---
Author Organization [facility] Address [address] [place] [address] Phone Care Team Providers Care Chainstitch Tunnel Elastic Operator Name Role Phone Rajesh Phillips CHARGE OPERATOR Primary Care Provide r Rajesh Phillips CHARGE OPERATOR Primary Care Provide r Encounter Details Date Type Department Care Team ([facility] Contact Info) Description 01/30/2023 Procedure Pass [facility], [address] [address] Social History Tobacco Use Types Packs/Day Years [...] Upcoming Encounters Date Type Department Care Team ([facility] st Contact Info) Description 07/23/2025 9:30 AM EDT Office Visit [facility] [address] [facility] 3rd Floor, [address] [place] [address] Yong Peralta MD [address] [facility], [address] [place] [address] [email or web address] documented as of this encounter Visit Diagnoses Not on filedocumented in this encounter Care Teams Chainstitch Tunnel Elastic Operator Relationship Specialty Start Date End Date Rajesh Phillips NP PCP - General Nurse Practitioner 12/15/22 02/26/23 Rajesh Phillips NP PCP - General Nurse Practitioner 02/27/23 documented as of this encounter Additional Source Comments The information contained in this document represents components of the legal health record. It is not the complete legal health record.[facility]
--- OUTSIDE RECORDS SUMMARY | 2025-03-10 16:37 | XMS_ITS | Encounter Summary ---
Author Organization [employer] Address [address] [facility] 7t [place] [address] Care Team Providers Care Mud Car Worker Name Role Phone Kelby Mcconnell Unavailable Unavailable Rajesh Phillips NP Primary Care Provider [phone] Reason for Visit * Reason Comments Med Refill Encounter Details Date Type Department Care Team (Late st Contact Info) Description 12/18/2023 Refill [facility] MED[facility] [address] [place] [address] Rajesh Phillips NP [address] [place] [address] Alcoholism (CMS/HCC); Vitamin D deficiency Social History [...] 06/15/2025 10:30 AM EDT Office Visit [facility] MED[facility] [address] [place] [address] Rajesh Phillips NP [address] [place] [address] documented as of this encounter Visit Diagnoses Diagnosis Alcoholism (CMS/HCC) (HCC) Other and unspecified alcohol dependence, unspecified drinking behavior Vitamin D deficiency documented in this encounter Additional Health Concerns Assessment Noted Time PHQ-9 Depression Total Score: 8 02/15/20 23 3:56 PM EST documented as of this encounter Care Teams Mud Car Worker Relationship Specialty Start Date End Date Rajesh Phillips NP [address] [place] [address] PCP - General Internal Medicine 11/30/22 Kelby Mcconnell Community Health Worker Case Management 10/19/22 documented as of this encounter
--- OUTSIDE RECORDS SUMMARY | 2025-03-10 16:37 | XMS_ITS | Encounter Summary ---
Author Organization [employer] Address [address] [facility] 7t [place] [address] Care Team Providers Care Commercial Underwriter Name Role Phone Kelby Mcconnell Unavailable Unavailable Rajesh Phillips NP Primary Care Provider Encounter Details Date Type Department Care Team (Late st Contact Info) Description 03/03/2024 Orders Only [facility] [address] [place] [address] Rajesh Phillips NP [address] [place] [address] Social History Tobacco Use Types Packs/Day Years [...] 06/15/2025 10:30 AM EDT Office Visit [facility] MED[facility] [address] [place] [address] Rajesh Phillips NP [address] [place] [address] documented as of this encounter Procedures Procedure [...] documented as of this encounter Care Teams Commercial Underwriter Relationship Specialty Start Date End Date Rajesh Phillips NP [address] [place] [address] PCP - General Internal Medicine 11/30/22 Kelby Mcconnell Community Health Worker Case Management 10/19/22 documented as of this encounter
--- OUTSIDE RECORDS SUMMARY | 2025-03-10 16:38 | XMS_ITS | Encounter Summary ---
Author Organization [facility] Address [address] [place] [address] Phone Care Team Providers Care Machine Splitter Name Role Phone Pcp, Unknown Primary Care Provider Rajesh Butterfield TETRYL BOILING TUB OPERATOR Primary Care Provide r Rajesh Phillips TETRYL BOILING TUB OPERATOR Primary Care Provide r Encounter Details Date Type Department Care Team (Late st Contact Info) Description 11/30/2022 Transcribe Orders Virtual Department 30 [place] [address] Rajesh Phillips, DRE [address] [place] [address] Injury of shoulder, right, sequela (Primary Dx) [...] Description 07/23/2025 9:30 AM EDT Office Visit [facility] [address] [facility] 3rd Floor, [address] [place] [address] Yong Peralta MD [address] [facility], [address] [place] [address] documented as of this encounter Results * [...] metadiaphysis,likely a healed fibro-osseous lesion. Rajesh Phillips TETRYL BOILING TUB OPERATOR IMG XR UPPER EXTREMIT Y Final Result documented in this encounter Visit Diagnoses Diagnosis Injury of shoulder, right, sequela- Primary Injury of shoulder, right, sequela documented in this encounter Care Teams Machine Splitter Relationship Specialty Start Date End Date Pcp, Unknown PCP - General 09/16/21 12/14/22 Rajesh Phillips NP PCP - General Nurse Practitioner 12/15/22 02/26/23 Rajesh Phillips NP PCP - General Nurse Practitioner 02/27/23 documented as of this encounter Additional Source Comments The information contained in this document represents components of the legal health record. It is not the complete legal health record.[facility]
--- OUTSIDE RECORDS SUMMARY | 2025-03-10 16:38 | XMS_ITS | Clinical Summary ---
Author Organization [employer] Address [address] [facility] 7t [place] [address] Care Team Providers Care Library Clerk Name Role Phone Isaiah Mcconnelldulce Unavailable Unavailable [...] gabapentin (Neurontin) 300 MG capsuleIndication s:Alcoholism (CMS/HCC) ([facility]) Take 1 capsule (300 mg) by mouth 3 times daily. 90 capsule 1 025 Active diphenhydrAMINE (BENADryl) 25 MG capsuleIndication s:Insomnia, unspecified type TAKE 1 CAPSULE BY MOUTH IN THE MORNING AND 1 CAPSULE AT BEDTIME NEEDED FOR ALLERGIES 180 capsule Active venlafaxine XR (Effexor XR) 75 MG 24 hr capsuleIndication s:Moderate episode of recurrent major depressive disorder (CMS/HCC) ([facility]) Take 1 capsule (75 mg) by mouth Once per day. 90 capsule 2 025 2025 Active ergocalciferol (Vitamin D2) 1.25 MG (67318 UT) capsuleIndication s:Vitamin D deficiency Take 1 [...] agrees to plan and will discuss with package pick up of the home/his girlfriend. No other questions [...] Encounters Date Type Department Care Team Description 02/26/[address] [facility] [address] [place] [address] Provider, MD Rahul 02/25/2025 Telephone [facility] [address] [place] [address] Rajesh Phillips NP PT-1 02/13/[address] [address] Rajesh Phillips NP Arthritis of right shoulder region; Chronic left shoulder pain 02/09/2025 2:00 PM EST Office Visit [address] [address] Rajesh Phillips NP Smoker (Primary Dx); Dyspnea, unspecified type; Impaired memory 02/06/2025 Telephone [facility] MEDICAL [address] [place] [address] Rajesh Phillips NP transportation paperwork 01/15/[address] [address] Lillian Guzman MD Vitamin D deficiency (Primary Dx) 01/15/[address] [address] Rajesh Phillips NP Moderate episode of recurrent major depressive disorder (CMS/HCC) (HCC) (Primary Dx); Chronic midline low back pain without sciatica 01/12/[address] [address] Siomara Philip, STRUCTURAL ENGINEERING TECHNICIAN Arthritis of right shoulder region; Chronic left shoulder pain 12/24/2024 Refill [facility] MEDICAL [address] [facility] [id number] Rajesh Phillips NP Insomnia, unspecified type 12/18/2024 Refill [facility] [address] [facility] [place] [id number] Rajesh Phillips NP Arthritis of right shoulder region; Chronic left shoulder pain from Last 3 Months Immunizations Immunization Administration [...] Brother Father Dad at age 62 form [place]. He was an overweight smoker Maternal Grandfather [...] 02/09/2025 2:03 PM EST Plan of Treatment Upcoming Encounters Date Type Department Care Team (Late st Contact Info) Description 06/15/2025 10:30 AM EDT Office Visit [facility] MED[facility] [address] [place] [address] Rajesh Phillips NP [address] [place] [address] Health Maintenance Due Date Last Done Comments [...] Procedure Name Priority Date/Time Associated Diagnosis Comments TSH Routine 02/25/2025 VITAMIN B12/FOLATE, SERUM PANEL Routine 02/25/2025 AMB REFERRAL TO NEUROLOGY Routine 01/28/2025 Impaired memory HM COLONOSCOPY Routine 02/28/2024 10:48 AM EST LIPID PANEL, STANDARD Routine 01/10/2023 9:06 AM EDT Mixed hyperlipidemia HEPATITIS C AB W/REFLEX TO HCV QUANT NAAT IF POSITIVE Routine 03/17/2022 9:32 AM EST HIV ANTIBODY/ANTIGEN, 4TH GENERATION Routine 03/17/2022 9:32 AM EST from Last 3 Months or Most Recently Relevant to Health Maintenance Results * Vitamin B12 (Cobalamin) and Folate Panel, Serum (02/25/2025) Blood Venous blood specimen / Unknown us Historical Provider LAB BLOOD ORDERABLES Natalee l Result * TSH (02/25/2025) Blood Venous blood specimen / Unknown us Historical Provider LAB BLOOD ORDERABLES Natalee l Result * Referral to Neurology (01/28/2025) Rajesh Phillips NP OUTPATIENT REFERRAL ORDERABL ES Final Result * Hm Colonoscopy (02/28/2024 10:48 AM EST) us Rajesh Phillips NP HEALTH MAINTENANCE Final Res ult * (ABNORMAL) Lipid panel (01/10/2023 9:06 AM EDT) Cholesterol, Total 161 (<200) MG/DL [facility] Triglyceride (mg/dL) in Serum/Plasma 222(H) (<150) MG/DL [facility] Comment:Fasting HDL Cholesterol 28(L) (>39) MG/DL [facility] LDL Cholesterol, Calculated 89 (0-130) MG/DL [facility] Non HDL Chol. (LDL+VLDL) 133 (<160) MG/DL [facility] Comment: Testing performed or reported by [facility], a Service of [facility], [address] [place] [address] Krishan Millan MD, Extractions Technician CLIA# [id number] Blood Venous blood specimen / Unknown 01/10/2023 9:06 AM EDT 01/10/2023 9:08 AM EDT Rajesh Phillips NP LAB BLOOD ORDERABLES Final R esult [facility] [address] [place] [address] * HIV ANTIBODY/ANTIGEN, 4TH GENERATION (03/17/2022 9:32 AM EST) Result 4th Gen HIV Antibody Antigen NEGATIVE (NEG) [facility] Comment: Negative for antibodies to HIV 1 and HIV 2 and P24 antigen. Reference range: Negative Additional note: Written patient authorization is required for each separate release of this test result. This test was performed on the [employer] immunoassay system. Testing performed or reported by [facility], a Service of [facility], [address] [place] [address] [place] [address] Krishan Millan MD, Extractions Technician CLIA# [id number] 03/17/2022 9:32 AM EST 03/17/2022 9:33 AM EST Josy OCHOA-C LAB BLOOD ORDERABLES Final Result Performing Organization Address City/[facility]/ZIP Co de Phone Number [facility] [address] [place] [address] * Hepatitis C Antibody w/Reflex HCV Quant PCR (03/17/2022 9:32 AM EST) Hepatitis C Virus Ab, Serum NEGATIVE (NEG) [facility] Comment: Reference range: Negative This test was performed on the [employer] immunoassay system. Testing performed or reported by [facility], a Service of [facility], [address] [place] [address] [place] [address] Krishan Millan MD, Extractions Technician [facility]# [id number] 03/17/2022 9:32 AM EST 03/17/2022 9:33 AM EST Josy OCHOA-C LAB BLOOD ORDERABLES Final Result Performing Organization Address [facility] Co de Phone Number [facility] [address] [place] [address] from Last 3 Months or Most Recently Relevant to Health Maintenance Insurance MED[employer] [facility] * Guarantor: Rafaelxi Bryson Account Type Relation to Patient Date of Phone Billing Address Personal/Family Self [address] * Guarantor: KjChris layneyeimy Account Type Relation to Patient Date of Phone Billing Address Personal/Family Self [address] * Guarantor: Rafaelxi Bryson Account Type Relation to Patient Date of Phone Billing Address Personal/Family Self [address] Care Teams Library Clerk Relationship Specialty Start Date End Date Rajesh Phillips NP [address] [place] [phone] PCP - General Internal Medicine 11/30/22 Kelby Mcconnell Community Health Worker Case Management 10/19/22
--- OUTSIDE RECORDS SUMMARY | 2025-03-10 16:38 | XMS_ITS | Encounter Summary ---
Author Organization [facility] Address [address] [place] [address] Phone Care Team Providers Care Junior Loan Processor Name Role Phone Rajesh Phillips NP Primary Care Provide r Encounter Details Date Type Department Care Team ([facility] st Contact Info) Description 02/28/2024 Procedure Pass [facility] Admitting Dept Virtual Department [address] [place] [address] Social History Tobacco Use Types Packs/Day Years [...] Description 07/23/2025 9:30 AM EDT Office Visit [facility] [address] [place] [address] 3rd Floor, [address] [place], [place] [id number] Yong Peralta MD [address] [facility], [address] [place] [address] [email or web address] documented as of this encounter Visit Diagnoses Not on filedocumented in this encounter Care Teams Junior Loan Processor Relationship Specialty Start Date End Date Rajesh Phillips NP PCP - General Nurse Practitioner 02/27/23 documented as of this encounter Additional Source Comments The information contained in this document represents components of the legal health record. It is not the complete legal health record.[facility]
--- OUTSIDE RECORDS SUMMARY | 2025-03-10 16:38 | XMS_ITS | Clinical Summary ---
Author Organization [facility] Address [address] [place] [address] Phone Care Team Providers Care Supervisor Printing And Stamping Name Role Phone Rajesh Phillips NP Primary Care Provide r Allergies Active Allergy Reactions Criticality Noted Date Comments Allergen Wkq-Lzyld-Qrfit Bee 025 Hornet Venom 10/07/2019 Mushroom 12/01/2024 [...] -has follow up with new pcp at [facility] -alcohol abstinence counseled Alcohol abuse 09/16/2021 Assessment & Plan (09/19/2021 1:04 PM EDT): Patient admits to 4 drinks per day, states he has never had DTs seizures or shakiness from alcohol withdrawal. No evidence of YOANA. Continue multivitamin thiamine folate while hospitalized [facility] Acute alcoholic pancreatitis 09/16/2021 Resolved [...] Department Care Team Description 02/10/2025 Transcribe Orders [facility] [address] [facility] 3rd Floor, [address] [place] [address] Laura Thompson Dyspnea, unspecified type (Primary Dx) 01/02/2025 1:00 PM EDT Office Visit [facility] [address] [place] [address] Brandon Joe CNP Post-operative state (Primary Dx); S/P bilateral inguinal hernia repair 12/12/2024 Telephone [facility] Surgery [place] [address] [place] [address] Mae Casey MD Post-op 12/11/2024 1:12 PM EDT - 12/11/2024 2:59 PM EDT Surgery OR Admitting Dept - [facility] Department [address] [place] [address] Mae Casey MD LAPAROSCOPIC REPAIR BILATERAL HERNIA INGUINAL with mesh 12/11/2024 12:29 PM EDT Anesthesia Event OR Admitting Dept - Virtual Department [address] [place] [address] Rei Irving MD 12/11/2024 11:18 AM EDT - 12/11/2024 4:29 PM EDT Hospital Encounter OR Admitting Dept - Virtual Department [address] [place] [address] Mae Casey MD Discharge Disposition: Home or Self Care 12/11/2024 Procedure Pass OR Admitting Dept - Virtual Department [address] [place] [address] 12/10/2024 8:30 AM EDT Pre-Admission Testing Pre Procedure Evaluation [address] [place] [address] Mae Casey MD from Last 3 Months Family History Medical [...] Description 07/23/2025 9:30 AM EDT Office Visit [facility] [address] [place] [address] 3rd Floor, [address] [place] [address] Yong Peralta MD [address] [facility], [address] [place] [address] [email or web address] Health Maintenance Due Date Last Done Comments [...] this topic Medical Devices Implanted Type Area Farmworker Grain Device Identifier Shelf Expiration Date Model / Serial / Lot Graft Mesh 10.5cm 16cm 3dmax Polypropylene Monofilament Patch Laparoscopy Hernia Repair Right Cs/1ea - [id number] Implanted:Qty: 1 on 12/11/2024 by Mae Casey MD at [facility] STANDARD Right: Groin [employer] 03/08/2029 [id number] / / [id number] Left Wrist Graft Mesh 10.5cm 16cm 3dmax Polypropylene Monofilament Patch Laparoscopy Hernia Repair Left Cs/1ea - [id number] Implanted:Qty: 1 on 12/11/2024 by Mae Casey MD at [facility] Left: Groin [employer] 03/08/2029 [id number] / / [id number] Procedures Procedure Name Priority Date/Time Associated Diagnosis Comments AIRWAY PLACEMENT Routine 12/11/2024 12:3 3 PM EDT MD LAP,INGUINAL HERNIA REPR,INITIAL 12/11/2024 12:28 PM EDT [...] not difficult to intubate. Procedure performed by: fellow/resident/ENVIRONMENTAL MONITORING TECHNICIAN Anesthesiologist: Rei Irving MD Fellow/Resident/ENVIRONMENTAL MONITORING TECHNICIAN: Sloane Muhammad CRNA Airway procedure initiated at:12/11/2024 [...] Complications observed? no us Rei Irving MD MD ANESTHESIA Final Result * ENDOSCOPY, COLON (02/28/2024 11:03 AM EST) Narrative Transcriptions Dave Clay MD - 02/28/2024 11:03 AM EST [facility] Patient Name: Bryson Elaine Attending MD:: DAVE CLAY MD, Procedure Date: 02/28/2024 11:03AM Date of : 1975 Age: 48 Admit Type: Outpatient Gender: Male Room: [facility] Referring MD: Rajesh Tillman Exam Type: Colonoscopy [...] monitored continuously. The Olympus adult variable colonoscope [id number] #[id number] was introduced through the anus and [...] 11:03 AM Procedure Code(s): --- Professional --- 60010, Colonoscopy, flexible; with removal of tumor(s), polyp(s), or other lesion(s) by snare technique --- Technical --- 45453, Colonoscopy, flexible; with removal of tumor(s), polyp(s), [...] or abscess without bleeding CPT copyright 2021 [employer]. All rights reserved. The codes documented in this report are preliminary and upon wrapper selector reviewmay be revised to meet current compliance requirements. Procedure Date: 02/28/2024 11:03:[address] [place] [address] Rajesh Tillman MD GI PROCEDURE ORDERA BLES Final Result * (ABNORMAL) Lipid panel (09/17/2021 6:26 AM EDT) HDL 28 mg/dL [facility] Comment: Interpretation <40 mg/dL: Low HDL cholesterol (major risk factor for CHD) Greater than or equal to 60 mg/dL: High HDL cholesterol ( negative risk factor for CHD) HDL - cholesterol is affected by a number of factors, e.g. smoking, excerise, hormones, sex and age. CHOLESTEROL 191 0 - 240 mg/dL [facility] TRIGLYCERIDES 135 30 - 160 mg/dL [facility] LDL 136(H) 50 - 129 mg/dL [facility] Comment: LDL levels in terms of risk for coronary heart disease: <100 mg/dL: Optimal 100-129 mg/dL: Near or above optimal 130-159 mg/dL: Borderline high 160-189 mg/dL: High >190 mg/dL: Very High CARDIAC RISK RATIO 6.8(H) 3.4 - 5.0 [facility] Blood 09/17/2021 6:26 AM EDT 09/17/2021 7:48 AM EDT us Kimmy Nickerson ELECTRONICS SUPERVISOR LAB BLOOD BKR ORDERABLE S Final Result [address] [address] * Hepatitis C antibody, qualitative (09/16/2021 7:41 PM EDT) HCV NON-REACTIV E NON-REACTI VE [facility] Blood 09/16/2021 7:41 PM EDT 09/16/2021 7:51 PM EDT us Kimmy Nickerson ELECTRONICS SUPERVISOR LAB BLOOD BKR ORDERABLE S Final Result Performing Organization Address City/[facility]/ZIP Co de Phone Number [address] [address] from Last 3 Months or Most Recently Relevant to Health Maintenance Insurance C3 ACO C3 ACO C3 ACO C3 ACO C3 ACO C3 ACO C3 ACO C3 ACO [facility] C3 ACO Advance Directives For more information, please contact: [phone] (9AM - 5PM [facility], Sunday-Sunday) Documents on File Type Date Recorded Patient Healthcare Economics Manager Expl anation Healthcare Proxy 09/21/2021 3:14 PM * Full Code (Latest Code Status on File) Date Activated Date Inactivated Comments 12/11/2024 11:28 AM Question Answer Comments Code Status Confirmed With: Patient * Full Code Date Activated Date Inactivated Comments 09/16/2021 7:23 PM 12/11/2024 11:28 AM Question Answer Comments Code Status Confirmed With: Patient Care Teams Supervisor Printing And Stamping Relationship Specialty Start Date End Date Rajesh Phillips NP PCP - General Nurse Practitioner 02/27/23 Additional Source Comments The information contained in this document represents components of the legal health record. It is not the complete legal health record.[facility]
--- OUTSIDE RECORDS SUMMARY | 2025-03-10 16:38 | XMS_ITS | Encounter Summary ---
Author Organization [facility] Address [address] [place] [address] Phone Care Team Providers Care Fire Services Plumber Name Role Phone Rajesh Phillips NP Primary Care Provide r Encounter Details Date Type Department Care Team ([facility] st Contact Info) Description 12/11/2024 Procedure Pass OR Admitting Dept - Virtual Department [address] [place] [address] Social History Tobacco Use Types Packs/Day Years [...] EDT Office Visit [facility] [address] [place] [address] 3rd Floor, [address] [place] [address] Yong Peralta MD 22 [facility], [address] [place] [address] documented as of this encounter Visit Diagnoses Not on filedocumented in this encounter Care Teams Fire Services Plumber Relationship Specialty Start Date End Date Rajesh Phillips NP PCP - General Nurse Practitioner 02/27/23 documented as of this encounter Additional Source Comments The information contained in this document represents components of the legal health record. It is not the complete legal health record.[facility]
--- OUTSIDE RECORDS SUMMARY | 2025-03-10 16:38 | XMS_ITS | Encounter Summary ---
Author Organization [employer] Address [address] [facility] 7t [place] [address] Care Team Providers Care Lead Engineer Name Role Phone Kelby Mcconnell Unavailable Unavailable Rajesh Phillips NP Primary Care Provider Encounter Details Date Type Department Care Team (Late st Contact Info) Description 02/26/2025 Orders Only [place] [facility] [address] [place] [address] Provider, MD Rahul Social History Tobacco Use Types Packs/Day Years [...] Description 06/15/2025 10:30 AM EDT Office Visit [place] [facility] [address] [place] [address] Rajesh Phillips NP [address] [place] [address] documented as of this encounter Procedures Procedure Name Priority Date/Time Associated Diagnosis Comments VITAMIN B12/FOLATE, SERUM PANEL Routine 02/25/2025 TSH Routine 02/25/2025 documented in this encounter Results * TSH (02/25/2025) Blood Venous blood specimen / Unknown Historical Provider LAB BLOOD ORDERABLES Natalee l Result * Vitamin B12 (Cobalamin) and Folate Panel, Serum (02/25/2025) Blood Venous blood specimen / Unknown us Historical Provider LAB BLOOD ORDERABLES Natalee l Result documented in this encounter Visit Diagnoses Not on filedocumented in this encounter Additional Health Concerns Assessment Noted Time PHQ-9 Depression Total Score: 8 02/15/20 23 3:56 PM EST documented as of this encounter Care Teams Lead Engineer Relationship Specialty Start Date End Date Rajesh Phillips NP [address] [place] [address] PCP - General Internal Medicine 11/30/22 Kelby Mcconnell Community Health Worker Case Management 10/19/22 documented as of this encounter
--- OUTSIDE RECORDS SUMMARY | 2025-03-10 16:38 | XMS_ITS | Encounter Summary ---
Author Organization [facility] Address [address] [place] [address] Phone Care Team Providers Care Irb Compliance Coordinator Name Role Phone Pcp, Unknown Primary Care Provider Rajesh Butterfield NP Primary Care Provide r Rajesh Phillips TRACTOR TECHNICIAN Primary Care Provide r Encounter Details Date Type Department Care Team (Late st Contact Info) Description 09/17/2021 Procedure Pass [address] [address] Social History Tobacco Use Types Packs/Day Years [...] Description 07/23/2025 9:30 AM EDT Office Visit [facility] [address] [place] [address] 3rd Floor, [address] [place] [address] Yong Peralta MD [address] [place] [address], [address] [place] [address] [email or web address] documented as of this encounter Visit Diagnoses Not on filedocumented in this encounter Care Teams Irb Compliance Coordinator Relationship Specialty Start Date End Date Pcp, Unknown PCP - General 09/16/21 12/14/22 Rajesh Phillips NP PCP - General Nurse Practitioner 12/15/22 02/26/23 Rajesh Phillips NP PCP - General Nurse Practitioner 02/27/23 documented as of this encounter Additional Source Comments The information contained in this document represents components of the legal health record. It is not the complete legal health record.[facility]
--- OUTSIDE RECORDS SUMMARY | 2025-03-10 16:38 | XMS_ITS | Encounter Summary ---
Author Organization [facility] Address [email or web address] [place] [address] Phone Care Team Providers Care Nurse Emergency Room Name Role Phone Rajesh Phillips NP Primary Care Provide r Encounter Details Date Type Department Care Team (Late st Contact Info) Description 10/22/2024 Procedure Pass [facility], Ct Scan - [address] [address] Social History Tobacco Use Types Packs/Day Years [...] Description 07/23/2025 9:30 AM EDT Office Visit [facility] [address] [place] [address] 3rd Floor, [address] [place] [address] Yong Peralta MD [address] [facility], [address] [place] [address] documented as of this encounter Visit Diagnoses Not on filedocumented in this encounter Care Teams Nurse Emergency Room Relationship Specialty Start Date End Date Rajesh Phillips NP PCP - General Nurse Practitioner 02/27/23 documented as of this encounter Additional Source Comments The information contained in this document represents components of the legal health record. It is not the complete legal health record.[facility]
--- OUTSIDE RECORDS SUMMARY | 2025-03-10 16:38 | XMS_ITS | Encounter Summary ---
Author Organization [facility] Address [address] [facility] [address] [place] [address] Phone Care Team Providers Care Travel Agent Name Role Phone Pcp, Unknown Primary Care Provider Rajesh Butterfield NP Primary Care Provide r Rajesh Phillips CLINICAL SUPPORT TECH Primary Care Provide r Encounter Details Date Type Department Care Team (Latest Contact Info) Description 02/14/2022 Transcribe Orders [facility] [address] [facility] 2nd [place] [address] Irina Mcneil NP [address] [place] [address] Alcohol-induced acute pancreatitis, unspecified complication status (Primary [...] Visit [facility] [address] [facility] 3rd Floor, [address] [place] [address] Yong Peralta MD 22 [facility], [address] [place] [address] [email or web address] documented as of this encounter Results * Iron and iron binding capacity (02/14/2022 3:18 PM EST) Pathologist [facility] IRON 121 45 - 160 ug/dL [facility] IRON BINDING CAPACITY 369 228 - 428 ug/dL [facility] TRANSFERRIN SATURAT. 33 20 - 55 % [facility] Blood 02/14/2022 3:18 PM EST 02/14/2022 3:21 PM EST Irina Mcneil NP LAB BLOOD BKR ORDERABLES Final Result [address] [address] * C-Reactive Protein (02/14/2022 3:18 PM EST) Pathologist [facility] C REACTIVE PROTEIN <3.0 0.0 - 4.0 mg/L [facility] Blood 02/14/2022 3:18 PM EST 02/14/2022 3:21 PM EST Irina Mcneil NP LAB BLOOD BKR ORDERABLES Final Result [address] [address] * (ABNORMAL) Comprehensive metabolic panel (02/14/2022 3:18 PM EST) Pathologist [facility] SODIUM 139 133 - 146 mmol/L [facility] POTASSIUM 3.8 3.3 - 5.1 mmol/L [facility] CHLORIDE 102 96 - 108 mmol/L [facility] CO2 23 21 - 35 mmol/L [facility] BUN 5(L) 6 - 19 mg/dL [facility] CREATININE 0.60 0.5 - 1.5 mg/dL [facility] GLUCOSE 135(H) 70 - 99 mg/dL [facility] ALBUMIN 4.2 3.9 - 4.8 g/dL [facility] TOTAL PROTEIN 7.4 6.5 - 8.0 g/dL [facility] CALCIUM 9.1 8.4 - 10.3 mg/dL [facility] ALKALINE PHOSPHATASE 117 39 - 117 U/L [facility] TOTAL BILIRUBIN 0.4 0.0 - 1.2 mg/dL [facility] AST 62(H) 0 - 37 U/L [facility] ALT 39 0 - 40 U/L [facility] GLOBULIN 3.2 1 - 4.8 g/dL [facility] EGFR >120 >59 mL/min/1.7 3m2 [facility] Comment:Estimated glomerular filtration rate calculated using the CKD-EPI refit equation. ANION GAP 18 10 - 20 mmol/L [facility] Blood 02/14/2022 3:18 PM EST 02/14/2022 3:21 PM EST us Irina Mcneil NP LAB BLOOD BKR ORDERABLES Final Result [facility] [address] [place] [address] * CBC (02/14/2022 3:18 PM EST) WBC 7.05 4.00 - 11.00 K/uL [facility] RBC 5.06 4.23 - 5.82 M/uL [facility] HGB 15.9 13.4 - 17.5 g/dL [facility] HCT 45.3 37.0 - 51.0 % [facility] PLT 244 140 - 430 K/uL [facility] MCV 89.5 78.0 - 97.0 fL [facility] MCH 31.4 25.0 - 33.0 pg [facility] MCHC 35.1 32.0 - 36.0 g/dL [facility] RDW 14.6 11.0 - 15.0 % [facility] MPV 9.7 8.4 - 12.8 fl [facility] Blood 02/14/2022 3:18 PM EST 02/14/2022 3:21 PM EST us Irina Anai Mcneil CLINICAL SUPPORT TECH LAB BLOOD BKR ORDERABLES Final Result [address] [address] documented in this encounter Visit Diagnoses Diagnosis Alcohol-induced acute pancreatitis, unspecified complication status- Primary Alcohol abuse Nondependent alcohol abuse, unspecified drinking behavior documented in this encounter Care Teams Travel Agent Relationship Specialty Start Date End Date Pcp, Unknown PCP - General 09/16/21 12/14/22 Rajesh Phillips NP PCP - General Nurse Practitioner 12/15/22 02/26/23 Rajesh Phillips NP PCP - General Nurse Practitioner 02/27/23 documented as of this encounter Additional Source Comments The information contained in this document represents components of the legal health record. It is not the complete legal health record.[facility]
--- OUTSIDE RECORDS SUMMARY | 2025-03-10 16:38 | XMS_ITS | Encounter Summary ---
Author Organization [facility] Address [address] [place] [address] [address] [place] [address] Care Team Providers Care Rn Community Health Name Role Phone Kelby Mcconnell Unavailable Unavailable Rajesh Phillips NP Primary Care Provider [phone] Reason for Visit * Reason Comments Med Refill Encounter Details Date Type Department Care Team (Late st Contact Info) Description 07/20/2022 Refill [facility] [address] [place] [address] Josy Alejo PA-C Social History Tobacco Use [...] Description 06/15/2025 10:30 AM EDT Office Visit [facility] [address] [place] [address] Rajesh Phillips NP [address] [place] [address] documented as of this encounter Visit Diagnoses Not on filedocumented in this encounter Care Teams Rn Community Health Relationship Specialty Start Date End Date Rajesh Phillips NP [address] [place] [address] PCP - General Internal Medicine 11/30/22 Kelby Mcconnell Community Health Worker Case Management 10/19/22 documented as of this encounter
--- OUTSIDE RECORDS SUMMARY | 2025-03-10 16:38 | XMS_ITS | Encounter Summary ---
Author Organization [employer] Address [address] [place] [address] 7t [place] [address] Care Team Providers Care Boom Boss Name Role Phone Kelby Mcconnell Unavailable Unavailable Rajesh Phillips NP Primary Care Provider Encounter Details Date Type Department Care Team (Late st Contact Info) Description 02/27/2023 Orders Only [facility] [address] [place] [address] Rajesh Phillips NP [address] [place] [address] Social History Tobacco Use Types Packs/Day Years [...] 06/15/2025 10:30 AM EDT Office Visit [facility] [address] [place] [address] Rajesh Phillips NP [address] [place] [address] documented as of this encounter Procedures Procedure [...] documented as of this encounter Care Teams Boom Boss Relationship Specialty Start Date End Date Rajesh Phillips NP 70 [place] [address] PCP - General Internal Medicine 11/30/22 Kelby Mcconnell Community Health Worker Case Management 10/19/22 documented as of this encounter
--- OUTSIDE RECORDS SUMMARY | 2025-03-10 16:38 | XMS_ITS | Encounter Summary ---
Author Organization [facility] Address [address] [facility] [address] [place] [address] Phone Care Team Providers Care Child Day Care Center Worker Name Role Phone Pcp, Unknown Primary Care Provider Rajesh Butterfield NP Primary Care Provide r Rajesh Phillips DRAFTER [employer]OGRAPHICAL Primary Care Provide r Encounter Details Date Type Department Care Team (Late st Contact Info) Description 12/16/2021 Procedure Pass [facility] Endoscopy Admitting Dept Virtual Department [address] [place] [address] Social History Tobacco Use Types Packs/Day Years [...] Description 07/23/2025 9:30 AM EDT Office Visit [facility] [address] [place] [address] 3rd Floor, [address] [place] [address] Yong Peralta MD [address] [facility], [address] [place] [address] [email or web address] documented as of this encounter Visit Diagnoses Not on filedocumented in this encounter Care Teams Child Day Care Center Worker Relationship Specialty Start Date End Date Pcp, Unknown PCP - General 09/16/21 12/14/22 Rajesh Phillips NP PCP - General Nurse Practitioner 12/15/22 02/26/23 Rajesh Phillips NP PCP - General Nurse Practitioner 02/27/23 documented as of this encounter Additional Source Comments The information contained in this document represents components of the legal health record. It is not the complete legal health record.[facility]
--- OUTSIDE RECORDS SUMMARY | 2025-03-10 16:38 | XMS_ITS | Encounter Summary ---
Author Organization [employer] Address [address] [facility] 7t [place] [address] Care Team Providers Care Tip Stitcher Name Role Phone Isaiah Mcconnelldulce Unavailable Unavailable Rajesh Phillips NP Primary Care Provider [phone] Reason for Visit * Reason Comments Med Refill Encounter Details Date Type Department Care Team (Late st Contact Info) Description 11/27/2024 Refill [facility] [address] [place] [address] Rajesh Phillips NP [address] [place] [address] Chronic left shoulder pain (Primary Dx); Arthritis [...] [facility] [address] [place] [address] Rajesh Phillips NP [address] [place] [address] documented as of this encounter Visit Diagnoses Diagnosis Chronic left shoulder pain- Primary Pain in joint, shoulder region Arthritis of right shoulder region documented in this encounter Additional Health Concerns Assessment Noted Time PHQ-9 Depression Total Score: 8 02/15/20 23 3:56 PM EST documented as of this encounter Care Teams Tip Stitcher Relationship Specialty Start Date End Date Rajesh Phillips NP [address] [place] [address] PCP - General Internal Medicine 11/30/22 Kelby Mcconnell Community Health Worker Case Management 10/19/22 documented as of this encounter
== END 2025-03-10 12:43 | disposition home or self-care (01) ==
LOC: HO.NEURO 12:42
PROVIDERS: PCP Nurse Practitioner Community Health; Visit Provider Psychiatry & Neurology Neurology
DX: R41.3 Other amnesia (principal)
CPT/HCPCS: 95816

== ENCOUNTER → 2025-03-10 14:10 | Outpatient (BNV) | payer MEDICARE, MEDICAID, SELFPAY | PROVIDERS: PCP Nurse Practitioner Community Health; Visit Provider Psychiatry & Neurology Neurology | DX: R94.01 Abnormal electroencephalogram [EEG] (principal); R41.3 Other amnesia | CPT/HCPCS: 95816 ==